=== PATIENT | female | born 1940 | race Caucasian/White ===

== ENCOUNTER → 2018-01-05 09:22 | Outpatient (POV) | payer MEDICARE, SELFPAY | PROVIDERS: Family Provider Internal Medicine; PCP Internal Medicine; Visit Provider Internal Medicine | DX: Z00.00 Encounter for general adult medical examination without abnormal findings (principal) ==

== ENCOUNTER → 2018-01-11 12:51 | Outpatient (CLI) | payer MEDICARE, OTHER, SELFPAY ==
--- NOTE | 2018-01-11 | CI_ITS ---
Cerebrovascular Exam Indications: 785.9 Bruit. Dementia. HTN. IMPRESSIONS 1. The bilateral vertebral arteries are patent with normal antegrade flow. 2. Study suggests 20-49% stenosis involving the right internal carotid artery and the left internal carotid artery. No change from the study of 31-Dec-2016. History: A bruit of the right carotid artery. Memory loss. Carotid duplex study. Complete study and Doppler flow study including spectral analysis, color and garber scale imaging. Height: Height: 165.1cm. Height: 65in. Weight: Weight: 70.3kg. Weight: 154.7lb. Body mass index: BMI: 25.8kg/m^2. Body surface area: BSA: 1.81m^2. Location: Vascular laboratory. Patient status: Outpatient. Tables: Arterial flow: + +--------+--------+ Location V sys V ed + +--------+--------+ Right CCA - proximal 116cm/s 18.1cm/s + +--------+--------+ Right CCA - distal 116cm/s 20.4cm/s + +--------+--------+ Right ECA 121cm/s -------- + +--------+--------+ Right ICA - proximal 99.8cm/s 29.9cm/s + +--------+--------+ Right ICA - mid 86.4cm/s 25.1cm/s + +--------+--------+ Right ICA - distal 93.5cm/s 27.5cm/s + +--------+--------+ Right vertebral 63.6cm/s -------- + +--------+--------+ Left CCA - proximal 95.9cm/s 18.9cm/s + +--------+--------+ Left CCA - distal 92.7cm/s 18.9cm/s + +--------+--------+ Left ECA 112cm/s -------- + +--------+--------+ Left ICA - proximal 67.9cm/s 17cm/s + +--------+--------+ Left ICA - mid 83.6cm/s 23.3cm/s + +--------+--------+ Left ICA - distal 88cm/s 23.9cm/s + +--------+--------+ Left vertebral 69.8cm/s -------- + +--------+--------+ Velocity ratios: + + + + + + Right, V sys Right, V ed Left, V sys Left, V ed + + + + + + Max ICA/dist CCA 0.86 1.47 0.95 1.26 + + + + + + (Report amended ) Electronically signed by: Evan Griggs [id number]
== END ==
PROVIDERS: Family Provider Internal Medicine; PCP Internal Medicine; Visit Provider Internal Medicine
DX: R09.89 Other specified symptoms and signs involving the circulatory and respiratory systems (principal)
CPT/HCPCS: 93880

== ENCOUNTER → 2018-03-22 11:23 | Outpatient (POV) | payer MEDICARE, SELFPAY | PROVIDERS: Visit Provider Nurse Practitioner Acute Care | DX: Z00.00 Encounter for general adult medical examination without abnormal findings (principal) ==

== ENCOUNTER → 2018-05-24 14:47 | Outpatient (POV) | payer MEDICARE, OTHER, SELFPAY | PROVIDERS: Visit Provider Nurse Practitioner Acute Care | DX: Z00.00 Encounter for general adult medical examination without abnormal findings (principal) ==

== ENCOUNTER → 2018-08-24 14:02 | Outpatient (POV) | payer MEDICARE, OTHER, SELFPAY | PROVIDERS: Visit Provider Dermatology | DX: Z00.00 Encounter for general adult medical examination without abnormal findings (principal) ==

== ENCOUNTER → 2018-09-14 10:39 | Outpatient (POV) | payer MEDICARE, OTHER, SELFPAY | PROVIDERS: Visit Provider Dermatology | DX: Z00.00 Encounter for general adult medical examination without abnormal findings (principal) ==

== ENCOUNTER → 2018-10-13 14:49 | Outpatient (CLI) | payer MEDICARE, OTHER, SELFPAY ==
--- NOTE | 2018-10-13 14:57 | XR_ITS ---
EXAM: XR cervical spine 5V HISTORY: ITS.REASON: NECK PAIN RADIATES TO LEFT SHOULDER ORDERING PHYSICIAN: Eloy Ruiz PATIENT AGE: 77 years COMPARISON: 06/10/2012. FINDINGS: There is generalized moderate osteopenia. There is minimal anterior subluxation of C4 on C5 which is stable and likely related to the facet hypertrophy. The anterior compression plate and fixation screws with osseous fusion across the disc space at C5-6 appear stable. Posterior elements are intact. The facet hypertrophy causes moderate osseous foraminal stenosis bilaterally at C3-4. There is no prevertebral soft tissue prominence. IMPRESSION: Osteopenia. No acute process. C4 on C5 subluxation is chronic and likely from facet arthrosis. Stable postoperative findings at C5-6. Moderate osseous foraminal stenosis because of facet arthrosis bilaterally at C3-4.
== END ==
PROVIDERS: PCP Internal Medicine; Visit Provider Internal Medicine
DX: M54.2 Cervicalgia (principal)
CPT/HCPCS: 72050

== ENCOUNTER 2018-12-15 14:00 | Outpatient (RCR) | payer MEDICARE, OTHER, SELFPAY | END 2018-12-15 14:05 | disposition home or self-care (01) | LOC: PT 14:00 | PROVIDERS: Visit Provider Internal Medicine | DX: M54.12 Radiculopathy, cervical region (principal) | CPT/HCPCS: 97010; 97014; 97035; 97110; 97140; 97163; G0283 ==

== ENCOUNTER → 2019-02-15 13:57 | Outpatient (POV) | payer MEDICARE, OTHER, SELFPAY | PROVIDERS: Visit Provider Dermatology | DX: Z00.00 Encounter for general adult medical examination without abnormal findings (principal) ==

== ENCOUNTER → 2020-06-11 16:26 | Outpatient (CLI) | payer MEDICARE, OTHER, SELFPAY ==
[2020-06-11 18:49] LABS: Coronavirus 19 IgG Antibody Positive (Negative); Coronavirus 19 IgM Antibody Negative (Negative)
== END ==
PROVIDERS: Visit Provider Ophthalmology
DX: Z01.812 Encounter for preprocedural laboratory examination (principal); Z20.822 Contact with and (suspected) exposure to COVID-19; Z86.16 Personal history of COVID-19; H25.11 Age-related nuclear cataract, right eye
CPT/HCPCS: 36415; 86328

== ENCOUNTER 2020-06-12 07:30 | Day surgery (SDC) | payer MEDICARE, SELFPAY ==
[2020-06-12 08:27] VITALS: BP 168/103; PULSE 76; RESP 16; TEMP 36.6; O2SAT 93; BMI 26.7
[2020-06-12 09:20] VITALS: BP 137/62; PULSE 64; RESP 18; O2SAT 93
[2020-06-12 09:25] VITALS: BP 128/60; PULSE 63; RESP 18; O2SAT 93
[2020-06-12 09:30] VITALS: BP 135/63; PULSE 60; RESP 18; O2SAT 96
[2020-06-12 09:35] VITALS: BP 143/64; PULSE 62; RESP 18; O2SAT 96
[2020-06-12 09:40] VITALS: BP 161/76; PULSE 68; RESP 16; TEMP 36.4; O2SAT 94
== END 2020-06-12 09:48 | disposition home or self-care (01) ==
LOC: OR 07:35
PROVIDERS: PCP Internal Medicine Adolescent Medicine; Visit Provider Ophthalmology
DX: H25.813 Combined forms of age-related cataract, bilateral (principal); H53.149 Visual discomfort, unspecified; I10 Essential (primary) hypertension; E78.5 Hyperlipidemia, unspecified; M19.90 Unspecified osteoarthritis, unspecified site; H91.90 Unspecified hearing loss, unspecified ear; Z88.0 Allergy status to penicillin; Z85.828 Personal history of other malignant neoplasm of skin
CPT/HCPCS: 66984; V2632

== ENCOUNTER → 2020-06-25 12:32 | Outpatient (CLI) | payer MEDICARE, SELFPAY ==
[2020-06-25 13:51] LABS: Coronavirus 19 IgG Antibody Positive (Negative); Coronavirus 19 IgM Antibody Negative (Negative)
== END ==
PROVIDERS: Visit Provider Ophthalmology
DX: Z01.812 Encounter for preprocedural laboratory examination (principal)
CPT/HCPCS: 36415; 86328

== ENCOUNTER 2020-06-26 08:36 | Day surgery (SDC) | payer MEDICARE, SELFPAY ==
[2020-06-19 11:45] VITALS: BMI 25.9
[2020-06-26 09:33] VITALS: BP 148/70; PULSE 73; RESP 18; TEMP 36.6; O2SAT 94
[2020-06-26 10:37] VITALS: BP 168/70; PULSE 61; RESP 16; O2SAT 94
[2020-06-26 10:42] VITALS: BP 139/64; PULSE 61; RESP 16; O2SAT 97
[2020-06-26 10:47] VITALS: BP 147/55; PULSE 59; RESP 16; O2SAT 99
[2020-06-26 10:52] VITALS: BP 144/66; PULSE 59; RESP 16; O2SAT 99
[2020-06-26 10:57] VITALS: BP 133/72; PULSE 65; RESP 16; TEMP 36.8; O2SAT 93
== END 2020-06-26 11:10 | disposition home or self-care (01) ==
LOC: OR 08:38
PROVIDERS: PCP Internal Medicine Adolescent Medicine; Visit Provider Ophthalmology
DX: H25.813 Combined forms of age-related cataract, bilateral (principal); H53.149 Visual discomfort, unspecified; I10 Essential (primary) hypertension; E78.5 Hyperlipidemia, unspecified; M19.90 Unspecified osteoarthritis, unspecified site; H91.90 Unspecified hearing loss, unspecified ear; Z85.828 Personal history of other malignant neoplasm of skin; Z87.19 Personal history of other diseases of the digestive system; Z88.0 Allergy status to penicillin; Z88.2 Allergy status to sulfonamides; Z79.899 Other long term (current) drug therapy; Z79.82 Long term (current) use of aspirin
CPT/HCPCS: 66984; V2632

== ENCOUNTER 2020-08-25 11:15 | Emergency (ER) | payer MEDICARE, SELFPAY ==
[2020-08-25 12:07] LABS: Apearance,Urine Clear (Clear); Color,Urine Yellow (Yellow); Protein,Urine Negative (Negative); Specific Gravity, Urine 1.025 (1.005-1.030)
[2020-08-25 12:08] LABS: Bilirubin,Urine Negative (Negative); Blood, Urine Negative (Negative); Glucose,Urine (UA) Negative (Negative); Ketones,Urine Negative (Negative); UTC Leukocyte Esterase,Urine Negative (Negative); UTC Nitrate,Urine Negative (Negative); Urobilinogen,Urine 0.2 EU/dl (0.2)
[2020-08-25 12:14] VITALS: BP 159/80; PULSE 75; RESP 17; TEMP 36.8; O2SAT 95; BMI 25.8
--- NOTE | 2020-08-25 12:23 | HMH.EDUTC ---
[facility] [place] Clinical Impression: Low back pain Qualifiers: Chronicity: acute Back pain laterality: right Sciatica presence: without sciatica Qualified Code(s): M54.5 - Low back pain Disposition: Home, Self-Care Condition on Discharge: Good Instructions: DI for Low Back Pain, Methocarbamol Additional Instructions: Go home and rest. No heavy lifting. No twisting. Take the oral medications as directed. The muscle relaxer (robaxin) will make you drowsy, so don't drive or operate heavy machinery after taking it. Follow up with your regular doctor. GO TO THE ER FOR ANY WORSENING SYMPTOMS OR CONCERN, ESPECIALLY BOWEL OR BLADDER ISSUES, SADDLE AREA NUMBNESS, FEVER, ETC Prescriptions: methocarbamoL [Methocarbamol] 500 mg PO BIDP PRN #30 tab PRN Reason: Muscle Spasm Transmission Status: Received by [facility] predniSONE [Prednisone 20mg Tab] 20 mg PO BID 3 Days #6 tab Transmission Status: Received by [facility] Referrals: Stephan Tello MD [Primary Care Provider] - Time of Disposition: 12:25 Medical Decision Making - Medical Records Medical records reviewed: No: I reviewed the patient's medical records. - [place] Inquiry Pt receiving controlled substance: No Vital Signs: 08/25/20 12:14 08/25/20 12:27 Temperature 98.2 F 98.2 F Temperature Source Oral Pulse Rate 75 Pulse Rate [Left] 75 Respiratory Rate 17 17 Blood Pressure 159/80 H Blood Pressure [Right Arm] 159/80 H Blood Pressure Mean [Right Arm] 106 Blood Pressure Source [Right Arm] Automatic Cuff Blood Pressure Position [Right Arm] Sitting 02 Sat by Pulse Oximetry 95 Oxygen Delivery Method Room Air - Lab Data Lab results reviewed: Yes: I reviewed the patient's lab results. Lab Results 08/25/20 11:49: Urine Color Yellow, Urine Appearance Clear, Urine pH 7.0, Ur Specific [place] 1.025, Urine Protein Negative, Urine Glucose (UA) Negative, Urine Ketones Negative, Urine Blood Negative, Urine Nitrate Negative, Urine Bilirubin Negative, Urine Urobilinogen 0.2, Ur Leukocyte Esterase Negative [facility] [place] - General Stated complaint: back pain no AO Time Seen by Provider: 08/25/20 12:20 Mode of Arrival: Ambulatory Source of Information: Patient, Relative Limitations: No Limitations Description of Symptoms (Recalled from Triage Doc. by RN): Lower right back pain HEENT Symptoms (Recalled from RN notes): No Resp Symptoms (Recalled from RN notes): No Skin Symptoms (Recalled from RN notes): No MS Symptoms (Recalled from RN notes): Yes Functional Status (Recalled from RN notes): wnl - History of Present Illness Provider Complaint: She c/o low back pain for the past 3 days. She denies any injury. - Related Data Home Medications Medication Instructions Recorded Confirmed aspirin 81 mg tablet,delayed 81 mg PO DAILY 02/25/18 06/19/20 release cholecalciferol (vitamin D3) 125 5,000 unit PO DAILY 02/25/18 06/19/20 mcg (5,000 unit) capsule famotidine 20 mg tablet 20 mg PO BID 02/25/18 06/19/20 gabapentin 300 mg capsule 300 mg PO BID 02/25/18 06/19/20 lovastatin 40 mg tablet 40 mg PO QPM 02/25/18 06/19/20 memantine 10 mg tablet 10 mg PO BID 02/25/18 06/19/20 metoprolol tartrate 50 mg tablet 50 mg PO BID 02/25/18 06/19/20 multivitamin,tl-ukvw-gwdwjcsg 1 tab PO DAILY 02/25/18 06/19/20 oxycodone-acetaminophen 5 mg-325 1 tab PO Q4-6H PRN 02/25/18 06/26/20 mg tablet ranitidine HCl 300 mg capsule 300 mg PO QHS 02/25/18 06/19/20 verapamil 240 mg 24 hr 240 mg PO DAILY 02/25/18 06/19/20 capsule,extended release Furosemide [Lasix 20mg tab] 20 mg PO DAILY 06/12/20 06/19/20 Sucralfate [Carafate 1gm Tab] 1 gm PO ACHS 06/12/20 06/19/20 Previous Rx's Medication Instructions Recorded Albuterol Sulfate [Albuterol HFA 2 puffs IH Q6HP PRN #1 inh 04/23/18 Inhaler] methocarbamoL [Methocarbamol] 500 mg PO BIDP PRN #30 tab 08/25/20 predniSONE [Prednisone 20mg 20 mg PO BID 3 Days #6 tab 0
[2020-08-25 12:27] VITALS: BP 159/80; PULSE 75; RESP 17; TEMP 36.8; O2SAT 95
== END 2020-08-25 12:28 | disposition home or self-care (01) ==
PROVIDERS: Emergency Provider Nurse Practitioner Family; PCP Internal Medicine Adolescent Medicine
DX: M54.5 Low back pain (principal); E78.5 Hyperlipidemia, unspecified; I10 Essential (primary) hypertension; Z88.0 Allergy status to penicillin; Z88.2 Allergy status to sulfonamides; Z79.899 Other long term (current) drug therapy
CPT/HCPCS: G0463; 81003; 99202

== ENCOUNTER → 2021-03-07 10:04 | Outpatient (CLI) | payer MEDICARE, SELFPAY ==
[2021-03-07 11:30] LABS: Alanine Aminotransferase 22 U/L (12-78); Albumin Level 4.3 g/dl (3.5-5.0); Alkaline Phosphatase 63 U/L (38-126); Anion Gap 10.3 mEq/L (5-15); Aspartate Amino Transferase 28 U/L (14-36); Bilirubin,Total 0.4 mg/dl (0.2-1.3); Blood Urea Nitrogen 16 mg/dl (7-17); Calcium 9.4 mg/dl (8.4-10.2); Carbon Dioxide 30 mmol/L (22.0-30.0); Chloride 102 mmol/L (98-107); Chol/HDL Ratio 2.4 (1-3.5); Cholesterol 145 mg/dl (140-200); Estimated Glomerular Filt Rate 96 ml/min (>60); GFR (African American) 116 ML/MIN (>60); Globulin 2.2 g/dL (1.3-3.2); Glucose 110 mg/dl (74-100); HDL Cholesterol 61 mg/dl (40-60); Potassium 4.3 mmoL/L (3.5-5.1); Sodium 138 mmol/L (136-145); Total Protein,Serum 6.5 g/dl (6.3-8.2); Triglycerides 142 mg/dl (30-150); VLDL Cholesterol 28 mg/dL (0-40)
[2021-03-07 11:40] LABS: Direct LDL Cholesterol 65.18 mg/dL (100-129)
== END ==
PROVIDERS: Visit Provider Nurse Practitioner Family
DX: I10 Essential (primary) hypertension (principal); R73.03 Prediabetes; E78.5 Hyperlipidemia, unspecified
CPT/HCPCS: 36415; 80053; 80061; 83036

== ENCOUNTER → 2022-02-11 11:11 | Outpatient (POV) | payer MEDICARE, SELFPAY | PROVIDERS: Visit Provider Dermatology | DX: Z00.00 Encounter for general adult medical examination without abnormal findings (principal) ==

== ENCOUNTER → 2022-04-07 08:51 | Outpatient (CLI) | payer MEDICARE, SELFPAY ==
--- NOTE | 2022-04-07 08:58 | CT_ITS ---
FINAL REPORT CLINICAL HISTORY: ACUTE MIDLINE LOW BACK PAIN FINDINGS: Axial imaging of the lumbar spine was obtained without contrast. Sagittal and coronal reformatted images were also obtained and reviewed.This study was performed with techniques to keep radiation doses as low as reasonably achievable (ALARA). Individualized dose reduction techniques using automated exposure control or adjustment of mA and/or kV according to the patient's size were employed. There is fusion of L3 through L5. There is rightward curvature. There is a moderate L5 inferior endplate compression fracture with 40% loss of central height. The L5 vertebral body has a heterogeneous appearance and a pathologic fracture is not excluded. There is no evidence of significant central canal stenosis. T11-T12: There is an annular disc bulge with facet arthropathy and vertebral osteophytes. There is severe right and moderate left neural foraminal narrowing. T12-L1: There is an annular disc bulge with facet arthropathy and vertebral osteophytes. There is mild right neural foraminal narrowing. L1-2: There is an annular disc bulge with facet arthropathy and vertebral osteophytes. There is mild right and moderate left neural foraminal narrowing. L2-3: There is an annular disc bulge with facet arthropathy and vertebral osteophytes. There is mild right and moderate left neural foraminal narrowing. L3-4: There is fusion at this level with facet arthropathy and vertebral osteophytes. L4-5: There is fusion at this level with L4 laminectomies. There is facet arthropathy and vertebral osteophytes with mild bilateral neural foraminal narrowing. L5-S1: There is an annular disc bulge with facet arthropathy and vertebral osteophytes. There is moderate bilateral neural foraminal narrowing. There is spurring of the SI joints. IMPRESSION: Multilevel degenerative change and spondylosis with areas of neural foraminal narrowing which is worse on the right at T11-12. Moderate L5 inferior endplate compression fracture the or with 40% loss of central height. L5 vertebral body has heterogeneous appearance and a pathologic fracture is not excluded. Reviewed, Interpreted and Dictated by Barron Carrasco III, MD Transcribed by Toya Lepe Authenticated and [facility]
== END ==
PROVIDERS: PCP Internal Medicine Adolescent Medicine; Visit Provider Nurse Practitioner Family
DX: M54.42 Lumbago with sciatica, left side (principal)
CPT/HCPCS: 72131

== ENCOUNTER 2023-06-27 16:34 | Emergency (ER) | payer MEDICARE, SELFPAY ==
[2023-06-27 16:45] VITALS: BP 177/79; PULSE 80; RESP 18; TEMP 36.4; O2SAT 93; BMI 29.2
--- NOTE | 2023-06-27 16:57 | XR_ITS ---
PROCEDURE INFORMATION: Exam: XR Lumbosacral Spine Exam date and time: 06/27/2023 4:59 PM Age: 82 years old Clinical indication: Low back pain TECHNIQUE: Imaging protocol: Radiologic exam of the lumbosacral spine. Views: 2 or 3 views. COMPARISON: CT LUMBAR SPINE WO CON 04/07/2022 9:11 AM FINDINGS: Bones/joints: Osteopenia. Moderate rightward convexity lumbar scoliotic curvature centered at L2-L3. L3-L5 laminectomy and fusion without gross hardware complication. No acute fractures. Chronic mild-moderate inferior endplate compression deformity of L5 unchanged. Chronic severe disc degenerative changes T10-11 through L2-L3 Soft tissues: No gross soft tissue abnormalities. Gastrointestinal tract: Unremarkable bowel gas pattern. Vasculature: Moderate-severe calcific atherosclerosis. Intrapelvic phleboliths noted. IMPRESSION: No acute findings.
--- NOTE | 2023-06-27 16:57 | XR_ITS ---
PROCEDURE INFORMATION: Exam: XR Left Hip Exam date and time: 06/27/2023 4:57 PM Age: 82 years old Clinical indication: Hip pain; Left hip TECHNIQUE: Imaging protocol: Radiologic exam of the left hip. Views: 2 or 3 views hip with pelvis when performed. COMPARISON: ABDPELW/O CT ABD PELVIS W/O CONTRAST 02/26/2017 10:51 AM FINDINGS: Bones/joints: Osteopenia. No fracture or dislocation. 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 No diastasis. L3-S1 fusion without gross hardware complication or change. Mild enthesopathy at the ischial tuberosities and greater trochanters. Soft tissues: No gross soft tissue abnormalities. IMPRESSION: No acute findings.
--- NOTE | 2023-06-27 17:00 | PC.NURSE ---
Called RAD for xray
--- NOTE | 2023-06-27 17:13 | EXP.UTC ---
Discharge Plan Disposition Patient Disposition: Home, Self-Care Condition: Good Prescriptions Prescriptions: New prednisone 20 mg tablet 20 mg PO BID Qty: 10 0RF No Action memantine 10 mg tablet 10 mg PO BID verapamil 240 mg capsule,ext rel. pellets 24 hr 240 mg PO DAILY lovastatin 40 mg tablet 40 mg PO QPM gabapentin 300 mg capsule 300 mg PO BID oxycodone-acetaminophen 5-325 mg tablet 1 tab PO Q4-6H PRN (Reason: pain) aspirin [Adult Low Dose Aspirin] 81 mg tablet,delayed release (DR/EC) 81 mg PO DAILY Complete Multivitamin tablet 1 tab PO DAILY cholecalciferol (vitamin D3) 5,000 unit capsule 5,000 unit PO DAILY sucralfate 1 GM tablet 1 gm PO ACHS furosemide 20 MG tablet 20 mg PO DAILY potassium chloride 10 mEq capsule, extended release 10 meq PO DAILY omeprazole 20 mg capsule,delayed release(DR/EC) 20 mg PO DAILY Referrals Follow up/Referrals: Stephan Tello MD [Primary Care Provider] - See instructions Clinical Impressions Clinical Impression: Arthritis Low back pain Qualifiers: Chronicity: acute Back pain laterality: right Sciatica presence: without sciatica Qualified Code(s): M54.5 - Low back pain Instructions Patient Instructions: DI for Low Back Pain Discharge ED Provider: Alfreda ([facility])David [facility] General Stated complaint: lower back pain Mode of Arrival: Ambulatory Source of Information: Patient Limitations: No Limitations Time Seen by Provider: 06/27/23 17:08 Description of Symptoms (Recalled from Triage Doc. by RN): Pt's symptoms are lower back pain. She has been walking more than usual. HEENT Symptoms (Recalled from RN notes): Yes Resp Symptoms (Recalled from RN notes): No Skin Symptoms (Recalled from RN notes): No MS Symptoms (Recalled from RN notes): No Functional Status (Recalled from RN notes): n/a History of Present Illness Provider Complaint: 82 yr old female presents for c/o lower back pain. She has been walking more than usual. pt with walking Related Data Home Medications Medication Instructions Recorded Confirmed aspirin 81 mg tablet,delayed 81 mg PO DAILY Heart disease 02/25/18 06/27/23 release (Adult Low Dose Aspirin) cholecalciferol (vitamin D3) 125 5,000 unit PO DAILY Supplement 02/25/18 06/27/23 mcg (5,000 unit) capsule gabapentin 300 mg capsule 300 mg PO BID Pain 02/25/18 06/27/23 lovastatin 40 mg tablet 40 mg PO QPM Cholesterol 02/25/18 06/27/23 memantine 10 mg tablet 10 mg PO BID memory 02/25/18 06/27/23 multivitamin,zt-nlfv-alwjealy 1 tab PO DAILY Supplement 02/25/18 06/27/23 (Complete Multivitamin tablet) oxycodone-acetaminophen 5 mg-325 1 tab PO Q4-6H PRN pain 02/25/18 06/27/23 mg tablet verapamil 240 mg 24 hr 240 mg PO DAILY blood pressure 02/25/18 06/27/23 capsule,extended release furosemide 20 mg tablet 20 mg PO DAILY Edema 06/12/20 06/27/23 sucralfate 1 gram tablet 1 gm PO ACHS stomach 06/12/20 06/27/23 omeprazole 20 mg capsule,delayed 20 mg PO DAILY 06/27/23 06/27/23 release potassium chloride 10 mEq 10 meq PO DAILY 06/27/23 06/27/23 capsule,extended release Previous Rx's Medication Instructions Recorded prednisone 20 mg tablet 20 mg PO BID #10 tabs 06/27/23 Allergies Allergy/AdvReac Type Severity Reaction Status Date / Time Penicillins [PENICILLINS] Allergy Unknown I-RASH Verified 06/27/23 17:10 Sulfa (Sulfonamide Allergy Unknown I-RASH Verified 06/27/23 17:10 Antibiotics) [SULFA (SULFONAMIDE ANTIBIOTICS)] Worker's Comp Is this a Worker's Comp case?: No [facility] Disclaimer: The information contained in this section may have been updated after the patient was seen, as this information can be updated by other users. 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 , [employer]) Smoking Status: Never smoker second hand exposure: No alcohol intake: never current occupational status: other Travel in the last 8 weeks: None household members: family housing: house current occupational exposures/hazards: No caffeine: No ROS Obtained: Yes All systems reviewed & no additional complaints except as documented Constitutional Constitutional: Reports system reviewed and no additional complaints, except as documented Eyes Eyes: Reports system reviewed and no additional complaints, except as documented ENT Ears, Nose, Mouth, and Throat: Reports system reviewed and no additional complaints, except as documented Cardiovascular Cardiovascular: Reports system reviewed and no additional complaints, except as documented Respiratory Respiratory: Reports system reviewed and no additional complaints, except as documented Gastrointestinal Gastrointestingal: Reports system reviewed and no additional complaints, except as documented Genitourinary Female Genitourinary: Reports system reviewed and no additional complaints, except as documented, Reports as per HPI and Reports urinary frequency Musculoskeletal Musculoskeletal: Reports system reviewed and no additional complaints, except as documented, Reports as per HPI, Reports arthralgias and Reports back pain Integumentary/Breasts Skin/Breast: Reports system reviewed and no additional complaints, except as documented Neurologic Neurologic: Reports system reviewed and no additional complaints, except as documented Endocrine Endocrine: Reports system reviewed and no additional complaints, except as documented Hematologic/Lymphatic Henatologic/Lymphatic: Reports system reviewed and no additional complaints, except as documented Allergic/Immunologic Allergic/Immunologic: Reports system reviewed and no additional complaints, except as documented Physical Exam General General appearance: alert and in no apparent distress Head Head exam: atraumatic Eye Eye exam: Present normal appearance and PERRL ENT ENT exam: Present normal exam Respiratory Respiratory exam: Present normal lung sounds bilaterally Cardiovascular Cardiovascular exam: Present regular rate and normal rhythm Extremities Exam Extremities exam: Present normal inspection and normal capillary refill Back Exam Back exam: Present normal inspection, tenderness and CVA tenderness (L) Back 1 view image: 1. tender Neurological Exam Neurological exam: Present alert Skin Skin exam: Present warm and intact Medical Decision Making Medical Records Medical records reviewed: Yes I reviewed the patient's medical records. [place] Inquiry Pt receiving controlled substance: No [place] was queried for this patient: No Vital Signs: 06/27/23 16:45 Temperature 97.6 F Temperature Source Oral Pulse Rate [Right Radial] 80 Respiratory Rate 18 Blood Pressure [Right Arm] 177/79 H Blood Pressure Mean [Right Arm] 111 Blood Pressure Source [Right Arm] Automatic Cuff Blood Pressure Position [Right Arm] Sitting 02 Sat by Pulse Oximetry 93 L Oxygen Delivery Method Room Air Lab Data Lab results reviewed: Yes I reviewed the patient's lab results. Orders (Tests/Meds): ORDERS Category Date Time Status Hip XR left minimum 2 views [XR hip LT 2-3V w/pelvis] Exams 06/27/23 16:57 Taken Stat Lumbar spine XR 2-3 views [XR lumbar spine 2-3V] Stat Exams 06/27/23 16:57 Taken
[2023-06-27 17:42] LABS: Apearance,Urine Clear (Clear); Bilirubin,Urine Negative (Negative); Blood, Urine Negative (Negative); Color,Urine Yellow (Yellow); Glucose,Urine (UA) Negative (Negative); Ketones,Urine Negative (Negative); PH,Urine 5.5 (5.0-8.5); Protein,Urine Negative (Negative); UTC Leukocyte Esterase,Urine Negative (Negative); UTC Nitrate,Urine Negative (Negative); Urobilinogen,Urine 0.2 EU/dl (0.2)
[2023-06-27 18:12] VITALS: BP 177/79; PULSE 80; RESP 18; TEMP 36.4; O2SAT 94
== END 2023-06-27 18:12 | disposition home or self-care (01) ==
PROVIDERS: Emergency Provider Nurse Practitioner Family; PCP Internal Medicine Adolescent Medicine
DX: M54.50 Low back pain, unspecified (principal); M16.9 Osteoarthritis of hip, unspecified
CPT/HCPCS: 72100; 73502; 81003; 99212; 99214; G0463

== ENCOUNTER 2023-12-24 20:25 | Inpatient (IN) | payer MEDICARE, SELFPAY ==
[2023-12-24] VITALS (11 sets, daily range): BP systolic 101–132; BP diastolic 57–81; PULSE 77–140; RESP 19–29; TEMP 36.7; O2SAT 91–98; BMI 32.9
--- NOTE | 2023-12-24 20:36 | ECG_ITS ---
APPROVED REPORT Exam: Resting ECG HR:134 bpm ECG Measurements Heart Rate 134 AXES QRSd 142 QRS 20 QT 343 T 195 QTc 422 Conclusion ATRIAL FIBRILLATION WITH RAPID VENTRICULAR RESPONSE LEFT BUNDLE BRANCH BLOCK [120+ ms QRS DURATION, 80+ ms Q/S IN V1/V2, 85+ ms R IN I/aVL/V5/V6] ABNORMAL ECG UNCONFIRMED REPORT Electronically signed by : JESSICA ELLSWORTH, 12/25/2023 00:32:36
--- NOTE | 2023-12-24 21:01 | CT_ITS ---
PROCEDURE INFORMATION: Exam: CT Head Without Contrast Exam date and time: 12/24/2023 9:13 PM Age: 83 years old Clinical indication: Other: Confusion TECHNIQUE: Imaging protocol: Computed tomography of the head without contrast. Radiation optimization: All CT scans at this facility use at least one of these dose optimization techniques: automated exposure control; mA and/or kV adjustment per patient size (includes targeted exams where dose is matched to clinical indication); or iterative reconstruction. COMPARISON: CR (C SPINE OBL, CSPINE, C SPINE OBL) 10/13/2018 3:05 PM FINDINGS: Tubes, catheters and devices: Lithia artifact from bilateral cochlear implants with prior mastoidectomies. Brain: No evidence for intracranial hemorrhage, mass lesions or acute stroke. Intracranial vascular calcifications. Moderate small vessel ischemic change in the periventricular white matter. Cerebral ventricles: Moderate ventricular prominence. Pituitary gland and sella: Negative Paranasal sinuses: Visualized sinuses are unremarkable. No fluid levels. Mastoid air cells: Visualized mastoid air cells are well aerated. Orbital cavities: Bilateral cataract extractions. Parotid and submandibular glands: Negative Bones: Unremarkable. No acute fracture. Soft tissues: Unremarkable. Vasculature: Negative. Other findings: Mild generalized atrophy. Lithia artifact from the external portion of the cochlear implants. IMPRESSION: 1. No evidence for intracranial hemorrhage, mass lesions or acute stroke. 2. Intracranial vascular calcifications. 3. Mild generalized atrophy. 4. Moderate small vessel ischemic change in the periventricular white matter. 5. Moderate ventricular prominence. 6. Lithia artifact from bilateral cochlear implants with prior mastoidectomies. 7. Lithia artifact from the external portion of the cochlear implants. 8. Bilateral cataract extractions.
--- NOTE | 2023-12-24 21:01 | XR_ITS ---
PROCEDURE INFORMATION: Exam: XR Chest Exam date and time: 12/24/2023 9:09 PM Age: 83 years old Clinical indication: Shortness of breath; Additional info: SOB TECHNIQUE: Imaging protocol: Radiologic exam of the chest. Views: 1 view. COMPARISON: CR CXR2V XR chest 2V 04/23/2018 2:42 PM FINDINGS: Lungs: Mild indistinctness of the pulmonary vessels. Low lung volumes. Patchy opacification retrocardiac left lower lobe. Pleural spaces: Unremarkable. No pleural effusion. No pneumothorax. Heart/Mediastinum: Mild cardiomegaly. Bones/joints: Unremarkable. IMPRESSION: 1. Mild cardiomegaly. 2. Mild indistinctness of the pulmonary vessels. Venous congestion versus perihilar atelectasis. 3. Low lung volumes. 4. Patchy opacification retrocardiac left lower lobe. Atelectasis or consolidation left lower lobe.
[2023-12-24] MEDS: RINGERS SOLUTION,LACTATED 500 ML 999 ML IV (21:11)
--- NOTE | 2023-12-24 21:11 | PC.NURSE ---
pt to radiology at this time
[2023-12-24 21:19] LABS: Coronavirus 19, PCR Not Detected (NotDetected); Influenza A, PCR Not Detected (NotDetected); Influenza B, PCR Not Detected (NotDetected)
[2023-12-24 21:21] LABS: Basophils # 0.1 K/mm3 (0-0.2); Basophils % 0.7 % (0.1-2.0); Eosinophils # 0.1 K/mm3 (0.0-0.4); Eosinophils % 0.7 % (0.1-12.0); Hematocrit 46.1 % (37.0-47.0); Hemoglobin 14.5 g/dL (12.2-16.2); Lymphocytes # 1.7 K/mm3 (0.7-4.5); Lymphocytes % 15.4 % (10-50); Mean Corpuscular HGB Conc 31.5 g/dL (31.8-35.4); Mean Corpuscular Volume 104.9 fl (81-99); Mean Platelet Volume 10.2 fl (7.4-10.4); Monocytes # 0.8 K/mm3 (0.1-1.0); Monocytes % 7.2 % (1.7-9.3); Neutrophils # 8.3 K/mm3 (1.8-7.8); Platelet Count 279 K/mm3 (142-424); Red Cell Distribution Width 13.6 % (11.5-17.5); White Blood Count 10.9 K/mm3 (4.8-10.8)
[2023-12-24 21:24] LABS: Albumin Level 4.3 g/dl (3.5-5.0); Chloride 106 mmol/L (98-107); Sodium 140 mmol/L (136-145)
[2023-12-24 21:25] LABS: Potassium 4.2 mmoL/L (3.5-5.1)
[2023-12-24 21:27] LABS: Alanine Aminotransferase 321 U/L (12-78); Albumin/Globulin Ratio 1.6 (1.1-1.8); Alkaline Phosphatase 93 U/L (38-126); Aspartate Amino Transferase 544 U/L (14-36); Bilirubin,Total 1.1 mg/dl (0.2-1.3); Blood Urea Nitrogen 35 mg/dl (7-17); Carbon Dioxide 26 mmol/L (22.0-30.0); Creatinine Clearance Estimated 55 mL/min (50-200); Estimated Glomerular Filt Rate 60 ml/min (>60); GFR (African American) 72 ML/MIN (>60); Globulin 2.7 g/dL (1.3-3.2); Glucose 159 mg/dl (74-100); Lipase 74 U/L (23-300)
[2023-12-24 21:28] LABS: Calcium 9.3 mg/dl (8.4-10.2); Magnesium 2.2 mg/dl (1.6-2.3)
[2023-12-24] MEDS: METOPROLOL TARTRATE 5MG/5ML VIAL 5 MG IV (21:30)
--- NOTE | 2023-12-24 21:41 | CT_ITS ---
PROCEDURE INFORMATION: Exam: CTA Chest With Contrast Exam date and time: 12/24/2023 10:31 PM Age: 83 years old Clinical indication: Shortness of breath; Additional info: SOB TECHNIQUE: Imaging protocol: Computed tomographic angiography of the chest with contrast. Exam focused on the arteries. 3D rendering (Not supervised by radiologist): MIP and/or 3D reconstructed images were created by the technologist. Radiation optimization: All CT scans at this facility use at least one of these dose optimization techniques: automated exposure control; mA and/or kV adjustment per patient size (includes targeted exams where dose is matched to clinical indication); or iterative reconstruction. Contrast material: ISOVUE; Contrast volume: 70 ml; Contrast route: INTRAVENOUS (IV); COMPARISON: CR XR CHEST PORTABLE 12/24/2023 9:09 PM FINDINGS: Pulmonary arteries: No central or large peripheral pulmonary emboli. Aorta: There is moderate dilation of the ascending aorta. Ascending aorta measures 3.5 cm. The aorta demonstrates mild atherosclerotic calcification. Lungs: Low lung volumes. Ground-glass opacities in the perihilar region. Pleural spaces: Unremarkable. No pneumothorax. No pleural effusion. Heart: Mild cardiomegaly. Coronary arteries: Coronary artery calcifications. Lymph nodes: Unremarkable. No enlarged lymph nodes. Spleen: Calcified splenic granulomas. Bones/joints: Pedicle screws posterior fixation rods L3 through L5. PROCEDURE INFORMATION:. Partially visualized spinal fixation hardware. Multilevel degenerative change of the thoracic spine convex to the left. Multilevel degenerative change of the lumbar spine with multilevel disc space narrowing and vacuum disc phenomenon. Pedicle screws L3 through L5 with posterior fixation rods and L3-L5 laminectomies. Soft tissues: Unremarkable. Other findings: Small effusions. IMPRESSION: 1. No central or large peripheral pulmonary emboli. 2. There is moderate dilation of the ascending aorta. Ascending aorta measures 3.5 cm. 3. Mild cardiomegaly. 4. Low lung volumes. 5. Small effusions. 6. Ground-glass opacities in the perihilar region. Probable venous congestion.
--- NOTE | 2023-12-24 21:42 | CT_ITS ---
PROCEDURE INFORMATION: Exam: CT Abdomen And Pelvis With Contrast Exam date and time: 12/24/2023 10:31 PM Age: 83 years old Clinical indication: Other: Transamitits TECHNIQUE: Imaging protocol: Computed tomography of the abdomen and pelvis with contrast. 3D rendering (Not supervised by radiologist): MIP and/or 3D reconstructed images were created by the technologist. Radiation optimization: All CT scans at this facility use at least one of these dose optimization techniques: automated exposure control; mA and/or kV adjustment per patient size (includes targeted exams where dose is matched to clinical indication); or iterative reconstruction. Contrast material: ISOVUE; Contrast volume: 70 ml; Contrast route: IV; COMPARISON: CT ABDOMEN PELVIS W CON 12/24/2023 10:31 PM FINDINGS: Esophagus: The esophagus is normal. Liver: The liver is normal. Gallbladder and biliary ducts: No intra or extrahepatic biliary ductal dilatation. Infiltrative changes seen around the expected location of the common bile duct image 3/40-43 and coronal image 4/47. Gallbladder not visualized. Pancreas: Pancreas appears normal. Spleen: Calcified splenic granulomas. Adrenal glands: The adrenal glands appear normal. Kidneys and ureters: The kidneys are normal. Stomach and bowel: Nonspecific bowel gas pattern. The right colon is difficult to evaluate likely due to collapsed bowel which is difficult to evaluate and gives the appearance of apparent mucosal thickening image 3/64 and coronal image 4/50. The stomach is normal. Scattered colonic diverticula. Appendix: No secondary signs of appendicitis Intraperitoneal space: Unremarkable. No free air. No significant fluid collection. Vasculature: Portal vein not seen due to arterial phase imaging. The aorta demonstrates mild atherosclerotic calcification. Visceral arteries are patent. Lymph nodes: No free air or fluid or adenopathy. No significant abdominal adenopathy Urinary bladder: The urinary bladder is decompressed by Chandler catheter. Reproductive: Uterus appears normal. Bones/joints: Multilevel degenerative change of the lumbar spine with multilevel disc space narrowing and vacuum disc phenomenon. Pedicle screws L3 through L5 with posterior fixation rods and L3-L5 laminectomies. Soft tissues: Unremarkable. IMPRESSION: 1. No free air or fluid or adenopathy. 2. The liver appears normal. 3. No intra or extrahepatic biliary ductal dilatation. 4. Infiltrative changes seen around the expected location of the common bile duct image 3/40-43 and coronal image 4/47. The etiology is uncertain. MRCP may be helpful. 5. Nonspecific bowel gas pattern. 6. The right colon is difficult to evaluate likely due to collapsed bowel which is difficult to evaluate and gives the appearance of apparent mucosal thickening image 364 and coronal image 50. Repeat study with oral contrast may be helpful.
[2023-12-24 21:46] LABS: Troponin I 1.75 ng/ml (0.00-0.034)
--- NOTE | 2023-12-24 21:53 | HMH.EDGENADL ---
Discharge Plan Disposition Patient Disposition: Admitted Condition: Serious Chief Complaint: Altered Mental Status Clinical Impressions Clinical Impression: Pneumonia, Generalized weakness, Shortness of breath, Atrial fibrillation with RVR, Transaminitis, Elevated brain natriuretic peptide (BNP) level, Elevated troponin Discharge ED Provider: Mian Wylie Adult HPI General Chief complaint: Altered Mental Status Stated complaint: LBP,90/60 HR129 , cant stay aakw Time Seen by Provider: 12/24/23 20:36 Mode of Arrival: Wheelchair Source of Information: Relative Limitations: Altered Mental Status Description of Symptoms (Recalled from ER Triage Doc. by RN): Pt to ED with granddaughter from [facility] with c/o worsening AMS, high heart rate and low blood pressure at [facility]. Pt has hx of dementia. History of Present Illness HPI narrative: 83-year-old female with past medical history significant for HTN, dementia, on Lasix, HLD, GERD, presents today with granddaughter from care facility for evaluation concerning low blood pressure, generalized weakness and mental status change. Granddaughter at bedside states that symptoms have been progressing over the past couple of days. Patient reports shortness of breath but denies any chest pain or abdominal pain. She has not had any nausea, vomiting. Reports that she just does not feel good at this time. Granddaughter at bedside believes that patient may have a UTI. No further complaints Related Data Home Medications ?Medication ?Instructions ?Recorded ?Confirmed aspirin 81 mg tablet,delayed 81 mg PO DAILY Heart disease 02/25/18 06/27/23 release (Adult Low Dose Aspirin) cholecalciferol (vitamin D3) 125 5,000 unit PO DAILY Supplement 02/25/18 06/27/23 mcg (5,000 unit) capsule gabapentin 300 mg capsule 300 mg PO BID Pain 02/25/18 06/27/23 lovastatin 40 mg tablet 40 mg PO QPM Cholesterol 02/25/18 06/27/23 memantine 10 mg tablet 10 mg PO BID memory 02/25/18 06/27/23 multivitamin,nm-[id number] 1 tab PO DAILY Supplement 02/25/18 06/27/23 (Complete Multivitamin tablet) oxycodone-acetaminophen 5 mg-325 1 tab PO Q4-6H PRN pain 02/25/18 06/27/23 mg tablet verapamil 240 mg 24 hr 240 mg PO DAILY blood pressure 02/25/18 06/27/23 capsule,extended release furosemide 20 mg tablet 20 mg PO DAILY Edema 06/12/20 06/27/23 sucralfate 1 gram tablet 1 gm PO ACHS stomach 06/12/20 06/27/23 omeprazole 20 mg capsule,delayed 20 mg PO DAILY 06/27/23 06/27/23 release potassium chloride 10 mEq 10 meq PO DAILY 06/27/23 06/27/23 capsule,extended release Previous Rx's ?Medication ?Instructions ?Recorded prednisone 20 mg tablet 20 mg PO BID #10 tabs 06/27/23 Allergies Allergy/AdvReac Type Severity Reaction Status Date / Time Penicillins [PENICILLINS] Allergy Unknown I-RASH Verified 06/27/23 17:10 Sulfa (Sulfonamide Allergy Unknown I-RASH Verified 06/27/23 17:10 Antibiotics) [SULFA (SULFONAMIDE ANTIBIOTICS)] [facility] Disclaimer: The information contained in this section may have been updated after the patient was seen, as this information can be updated by other users. 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) Smoking Status: Unknown if ever smoked second hand exposure: No alcohol intake: never current occupational status: other Travel in the last 8 weeks: None household members: family housing: house current occupational exposures/hazards: No caffeine: No ROS Obtained: Yes All systems reviewed & no additional complaints except as documented Physical Exam General General appearance: alert, in no apparent distress and other (Ill-appearing) Head Head exam: atraumatic and normocephalic Eye Eye exam: Present normal appearance, PERRL and EOMI ENT ENT exam: Present normal oropharynx and mucous membranes moist Neck Neck exam: Present full ROM; Absent meningismus Respiratory Respiratory exam: Present other (Decreased breath sounds); Absent respiratory distress, wheezes, stridor or accessory muscle use Cardiovascular Cardiovascular exam: Present tachycardia and irregular rhythm Abdominal Exam Abdominal exam: Present soft; Absent distention, tenderness, guarding, rebound or rigidity Extremities Exam Extremities exam: Present normal inspection and edema (2+ pitting edema in bilateral lower extremities) Neurological Exam Neurological exam: Present alert, CN II-XII intact and other (Patient is alert and oriented to person and place. 5 out of 5 strength in bilateral upper and lower extremities. No facial droop.); Absent motor sensory deficit Psychiatric Psychiatric exam: Present normal affect and normal mood Skin Skin exam: Present warm and dry Medical Decision Making Medical Records Medical records reviewed: Yes I reviewed the patient's medical records. [place] Inquiry Pt receiving controlled substance: No [place] was queried for this patient: No Vital Signs: 12/24/23 20:26 12/24/23 21:22 12/24/23 21:27 Temperature 98.1 F Temperature Source Axillary Pulse Rate 140 H 138 H Pulse Rate [Apical] 134 H Respiratory Rate 23 25 H 24 Blood Pressure 117/80 122/70 Blood Pressure [Right Arm] 132/68 Blood Pressure Mean 92 85 Blood Pressure Mean [Right Arm] 89 Blood Pressure Source [Right Arm] Automatic Cuff Blood Pressure Position [Right Arm] Sitting 02 Sat by Pulse Oximetry 94 L 95 96 Oxygen Delivery Method Room Air Nasal Cannula Nasal Cannula Oxygen Flow Rate (LPM) 2 2 12/24/23 21:29 12/24/23 21:31 12/24/23 21:36 Temperature Temperature Source Pulse Rate 125 H 128 H 129 H Pulse Rate [Apical] Respiratory Rate 26 H 23 24 Blood Pressure 110/80 101/76 L 103/77 L Blood Pressure [Right Arm] Blood Pressure Mean 94 84 82 Blood Pressure Mean [Right Arm] Blood Pressure Source [Right Arm] Blood Pressure Position [Right Arm] 02 Sat by Pulse Oximetry 94 L 94 L 92 L Oxygen Delivery Method Nasal Cannula Nasal Cannula Nasal Cannula Oxygen Flow Rate (LPM) 2 2 2 12/24/23 21:39 12/24/23 21:59 12/24/23 22:41 Temperature Temperature Source Pulse Rate 120 H 81 Pulse Rate [Apical] Respiratory Rate 27 H 19 Blood Pressure 103/70 L 116/81 107/60 L Blood Pressure [Right Arm] Blood Pressure Mean 88 90 75 Blood Pressure Mean [Right Arm] Blood Pressure Source [Right Arm] Blood Pressure Position [Right Arm] 02 Sat by Pulse Oximetry 95 98 94 L Oxygen Delivery Method Nasal Cannula Nasal Cannula Oxygen Flow Rate (LPM) 2 2 12/24/23 22:59 12/24/23 23:30 Temperature Temperature Source Pulse Rate 77 114 H Pulse Rate [Apical] Respiratory Rate 21 29 H Blood Pressure 122/57 L 108/63 L Blood Pressure [Right Arm] Blood Pressure Mean 78 78 Blood Pressure Mean [Right Arm] Blood Pressure Source [Right Arm] Blood Pressure Position [Right Arm] 02 Sat by Pulse Oximetry 91 L 96 Oxygen Delivery Method Oxygen Flow Rate (LPM) Lab Data Lab Results 12/24/23 20:47: WBC 10.9 H, RBC 4.40, Hgb 14.5, Hct 46.1, MCV 104.9 H, MCH 33.0 H, MCHC 31.5 L, RDW 13.6, Plt Count 279, MPV 10.2, Neut % (Auto) 76.0, Lymph % (Auto) 15.4, [place] % (Auto) 7.2, Eos % (Auto) 0.7, Baso % (Auto) 0.7, Neut # (Auto) 8.3 H, Lymph # (Auto) 1.7, [place] # (Auto) 0.8, Eos # (Auto) 0.1, Baso # (Auto) 0.1, PT 15.2 H, INR 1.40 H, Sodium 140, Potassium 4.2, Chloride 106, Carbon Dioxide 26, Anion Gap 12.2, BUN 35 H, Creatinine 0.90, Estimated Creat Clear 55, Estimated GFR 60, Est GFR ( Amer) 72, Glucose 159 H, Calcium 9.3, Magnesium 2.2, Total Bilirubin 1.1, AST 544 H*, ALT 321 H*, Alkaline Phosphatase 93, Troponin I 1.75 H, NT-Pro-B Natriuret Pep 09957 H, Total Protein 7.0, Albumin 4.3, Globulin 2.7, Albumin/Globulin Ratio 1.6, Lipase 74 12/24/23 20:57: SARS-CoV-2 (PCR) Not detected, Influenza A Untype (PCR) Not detected, Influenza Type B (PCR) Not detected 12/24/23 20:59: VBG pH 7.34, VBG pCO2 39.8, VBG pO2 45.0 H, VBG HCO3 21.0 L, VBG Total CO2 22.3 L, VBG O2 Saturation 74.4 H, VBG Base Excess -4.7 L, VBG Lactic Acid 4.0 H 12/24/23 22:00: Urine Color Yellow, Urine Appearance Clear, Urine pH 6.0, Ur Specific [place] >= 1.030, Urine Protein Negative, Urine Glucose (UA) Negative, Urine Ketones Negative, Urine Blood Trace-i, Urine Nitrate Negative, Urine Bilirubin Negative, Urine Urobilinogen 1.0, Ur Leukocyte Esterase Negative, Urine RBC Occasional, Urine WBC 3-5, Ur Squamous Epith Cells 3-5, Urine Bacteria 1+, Hyaline Casts 10-20, Urine Mucus 1+ 12/24/23 20:47 12/24/23 20:47 Orders (Tests/Meds): ED MEDICATIONS Generic Name Dose Route Start Last Admin Trade Name Saulq PRN Reason Stop Dose Admin Ceftriaxone Sodium 2 gm/ 100 mls @ 200 mls/hr 12/24/23 22:45 12/24/23 22:56 Sodium Chloride IV 01/03/24 22:44 200 mls/hr Q24H TRAN Administration Azithromycin 500 mg/ Sodium 250 mls @ 250 mls/hr 12/24/23 22:45 Chloride IV 01/03/24 22:44 Q24H TRAN Metoprolol Tartrate 5 mg 12/24/23 20:59 12/24/23 21:30 Metoprolol Tartrate 5mg/5ml Vial IV 01/23/24 20:58 5 mg Q5MINP PRN Administration AFIB Sodium Chloride 10 ml 12/24/23 22:31 12/24/23 22:34 Sodium Chloride 0.9% 10ml Syr (Rad Only) IV 01/23/24 22:30 10 ml NEEDED PRN Administration Maintain IV Site Discontinued Medications Generic Name Dose Route Start Last Admin Trade Name Conner PRN Reason Stop Dose Admin Furosemide 40 mg 12/24/23 22:41 12/24/23 22:56 Furosemide 40mg/4ml Vial IV 12/24/23 22:42 40 mg ONCE ONE Administration Lactated Ringer's 500 mls @ 999 mls/hr 12/24/23 21:04 12/24/23 21:11 Lactated Ringer's 500ml IV 12/24/23 21:34 999 mls/hr .Q31M ONE Administration Iopamidol 70 ml 12/24/23 22:31 12/24/23 22:34 Iopamidol-370 (76%);100ml Bottle IV 12/24/23 22:32 70 ml ONCE ONE Administration Metoprolol Tartrate 25 mg 12/24/23 22:41 12/24/23 23:03 Metoprolol Tartrate 50mg Tablet PO 12/24/23 22:42 25 mg ONCE ONE Administration Sodium Chloride 50 ml 12/24/23 22:31 12/24/23 22:34 0.9 % Sodium Chloride 50 Ml Vial IV 12/24/23 22:32 50 ml ONCE ONE Administration ORDERS Category Date Time Status CT abdomen pelvis w con Stat Cat Scan 12/24/23 21:[address] head/brain wo con Stat Cat Scan 12/24/23 21:01 Completed CTA Chest [CT angio chest PE protocol] Stat Cat Scan 12/24/23 21:41 Completed CXR --portable [XR chest portable] Stat Exams 12/24/23 21:01 Completed BNP [NT Pro Brain Natriuretic Pep.] Stat Lab 12/24/23 20:47 Completed CBC w/Auto Diff [Complete Blood Count Auto Diff] Stat Lab 12/24/23 20:47 Completed CMP [Comprehensive Metabolic Panel] Stat Lab 12/24/23 20:47 Completed Lactic Acid Stat Lab 12/24/23 20:59 Ordered Lipase Stat Lab 12/24/23 20:47 Completed Magnesium Stat Lab 12/24/23 20:47 Completed PT INR [Prothrombin Time INR] Stat Lab 12/24/23 20:47 Completed Rapid PCR Covid and Flu A/B Stat Lab 12/24/23 20:57 Completed Trop I [Troponin I] Stat Lab 12/24/23 20:47 Completed Troponin I Q3H Lab 12/25/23 00:15 Ordered Troponin I Q3H Lab 12/25/23 03:15 Ordered UA [Urinalysis and Microscopic] Stat Lab 12/24/23 22:00 Completed VBG [Venous Blood Gas] Stat RT 12/24/23 20:59 Completed HEART Score History (anamnesis): Moderately suspicious ECG: Non-specific disturbance Age: >65 years Risk factors: 1-2 risk factors Troponin: > 3x normal limit HEART Score: 7 Medical Decision Narrative: 83-year-old female with past medical history significant for HTN, dementia, on Lasix, HLD, GERD, presents today with granddaughter from care facility for evaluation concerning low blood pressure, generalized weakness and mental status change. Granddaughter at bedside states that symptoms have been progressing over the past couple of days. Patient reports shortness of breath but denies any chest pain or abdominal pain. She has not had any nausea, vomiting. Reports that she just does not feel good at this time. Granddaughter at bedside believes that patient may have a UTI. On assessment she was tachycardic with heart rate in the 140s. A-fib with RVR on the monitor. She did have decreased breath sounds. Her abdomen was soft nondistended and nontender to palpation. She did have 2+ pitting edema in her bilateral lower extremities. Able to converse and follow commands appropriately. Neurological exam was nonfocal. She appeared to be very tired and ill overall. Other physical exam findings unremarkable. Differential diagnosis includes not limited to ACS, pneumonia, UTI, intracranial normality, A-fib with RVR, sepsis, CVA, among others. EKG was ordered and personally interpreted by me. It was remarkable for atrial fibrillation with RVR with a rate of 134 bpm. No ischemic changes noted. I did give patient a 500 cc bolus of fluids. Also gave her 5 mg of metoprolol and she was able to be rate controlled and repeat EKG showed sinus rhythm with a sinus arrhythmia with a rate of 80 bpm. No ischemic changes. WBC of 10.9 today. PT/INR 15.2/1.4. VBG with pH of 7.34. pCO2 of 39.8. Lactate of 4. Transaminitis with AST of 544, ALT of 321. Initial troponin significantly elevated at 1.75. Her BNP is also elevated at 11,300. Chest x-ray shows perihilar consolidation on my informal interpretation. Radiology reports possible consolidation versus vascular congestion. CT head without any acute intracranial maladies. CT abdomen and pelvis with normal-appearing liver with no intra or extrahepatic biliary ductal dilatation. She does have infiltrative changes around the common bile duct. Given patient's symptoms and lab findings I did order for ceftriaxone and azithromycin to initiate treatment of presumed pneumonia infection which could be driving patient's new onset A-fib. I did speak with Dr. Faust and cardiology and he recommended giving patient a 25 mg oral dose of metoprolol and anticoagulation with apixaban. On reassessment patient mary hemodynamically stable and in no acute distress. She is mentating appropriately however remains ill-appearing. I discussed ED workup and results with patient/granddaughter at bedside as well as plan to admit. They were agreeable to plan. I did consult with hospital medicine and discussed management and they have agreed to evaluate and admit to their service. Critical Care Critical Care Time Critical Care Time: No
[2023-12-24 22:13] LABS: NT Pro Brain Natriuretic Pep. 11300 pg/mL (0-450)
[2023-12-24 22:13] LABS: VBG Base Excess -4.7 mmol/L (-2.4-2.3); VBG Oxygen Saturation 74.4 % (50-70); VBG PCO2 39.8 mmol/L (35-51); VBG PH 7.34 mmol/L (7.31-7.41); VBG Total CO2 22.3 mmol/L (23-27)
[2023-12-24 22:21] LABS: Microscopic, Urine URINE MICROSCOPIC (MICROSCOPIC)
[2023-12-24 22:24] LABS: Appearance,Urine CLEAR (Clear); Blood, Urine TRACE-I (Negative); Color,Urine YELLOW (Yellow); Glucose,Urine (UA) Negative (Negative); Ketones,Urine Negative (Negative); Leukocyte Esterase,Urine Negative (Negative); Nitrate,Urine Negative (Negative); Protein,Urine Negative (Negative); Specific Gravity, Urine >= 1.030 (1.005-1.030)
[2023-12-24 22:27] LABS: Bilirubin,Urine Negative (Negative)
--- NOTE | 2023-12-24 22:27 | PC.NURSE ---
pt to radiology at this time
[2023-12-24] MEDS: IOPAMIDOL-370 (76%);100ML BOTTLE 70 ML IV (22:34)
[2023-12-24] MEDS: 0.9 % SODIUM CHLORIDE 50 ML VIAL IV (22:34)
[2023-12-24] MEDS: SODIUM CHLORIDE 0.9% 10ML SYR (RAD ONLY) 10 ML IV (22:34)
[2023-12-24 22:35] LABS: Bacteria,Urine 1+ /lpf; Mucus,Urine 1+ /lpf; RBC,Urine Occasional #/hpf (0-3)
--- NOTE | 2023-12-24 22:43 | ECG_ITS ---
APPROVED REPORT Exam: Resting ECG HR:80 bpm ECG Measurements Heart Rate 80 AXES ID 139 P -31 QRSd 153 QRS 23 QT 469 T 165 QTc 505 Conclusion SINUS RHYTHM WITH SINUS ARRHYTHMIA LEFT BUNDLE BRANCH BLOCK [120+ ms QRS DURATION, 80+ ms Q/S IN V1/V2, 85+ ms R IN I/aVL/V5/V6] ABNORMAL ECG UNCONFIRMED REPORT Electronically signed by : JESSICA ELLSWORTH, 12/25/2023 00:31:24
[2023-12-24] MEDS: FUROSEMIDE 40MG/4ML VIAL 40 MG IV (22:56)
[2023-12-24] MEDS: CEFTRIAXONE SODIUM 2 GM in 0.9 % SODIUM CHLORIDE 100 ML IV (22:56)
[2023-12-24 22:59] LABS: Prothrombin Time 15.2 seconds (10.1-12.5)
[2023-12-24] MEDS: METOPROLOL TARTRATE 50MG TABLET 25 MG PO (23:03)
[2023-12-24 23:16] LABS: Anion Gap 12.2 mEq/L (5-15)
--- NOTE | 2023-12-24 23:20 | ECG_ITS ---
APPROVED REPORT Exam: Resting ECG HR:105 bpm ECG Measurements Heart Rate 105 AXES QRSd 153 QRS 21 QT 357 T 187 QTc 418 Conclusion ATRIAL FIBRILLATION WITH RAPID VENTRICULAR RESPONSE LEFT BUNDLE BRANCH BLOCK [120+ ms QRS DURATION, 80+ ms Q/S IN V1/V2, 85+ ms R IN I/aVL/V5/V6] ABNORMAL ECG Electronically signed by : KENYA ALEXANDRE, 12/26/2023 06:43:11
[2023-12-25] VITALS (12 sets, daily range): BP systolic 111–133; BP diastolic 49–67; PULSE 60–77; RESP 16–30; TEMP 36–37.1; O2SAT 92–96; BMI 29.2; BMI 29.1
--- NOTE | 2023-12-25 00:31 | ECG_ITS ---
APPROVED REPORT Exam: Resting ECG HR:73 bpm ECG Measurements Heart Rate 73 AXES AL 161 P 42 QRSd 156 QRS 17 QT 498 T 178 QTc 524 Conclusion SINUS RHYTHM WITH FREQUENT SUPRAVENTRICULAR PREMATURE COMPLEXES LEFT BUNDLE BRANCH BLOCK [120+ ms QRS DURATION, 80+ ms Q/S IN V1/V2, 85+ ms R IN I/aVL/V5/V6] ABNORMAL ECG Electronically signed by : KENYA ALEXANDRE, 12/26/2023 06:44:31
--- NOTE | 2023-12-25 00:32 | PC.NURSE ---
0030 Received phone report from Marta RN/ED nurse. Patient is a 83 yo female from [place]. Admission Diagnosis: Elevated Troponon, Elevated BNP, Afib/RVR, Pneumonia, Encephalopathy. May transfer per stretcher.
[2023-12-25] MEDS: AZITHROMYCIN 500 MG in 0.9 % SODIUM CHLORIDE 250 ML 250 MG IV ×2 (00:35→20:43)
--- NOTE | 2023-12-25 00:43 | PC.NURSE ---
Report given to Bran Arreola RN
--- NOTE | 2023-12-25 00:49 | PC.NURSE ---
pt arrived to floor via stretcher @00:49
--- NOTE | 2023-12-25 01:02 | PC.NURSE ---
pATIENT ARRIVED AT 0049 PER STRETCHER. aDMITTED TO ROOM 205.
[2023-12-25 01:44] LABS: Reflex Lactic Add Lactic Reflex
--- NOTE | 2023-12-25 01:53 | PC.NURSE ---
uNABLE TO COMPLETE ADMISSION PATIENT UNABLE TO GIVE HISTORY ETC... NO FAMILY PRESENT. PATIENT IS FROM [facility]. ATTEMPTING TO GET RECORDS FAXED TO US. GRAND DAUGHTER BROUGHT PATIENT TO HOSPITAL WITH NO RECORDS.
[2023-12-25 02:02] LABS: Lactic Acid Follow Up (RFLX 1) 2.5 mmol/L (0.7-2.1)
[2023-12-25 02:36] LABS: Troponin I 1.71 ng/ml (0.00-0.034)
--- NOTE | 2023-12-25 02:39 | PC.NURSE ---
primary nurse not available at this time - charge nurse took critical lab, trop + and called Sinan BARILLAS. left primary nurse a note at her pod.
--- NOTE | 2023-12-25 03:08 | ECG_ITS ---
APPROVED REPORT Exam: Resting ECG HR:68 bpm ECG Measurements Heart Rate 68 AXES IA 155 P -11 QRSd 166 QRS -2 QT 503 T 172 QTc 521 Conclusion SINUS RHYTHM WITH OCCASIONAL SUPRAVENTRICULAR PREMATURE COMPLEXES LEFT BUNDLE BRANCH BLOCK [120+ ms QRS DURATION, 80+ ms Q/S IN V1/V2, 85+ ms R IN I/aVL/V5/V6] ABNORMAL ECG UNCONFIRMED REPORT Electronically signed by : Stephan Tello MD 12/25/2023 08:46:53
--- NOTE | 2023-12-25 03:38 | EXP.HP ---
History of Present Illness *Admission Date: 12/24/23 *Reason for visit:: Altered mental status elevated liver function atrial fib *History of present illness: This long-term care patient I have seen in the emergency room with her granddaughter says that she began to start feeling bad approximately 2 weeks ago and that she now has an altered mental status he has normal dementia but normally much more with it.. Noting it off and on again A-thaddeus is being admitted to the emergency room. Noting extremely elevated liver function test with some questionable gallbladder duct changes on CT of the abdomen. Also elevated troponin and [facility] Dis[facility]: The information contained in this section may have been updated after the patient was seen, as this information can be updated by other users. 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 Smoking Status: Unknown if ever smoked second hand exposure: No alcohol intake: never current occupational status: other Travel in the last 8 weeks: None household members: family housing: house current occupational exposures/hazards: No caffeine: No Review of Systems Review of Systems Review of systems:: unable to obtain Review of systems (narrative): Patient has confusion granddaughter was able to give some information Constitutional Constitutional: Reports as per HPI Eyes Eyes: Reports system reviewed and no additional complaints, except as documented ENT Ears, Nose, Mouth, and Throat: Reports system reviewed and no additional complaints, except as documented *Cardiovascular Cardiovascular: Reports system reviewed and no additional complaints, except as documented *Respiratory Respiratory: Reports system reviewed and no additional complaints, except as documented Comments: Patient examined she has oxygen on a rapid respiration rate *Gastrointestinal Gastrointestinal: Reports system reviewed and no additional complaints, except as documented *Genitourinary Comments: Chandler catheter placed in the emergency room *Musculoskeletal Musculoskeletal: Reports abnormal gait Comments: Patient is bedbound Integumentary/Breasts Skin/Breast: Reports as per HPI *Neurologic Neurologic: Reports abnormal gait, Reports behavioral changes, Reports confusion and Reports localized weakness Psychiatric Psychiatric: Reports behavioral changes and Reports confusion Comments: Known to have mild dementia but has progressively worsened in the last 2 weeks Endocrine Endocrine: Reports system reviewed and no additional complaints, except as documented Hematologic/Lymphatic Hematologic/Lymphatic: Reports system reviewed and no additional complaints, except as documented Allergic/Immunologic Allergic/Immunologic: Reports system reviewed and no additional complaints, except as documented Meds Home Medications and Allergies Home Medications ?Medication ?Instructions ?Recorded ?Confirmed ?Type aspirin 81 mg tablet,delayed 81 mg PO DAILY 02/25/18 12/25/23 History release (Adult Low Dose Aspirin) cholecalciferol (vitamin D3) 125 5,000 unit PO DAILY 02/25/18 12/25/23 History mcg (5,000 unit) capsule gabapentin 300 mg capsule 300 mg PO TID 02/25/18 12/25/23 History lovastatin 40 mg tablet 40 mg PO HS 02/25/18 12/25/23 History memantine 10 mg tablet 10 mg PO BID 02/25/18 12/25/23 History verapamil 240 mg 24 hr 240 mg PO DAILY 02/25/18 12/25/23 History capsule,extended release furosemide 20 mg tablet 20 mg PO DAILY 06/12/20 12/25/23 History omeprazole 20 mg capsule,delayed 20 mg PO HS 06/27/23 12/25/23 History release potassium chloride 10 mEq 10 meq PO DAILY 06/27/23 12/25/23 History capsule,extended release ferrous sulfate 325 mg (65 mg 325 mg PO DAILY 12/25/23 12/25/23 History iron) tablet (FeroSul) New Prescriptions to Start Prescriptions: Allergies Allergy/AdvReac Type Severity Reaction Status Date / Time Penicillins [PENICILLINS] Allergy Unknown I-RASH Verified 12/25/23 01:25 Sulfa (Sulfonamide Allergy Unknown I-RASH Verified 12/25/23 01:25 Antibiotics) [SULFA (SULFONAMIDE ANTIBIOTICS)] Exam Data for Last 24 hours Vital signs and Labs for Last 24 Hours: Temp Pulse Resp BP Pulse Ox O2 Del Method O2 Flow Rate 98.1 F 76 30 H 116/61 96 Nasal Cannula 2 12/25/23 00:44 12/25/23 02:21 12/25/23 01:31 12/25/23 00:44 12/25/23 01:31 12/25/23 03:00 12/25/23 03:00 Laboratory Results - last 24 hr 12/24/23 20:47: WBC 10.9 H, RBC 4.40, Hgb 14.5, Hct 46.1, MCV 104.9 H, MCH 33.0 H, MCHC 31.5 L, RDW 13.6, Plt Count 279, MPV 10.2, Neut % (Auto) 76.0, Lymph % (Auto) 15.4, [place] % (Auto) 7.2, Eos % (Auto) 0.7, Baso % (Auto) 0.7, Neut # (Auto) 8.3 H, Lymph # (Auto) 1.7, [place] # (Auto) 0.8, Eos # (Auto) 0.1, Baso # (Auto) 0.1, PT 15.2 H, INR 1.40 H, Sodium 140, Potassium 4.2, Chloride 106, Carbon Dioxide 26, Anion Gap 12.2, BUN 35 H, Creatinine 0.90, Estimated Creat Clear 55, Estimated GFR 60, Est GFR ( Amer) 72, Glucose 159 H, Calcium 9.3, Magnesium 2.2, Total Bilirubin 1.1, AST 544 H*, ALT 321 H*, Alkaline Phosphatase 93, Troponin I 1.75 H, NT-Pro-B Natriuret Pep 66397 H, Total Protein 7.0, Albumin 4.3, Globulin 2.7, Albumin/Globulin Ratio 1.6, Lipase 74 12/24/23 20:57: SARS-CoV-2 (PCR) Not detected, Influenza A Untype (PCR) Not detected, Influenza Type B (PCR) Not detected 12/24/23 20:59: VBG pH 7.34, VBG pCO2 39.8, VBG pO2 45.0 H, VBG HCO3 21.0 L, VBG Total CO2 22.3 L, VBG O2 Saturation 74.4 H, VBG Base Excess -4.7 L, VBG Lactic Acid 4.0 H 12/24/23 22:00: Urine Color Yellow, Urine Appearance Clear, Urine pH 6.0, Ur Specific [place] >= 1.030, Urine Protein Negative, Urine Glucose (UA) Negative, Urine Ketones Negative, Urine Blood Trace-i, Urine Nitrate Negative, Urine Bilirubin Negative, Urine Urobilinogen 1.0, Ur Leukocyte Esterase Negative, Urine RBC Occasional, Urine WBC 3-5, Ur Squamous Epith Cells 3-5, Urine Bacteria 1+, Hyaline Casts 10-20, Urine Mucus 1+ 12/25/23 00:52: Lactate 2.5 H 12/25/23 00:54: Troponin I 1.71 H I & O for Last 24 hours: Intake & Output 12/22/23 12/23/23 12/24/23/06/24 23:59 23:59 23:59 23:59 Output Total 750 / 750 Balance -750 / -750 Weight 81.647 kg Radiology Reports for the Last 24 Hours: Radiology reports shows some inflammation around the bile duct in the liver Constitutional Constitutional: mild distress and thin Comments: Long-term skilled nursing patient *Routine HEENT Exam Head: Present normocephalic and atraumatic Eye: Present EOMI and PERRL ENT: Present mucous membranes moist *Routine Neck Exam Neck: Present supple and full ROM Routine Chest/Breast/Axilla Exam Comments: No tenderness of the chest wall was found on exam *Routine Respiratory Exam Respiratory: Present accessory muscle use Comments: Patient respiratory rate almost 30. She is on nasal cannula but lungs were clear throughout auscultation *Routine Cardiovascular Exam Cardiovascular: Present RRR Comments: Patient has been going from A-fib back to normal saline per EKG. Noted at this time she has a regular rate and rhythm she is perfusing all distal extremities well with brisk capillary refill in all nailbeds *Routine Abdominal Exam Abdominal: Present soft and tenderness Comments: A generalized tenderness through both upper quad but no guarding *Routine Rectal Exam Rectal:: deferred *Routine Genitalia Exam Genitalia:: deferred H&P: Result Impressions 1. Altered mental status 2. Generalized decline in mentation over 2 weeks 3. Elevated liver function test 4. Intermittent atrial fibs going back to normal rhythm Imaging and Cardiology CT scan - abdomen: Status: image reviewed by me Additional comments: Some abnormal stranding around the bile duct Assessment and Plan *Assessment and plan (1) Elevated troponin: Status: Acute Category: Medical Code(s): R79.89 - Other specified abnormal findings of blood chemistry (2) Atrial fibrillation with RVR: Status: Acute Category: Medical Code(s): I48.91 - Unspecified atrial fibrillation (3) Generalized weakness: Status: Acute Category: Medical Code(s): R53.1 - Weakness (4) Shortness of breath: Status: Acute Category: Medical Code(s): R06.02 - Shortness of breath (5) Arthritis: Status: Acute Category: Medical Code(s): M19.90 - Unspecified osteoarthritis, unspecified site Plan 1. For altered mental status, will continue to stabilize electrolytes give her fluids as her urine is concentrated she now has a Chandler cath in 2. Elevated liver function, will repeat labs in the a.m. 3. Atrial fibs intermittent, cardiac consult Dr. Faust
--- NOTE | 2023-12-25 03:38 | PC.NURSE ---
called mick tobin @01:30 for medication history, faxed a request form.
--- NOTE | 2023-12-25 03:39 | PC.NURSE ---
called mick tobin @3:30 to follow up about fax request, they stated they do not have any information on patient other then code status, due to patient being in independent living care. Notified Akua SCHRADER
--- NOTE | 2023-12-25 03:41 | CA_ITS ---
APPROVED REPORT EXAM: Comprehensive 2D, Doppler, and color-flow Echocardiogram Director Biomedical Engineering: LISSETTE Anders, RVS Ht: 5 ft 2 in Wt: 180lbs BSA: 1.83 BP: 116/61 mmHg Indications: AMS, Pneumonia,Afib, Encepholapthy, HTN, SOB, Elevated troponin Echo Enhancing Agent Indication: Rule out thrombus Agent(s) / Amount(s) Used: Definity 2 cc 2D Dimensions IVSd 0.96 cm LVEF (Visual) 26.80 % PWd 0.57 cm LA Volume 85.10 mL LVDd 5.27 cm LA Volume Index [id number] mL/m2 (M/F) 16-34 LVDs 4.66 cm EF AP4 23.00 % Aortic Root 2.67 cm GL Strain -8.3 % Left Atrium 4.55 cm RVID Base (AP4) 3.21 cm (M/F) 2.5-4.1 LVOT 2.00 cm (M/F) 1.5-2.5 M-Mode Dimensions LVDd 5.27 cm (3.5-5.7) Ao Diam 3.27 cm (2.0-3.7) LVDs 4.66 cm (3.5-5.7) IVSd 0.96 cm (0.6-1.1) PWd 0.57 cm (0.6-1.1) EPSs 2.54 cm FS 12.60% TAPSE 1.83 (<1.7) LV Diastology E Decel Time 200 (160-240 msec) E/A Ratio 1.00 MED E' 2.4 (>= 7 cm/sec) MED A' 5.20 cm/s E'/MED E' Ratio 44.79 (<= 14) LAT E' 8.6 (>= 10 cm/sec) LAT A' 6.30 cm/s E/LAT E' Ratio 12.50 (<= 14) Aortic Valve LVOT Max 74.0 (70-110 cm/s) DIANA Index 0.81 cm2/m2 LVOT VTI 11.94 cm AoV Peak Alvaro. 117.0 (50-130 cm/s) AI PHT 379.00 ms AO Peak GR. 5.40 mmHg AO Mean GR. 2.60 (<5 mmHg) AO VTI 25.2 (18-25 cm) DIANA (VTI) 1.49 (2.5-4.5 cm2) Mitral Valve MV E Max Alvaro. 107.0 (40-130 cm/s) MV A Velocity 107.0 (40-130 cm/s) E/A Ratio 1.00 MV Decel. Time 200 (160-240 ms) MV Mean Gr. 2.20 (<2mmHg) Pulmonary Valve WI End VMAX 161.0 cm/s Tricuspid Valve TR P. Velocity 382.00 cm/s RAP Estimate 10.00 mmHg RVSP 68.30 mmHg Left Ventricle The left ventricle is normal size. Left ventricular systolic function is severely decreased. There is increased LV wall thickness. There is akinesis of the septal, inferoseptal, and anteroseptal LV ovalle. Grade 2 diastolic dysfunction is present. LVEF is 20-25%. Right Ventricle The right ventricle is mildly dilated. The right ventricular systolic function is normal. Atria Left atrium is moderately dilated. Right atrium is mildly dilated. There is no Doppler evidence of interatrial shunt. Aortic Valve The aortic valve is mildly thickened. There is no aortic valvular stenosis. Mild to moderate aortic regurgitation. Mitral Valve The mitral valve leaflets are mildly thickened. No evidence of mitral valve stenosis. Moderate to severe mitral regurgitation is present. Tricuspid Valve The tricuspid valve leaflets are thin and pliable. Moderate tricuspid regurgitation. RVSP is 44 mmHg plus RA pressure. Pulmonic Valve The pulmonary valve is normal in structure. Mild pulmonic regurgitation. Great Vessels The aortic root is normal in size. The ascending aorta is not well-visualized. The IVC is not well-visualized. Pericardium There is no pericardial effusion. Other Information Study Quality: Fair Conclusion Severe reduction in LV systolic function (LVEF 20-25%). Grade 2 diastolic dysfunction. Mild RV dilation with normal RV function. Biatrial dilation. Mild to moderate AI. Moderate to severe MR. Moderate TR. Mild PI. Electronically signed by : Oralia Rodriguez MD 12/26/2023 00:48:40
[2023-12-25 03:47] LABS: Reflex Lactic (2 hrs) Add Lactic Reflex
[2023-12-25 04:13] LABS: Troponin I 1.62 ng/ml (0.00-0.034)
[2023-12-25] MEDS: 0.9 % SODIUM CHLORIDE 1000ML 1,000 ML 50 ML IV ×2 (05:49→21:53)
[2023-12-25 05:55] LABS: Basophils # 0.1 K/mm3 (0-0.2); Basophils % 0.5 % (0.1-2.0); Eosinophils # 0.1 K/mm3 (0.0-0.4); Eosinophils % 0.7 % (0.1-12.0); Hematocrit 42.7 % (37.0-47.0); Lymphocytes # 1.6 K/mm3 (0.7-4.5); Lymphocytes % 16.2 % (10-50); Mean Corpuscular HGB Conc 30.6 g/dL (31.8-35.4); Mean Corpuscular Hemoglobin 32.1 pg (27.0-31.2); Mean Corpuscular Volume 105.2 fl (81-99); Mean Platelet Volume 9.6 fl (7.4-10.4); Monocytes % 9.7 % (1.7-9.3); Neutrophils # 7.3 K/mm3 (1.8-7.8); Neutrophils % 72.8 % (37.0-80.0); Platelet Count 225 K/mm3 (142-424); Red Blood Count 4.05 M/mm3 (4.20-5.40); Red Cell Distribution Width 13.6 % (11.5-17.5)
[2023-12-25 06:16] LABS: Lactic Acid Follow up (RFLX 2) 1.7 mmol/L (0.7-2.1)
[2023-12-25 06:19] LABS: Alanine Aminotransferase 422 U/L (12-78); Albumin Level 3.4 g/dl (3.5-5.0); Albumin/Globulin Ratio 1.3 (1.1-1.8); Alkaline Phosphatase 73 U/L (38-126); Anion Gap 7.6 mEq/L (5-15); Aspartate Amino Transferase 599 U/L (14-36); Bilirubin,Total 0.6 mg/dl (0.2-1.3); Blood Urea Nitrogen 31 mg/dl (7-17); Calcium 8.6 mg/dl (8.4-10.2); Carbon Dioxide 34 mmol/L (22.0-30.0); Chloride 106 mmol/L (98-107); Creatinine Clearance Estimated 48 mL/min (50-200); Estimated Glomerular Filt Rate 53 ml/min (>60); GFR (African American) 64 ML/MIN (>60); Gamma Glutamyl Transpeptidase 77 U/L (12-43); Globulin 2.7 g/dL (1.3-3.2); Glucose 123 mg/dl (74-100); Lipase 68 U/L (23-300); Magnesium 2.1 mg/dl (1.6-2.3); Potassium 3.6 mmoL/L (3.5-5.1); Sodium 144 mmol/L (136-145); Total Protein,Serum 6.1 g/dl (6.3-8.2)
--- NOTE | 2023-12-25 08:28 | SW/DCPLANNER ---
Addendum entered by Reba Parker 12/29/23 11:29: [facility] level of care and will discharge today. Addendum entered by Reba Parker 12/29/23 09:08: Yaneli hernandez/ [facility] stated that she can accept this patient pending precert. Precert will be started this AM. I will update patient, family and MD. Addendum entered by Reba Bamberg 12/28/23 11:48: Per [facility] this patient is not able to return to [facility] due to the need for a LTC [facility]ST[facility] pending bed. PT/OT evaluated patient and stated that patient will need SNF level of care. I spoke w/ patient's daughter in room this AM (Mary [phone]). Mary is interested in [facility] (currently no senior care beds available) or [facility]. Patient information has been faxed to Yaneli hernandez/ [facility]. I have also informed daughter to consider the following facilities if [facility] is not able to accept patient: [place], [facility], [facility], [facility], [facility] or [facility]. Original Note: Patient currently resides at [facility]. I will continue to follow up w/ rachael and [facility] during hospital admission. Discharge date is unknown at this time.
--- NOTE | 2023-12-25 08:39 | HMH.PHAINT1 ---
Pharmacy Intervention Comments: HOME MEDICATION LIST VERIFIED USING LIST FROM OUTPATIENT PHARMACY AND FAMILY [facility]ERS INTERVIEW
[2023-12-25] MEDS: ENOXAPARIN 40MG/0.4ML SYRINGE 40 MG SQ (10:22)
--- NOTE | 2023-12-25 12:45 | CT_ITS ---
FINAL REPORT TECHNIQUE: Thin section axial CT with IV contrast supplemented with multiplanar reconstruction under CT angiogram protocol. 3-D reconstructions were performed. This study was performed with techniques to keep radiation doses as low as reasonably achievable (ALARA). Individualized dose reduction techniques using automated exposure control or adjustment of mA and/or kV according to the patient''s size were employed. CLINICAL HISTORY: r/o CVA FINDINGS: No aneurysm is seen. Major intracranial vessels are patent without significant stenosis. IMPRESSION: No significant stenosis or occlusion. Reviewed, Interpreted and Dictated by Barron Carrasco III, MD Transcribed by Becky Pelaez Authenticated and [facility]
--- NOTE | 2023-12-25 12:45 | CT_ITS ---
FINAL REPORT CLINICAL HISTORY: r/o CVA FINDINGS: CTA NECK Thin section axial CT with contrast with multiplanar reconstruction NASCET criteria and technique was utilized during interpretation. There are bilateral pulmonary opacities which represent edema or pneumonia Aortic arch: Arch shows no significant narrowing. Great vessel origins are widely patent . Right carotid: No significant stenosis is seen of the cervical common or internal carotid artery . Left carotid: No significant stenosis is seen of the cervical common or internal carotid artery . Mild calcified plaque is seen at the carotid bulbs. Vertebrals: Left vertebral artery is dominant. No significant stenosis is present . IMPRESSION: No significant stenosis or occlusion. Bilateral pulmonary opacities which may represent edema or pneumonia Reviewed, Interpreted and Dictated by Barron Carrasco III, MD Transcribed by Becky Pelaez Authenticated and [facility]
--- NOTE | 2023-12-25 12:57 | EXP.CARD.CON ---
History of Present Illness History of Present Illness Consult date: 12/25/23 Requesting physician: Deng Mejia Consult reason: congestive heart failure Chief complaint: Altered mental status and tachycardia History of present illness: 83-year-old white female without known cardiovascular disease transported from custodial for altered mental status tachycardia and low blood pressure. Patient has severe dementia and history is obtained from chart and her granddaughter who is bedside. Apparently dementia has been worsening recently and patient is also had worsening weakness and episodes of tachycardia with low blood pressure. In the emergency room she was found to be in new to onset A-fib RVR-heart rate 140s. She has 2+ pitting edema lactate of 4 transaminitis, troponin 1.75, proBNP 11,000, chest x-ray with perihilar consolidation versus vascular congestion, hypoxia requiring 2.5 L/min O2 by nasal cannula. She was admitted overnight started on Eliquis and metoprolol. This morning she is sinus rhythm and resting comfortably with stable vital signs. Preliminary echo shows EF 30% which is a new diagnosis for her. [facility] Disclaimer: The information contained in this section may have been updated after the patient was seen, as this information can be updated by other users. 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 Smoking Status: Unknown if ever smoked second hand exposure: No alcohol intake: never current occupational status: other Travel in the last 8 weeks: None household members: family housing: house current occupational exposures/hazards: No caffeine: No Review of Systems Review of Systems Review of systems:: unable to obtain Exam Data for Last 24 hours Vital signs and Labs for Last 24 Hours: Temp Pulse Resp BP Pulse Ox O2 Del Method O2 Flow Rate 98.1 F 62 17 124/67 96 Nasal Cannula 2 12/25/23 11:28 12/25/23 11:28 12/25/23 11:28 12/25/23 11:28 12/25/23 11:28 12/25/23 11:28 12/25/23 11:28 Laboratory Results - last 24 hr 12/24/23 20:47: WBC 10.9 H, RBC 4.40, Hgb 14.5, Hct 46.1, MCV 104.9 H, MCH 33.0 H, MCHC 31.5 L, RDW 13.6, Plt Count 279, MPV 10.2, Neut % (Auto) 76.0, Lymph % (Auto) 15.4, [place] % (Auto) 7.2, Eos % (Auto) 0.7, Baso % (Auto) 0.7, Neut # (Auto) 8.3 H, Lymph # (Auto) 1.7, [place] # (Auto) 0.8, Eos # (Auto) 0.1, Baso # (Auto) 0.1, PT 15.2 H, INR 1.40 H, Sodium 140, Potassium 4.2, Chloride 106, Carbon Dioxide 26, Anion Gap 12.2, BUN 35 H, Creatinine 0.90, Estimated Creat Clear 55, Estimated GFR 60, Est GFR ( Amer) 72, Glucose 159 H, Calcium 9.3, Magnesium 2.2, Total Bilirubin 1.1, AST 544 H*, ALT 321 H*, Alkaline Phosphatase 93, Troponin I 1.75 H, NT-Pro-B Natriuret Pep 90707 H, Total Protein 7.0, Albumin 4.3, Globulin 2.7, Albumin/Globulin Ratio 1.6, Lipase 74 12/24/23 20:57: SARS-CoV-2 (PCR) Not detected, Influenza A Untype (PCR) Not detected, Influenza Type B (PCR) Not detected 12/24/23 20:59: VBG pH 7.34, VBG pCO2 39.8, VBG pO2 45.0 H, VBG HCO3 21.0 L, VBG Total CO2 22.3 L, VBG O2 Saturation 74.4 H, VBG Base Excess -4.7 L, VBG Lactic Acid 4.0 H 12/24/23 22:00: Urine Color Yellow, Urine Appearance Clear, Urine pH 6.0, Ur Specific [place] >= 1.030, Urine Protein Negative, Urine Glucose (UA) Negative, Urine Ketones Negative, Urine Blood Trace-i, Urine Nitrate Negative, Urine Bilirubin Negative, Urine Urobilinogen 1.0, Ur Leukocyte Esterase Negative, Urine RBC Occasional, Urine WBC 3-5, Ur Squamous Epith Cells 3-5, Urine Bacteria 1+, Hyaline Casts 10-20, Urine Mucus 1+ 12/25/23 00:52: Lactate 2.5 H 12/25/23 00:54: Troponin I 1.71 H 12/25/23 03:15: Troponin I 1.62 H 12/25/23 05:25: WBC 10.0, RBC 4.05 L, Hgb 13.0 D, Hct 42.7, MCV 105.2 H, MCH 32.1 H, MCHC 30.6 L, RDW 13.6, Plt Count 225, MPV 9.6, Neut % (Auto) 72.8, Lymph % (Auto) 16.2, [place] % (Auto) 9.7 H, Eos % (Auto) 0.7, Baso % (Auto) 0.5, Neut # (Auto) 7.3, Lymph # (Auto) 1.6, [place] # (Auto) 1.0, Eos # (Auto) 0.1, Baso # (Auto) 0.1, Sodium 144, Potassium 3.6, Chloride 106, Carbon Dioxide 34 H, Anion Gap 7.6, BUN 31 H, Creatinine 1.00, Estimated Creat Clear 48, Estimated GFR 53 L, Est GFR ( Amer) 64, Glucose 123 H D, Lactate 1.7, Calcium 8.6, Magnesium 2.1, Total Bilirubin 0.6, GGT 77 H, AST 599 H*, ALT 422 H*, Alkaline Phosphatase 73, Total Protein 6.1 L, Albumin 3.4 L D, Globulin 2.7, Albumin/Globulin Ratio 1.3, Lipase 68 I & O for Last 24 hours: Intake & Output 12/22/23 12/23/23 12/24/23 12/25/23 23:59 23:59 23:59 23:59 Intake Total 0 / 0 Output Total 1475 / 1475 Balance -1475 / -1475 Weight 180 lb 158 lb 9.6 oz Constitutional Constitutional: no acute distress and obtunded *Routine HEENT Exam Eye: Present PERRL *Routine Respiratory Exam Respiratory: Present CTA bilaterally; Absent accessory muscle use, wheezes or crackles *Routine Cardiovascular Exam Cardiovascular: Present RRR, Normal S1 and Normal S2; Absent murmur, gallop or rubs *Routine Abdominal Exam Abdominal: Present soft; Absent tenderness *Routine Extremities Exam Extremities: Present pulses intact; Absent cyanosis or edema *Routine Skin Exam Skin: Present intact; Absent erythema or wounds *Routine Neurological Exam Neurological: Absent alert Routine Psychiatric Exam Psychiatric: Present cooperative Meds Home Medications and Allergies Home Medications ?Medication ?Instructions ?Recorded ?Confirmed ?Type aspirin 81 mg tablet,delayed 81 mg PO DAILY 02/25/18 12/25/23 History release (Adult Low Dose Aspirin) cholecalciferol (vitamin D3) 125 5,000 unit PO DAILY 02/25/18 12/25/23 History mcg (5,000 unit) capsule gabapentin 300 mg capsule 300 mg PO TID 02/25/18 12/25/23 History lovastatin 40 mg tablet 40 mg PO HS 02/25/18 12/25/23 History memantine 10 mg tablet 10 mg PO BID 02/25/18 12/25/23 History verapamil 240 mg 24 hr 240 mg PO DAILY 02/25/18 12/25/23 History capsule,extended release furosemide 20 mg tablet 20 mg PO DAILY 06/12/20 12/25/23 History omeprazole 20 mg capsule,delayed 20 mg PO HS 06/27/23 12/25/23 History release potassium chloride 10 mEq 10 meq PO DAILY 06/27/23 12/25/23 History capsule,extended release ferrous sulfate 325 mg (65 mg 325 mg PO DAILY 12/25/23 12/25/23 History iron) tablet (FeroSul) New Prescriptions to Start Prescriptions: Allergies Allergy/AdvReac Type Severity Reaction Status Date / Time Penicillins [PENICILLINS] Allergy Unknown I-RASH Verified 12/25/23 01:25 Sulfa (Sulfonamide Allergy Unknown I-RASH Verified 12/25/23 01:25 Antibiotics) [SULFA (SULFONAMIDE ANTIBIOTICS)] Assessment and Plan *Assessment and plan (1) Acute left systolic heart failure: Status: Acute Category: Medical Code(s): I50.21 - Acute systolic (congestive) heart failure (2) Atrial fibrillation with RVR: Status: Acute Category: Medical Code(s): I48.91 - Unspecified atrial fibrillation (3) Transaminitis: Status: Acute Category: Medical Code(s): R74.01 - Elevation of levels of liver transaminase levels (4) Generalized weakness: Status: Acute Category: Medical Code(s): R53.1 - Weakness Plan Acute left systolic heart failure -New diagnosis this admission with proBNP 11,000, vascular congestion on chest x-ray, weakness and shortness of breath -New diagnosis A-fib RVR -New diagnosis EF 30 -BP low, will hold on Entresto -She has diuresed 1.5 L since admission -Try Jardiance, watch for yeast infection -Add Toprol as she also has A-fib and needs rate control -Not a candidate for a heart cath due to advanced dementia A-fib RVR -New diagnosis this admit -Spontaneous conversion to sinus rhythm with rate control -Add Toprol-XL 25, monitor blood pressure -Add Eliquis 5 mg twice daily, monitor for bleeding Transaminitis -Possibly from CHF -Further GI workup in process by primary service Lactic acidosis -Resolved Acute hypoxic respiratory failure -Likely from his CHF, infectious process workup also in place
[2023-12-25] MEDS: 0.9 % SODIUM CHLORIDE 50 ML VIAL IV (14:04)
[2023-12-25] MEDS: SODIUM CHLORIDE 0.9% 10ML SYR (RAD ONLY) 10 ML IV (14:04)
[2023-12-25] MEDS: IOPAMIDOL-370 (76%);100ML BOTTLE 80 ML IV (14:04)
[2023-12-25] MEDS: EMPAGLIFLOZIN 10MG TABLET 10 MG PO (14:34)
[2023-12-25] MEDS: METOPROLOL SUCCINATE XL 25MG TABLET 25 MG PO (14:34)
[2023-12-25 14:40] LABS: NT Pro Brain Natriuretic Pep. 7170 pg/mL (0-450)
--- NOTE | 2023-12-25 15:07 | P.PN_ITS ---
Subjective *Date: 12/25/23 *Time: 15:18 Interval history: Patient interviewed with granddaughter in law present in room. Patient transferred [facility] last night due to hypotension, tachycardia, and headache. Patient unreliable historian but granddaughter in law very up-to-date on patient's medical care and history. States patient uses wheelchair at baseline but she can walk a couple steps. Also states the patient developed increased work of breathing in [facility] last night, and patient currently on 2.5 L nasal cannula at time of evaluation by Dr. Mejia in emergency room. Patient also has bilateral cochlear implants with questionable MRI compatibility Medical Exam Vital signs and Labs for Last 24 Hours: Vital Signs Temp Pulse Pulse Resp BP BP Pulse Ox 12/25/23 11:28 98.1 F 62 17 124/67 96 12/25/23 11:00 12/25/23 09:00 12/25/23 08:00 70 12/25/23 08:00 12/25/23 08:00 98.3 F 64 16 111/55 L 96 12/25/23 06:36 12/25/23 05:00 12/25/23 04:00 96.8 F L 62 16 133/62 94 L 12/25/23 04:00 60 12/25/23 03:00 12/25/23 02:21 76 12/25/23 01:36 76 12/25/23 01:31 30 H 96 12/25/23 01:00 12/25/23 00:44 98.1 F 77 30 H 116/61 12/24/23 23:30 114 H 29 H 108/63 L 96 12/24/23 22:59 77 21 122/57 L 91 L 12/24/23 22:41 81 19 107/60 L 94 L 12/24/23 21:59 120 H 116/81 98 12/24/23 21:39 27 H 103/70 L 95 12/24/23 21:36 129 H 24 103/77 L 92 L 12/24/23 21:31 128 H 23 101/76 L 94 L 12/24/23 21:29 125 H 26 H 110/80 94 L 12/24/23 21:27 138 H 24 122/70 96 12/24/23 21:22 140 H 25 H 117/80 95 12/24/23 20:26 98.1 F 134 H 23 132/68 94 L O2 Del Method O2 Flow Rate 12/25/23 11:28 Nasal Cannula 2 12/25/23 11:00 Nasal Cannula 2 12/25/23 09:00 Nasal Cannula 2 12/25/23 08:00 12/25/23 08:00 Nasal Cannula 2 12/25/23 08:00 Nasal Cannula 2.5 12/25/23 06:36 Nasal Cannula 2 12/25/23 05:00 Nasal Cannula 2 12/25/23 04:00 Nasal Cannula 2 12/25/23 04:00 12/25/23 03:00 Nasal Cannula 2 12/25/23 02:21 12/25/23 01:36 12/25/23 01:31 Nasal Cannula 2 12/25/23 01:00 Nasal Cannula 2 12/25/23 00:44 Nasal Cannula 2 12/24/23 23:30 12/24/23 22:59 12/24/23 22:41 12/24/23 21:59 Nasal Cannula 2 12/24/23 21:39 Nasal Cannula 2 12/24/23 21:36 Nasal Cannula 2 12/24/23 21:31 Nasal Cannula 2 12/24/23 21:29 Nasal Cannula 2 12/24/23 21:27 Nasal Cannula 2 12/24/23 21:22 Nasal Cannula 2 12/24/23 20:26 Room Air Intake and Output 12/24/23 12/25/23 12/25/23 23:59 07:59 15:59 Intake Total 240 / 240 Output Total 750 / 1475 725 / 1475 Balance -750 / -1235 -485 / -1235 Intake: Intake, Oral Amount 240 / 240 Output: Output, Urine Amount 750 / 1475 725 / 1475 Other: Number of Unmeasured Voids 0 Weight 81.647 kg 71.94 kg 71.9 kg Patient Weight 12/25/23 23:59 Weight 71.9 kg Laboratory Results - last 24 hr 12/24/23 20:47: WBC 10.9 H, RBC 4.40, Hgb 14.5, Hct 46.1, MCV 104.9 H, MCH 33.0 H, MCHC 31.5 L, RDW 13.6, Plt Count 279, MPV 10.2, Neut % (Auto) 76.0, Lymph % (Auto) 15.4, [place] % (Auto) 7.2, Eos % (Auto) 0.7, Baso % (Auto) 0.7, Neut # (Auto) 8.3 H, Lymph # (Auto) 1.7, [place] # (Auto) 0.8, Eos # (Auto) 0.1, Baso # (Auto) 0.1, PT 15.2 H, INR 1.40 H, Sodium 140, Potassium 4.2, Chloride 106, Carbon Dioxide 26, Anion Gap 12.2, BUN 35 H, Creatinine 0.90, Estimated Creat Clear 55, Estimated GFR 60, Est GFR ( Amer) 72, Glucose 159 H, Calcium 9.3, Magnesium 2.2, Total Bilirubin 1.1, AST 544 H*, ALT 321 H*, Alkaline Phosphatase 93, Troponin I 1.75 H, NT-Pro-B Natriuret Pep 91958 H, Total Protein 7.0, Albumin 4.3, Globulin 2.7, Albumin/Globulin Ratio 1.6, Lipase 74 12/24/23 20:57: SARS-CoV-2 (PCR) Not detected, Influenza A Untype (PCR) Not detected, Influenza Type B (PCR) Not detected 12/24/23 20:59: VBG pH 7.34, VBG pCO2 39.8, VBG pO2 45.0 H, VBG HCO3 21.0 L, VBG Total CO2 22.3 L, VBG O2 Saturation 74.4 H, VBG Base Excess -4.7 L, VBG Lactic Acid 4.0 H 12/24/23 22:00: Urine Color Yellow, Urine Appearance Clear, Urine pH 6.0, Ur Specific [place] >= 1.030, Urine Protein Negative, Urine Glucose (UA) Negative, Urine Ketones Negative, Urine Blood Trace-i, Urine Nitrate Negative, Urine Bilirubin Negative, Urine Urobilinogen 1.0, Ur Leukocyte Esterase Negative, Urine RBC Occasional, Urine WBC 3-5, Ur Squamous Epith Cells 3-5, Urine Bacteria 1+, Hyaline Casts 10-20, Urine Mucus 1+ 12/25/23 00:52: Lactate 2.5 H 12/25/23 00:54: Troponin I 1.71 H 12/25/23 03:15: Troponin I 1.62 H 12/25/23 05:25: WBC 10.0, RBC 4.05 L, Hgb 13.0 D, Hct 42.7, MCV 105.2 H, MCH 32.1 H, MCHC 30.6 L, RDW 13.6, Plt Count 225, MPV 9.6, Neut % (Auto) 72.8, Lymph % (Auto) 16.2, [place] % (Auto) 9.7 H, Eos % (Auto) 0.7, Baso % (Auto) 0.5, Neut # (Auto) 7.3, Lymph # (Auto) 1.6, [place] # (Auto) 1.0, Eos # (Auto) 0.1, Baso # (Auto) 0.1, Sodium 144, Potassium 3.6, Chloride 106, Carbon Dioxide 34 H, Anion Gap 7.6, BUN 31 H, Creatinine 1.00, Estimated Creat Clear 48, Estimated GFR 53 L , Est GFR ( Amer) 64, Glucose 123 H D, Lactate 1.7, Calcium 8.6, Magnesium 2.1, Total Bilirubin 0.6, GGT 77 H, AST 599 H*, ALT 422 H*, Alkaline Phosphatase 73, Total Protein 6.1 L, Albumin 3.4 L D, Globulin 2.7, Albumin/Globulin Ratio 1.3, Lipase 68 12/25/23 13:25: NT-Pro-B Natriuret Pep 7170 H I & O for Labs for Last 24 Hours: Intake & Output 12/22/23 12/23/23 12/24/23 12/25/23 23:59 23:59 23:59 23:59 Intake Total 240 / 240 Output Total 1475 / 1475 Balance -1235 / -1235 Weight 81.647 kg 71.9 kg Radiology Reports for the Last 24 Hours: 12/25/2023 CTA head: IMPRESSION: IMPRESSION: No significant stenosis or occlusion. 12/25/2023 CTA neck: Result pending 12/25/2023 echocardiogram: EF 30% with final result pending 12/24/2023 CT abdomen/pelvis: IMPRESSION: 1. No free air or fluid or adenopathy. 2. The liver appears normal. 3. No intra or extrahepatic biliary ductal dilatation. 4. Infiltrative changes seen around the expected location of the common bile duct image 3/40-43 and coronal image 4/47. The etiology is uncertain. MRCP may be helpful. 5. Nonspecific bowel gas pattern. 6. The right colon is difficult to evaluate likely due to collapsed bowel which is difficult to evaluate and gives the appearance of apparent mucosal thickening image 3/64 and coronal image 4/50. Repeat study with oral contrast may be helpful. 12/25/2023 CTA chest IMPRESSION: 1. No central or large peripheral pulmonary emboli. 2. There is moderate dilation of the ascending aorta. Ascending aorta measures 3.5 cm. 3. Mild cardiomegaly. 4. Low lung volumes. 5. Small effusions. 6. Ground-glass opacities in the perihilar region. Probable venous congestion. 12/24/2023 CT head IMPRESSION: 1. No evidence for intracranial hemorrhage, mass lesions or acute stroke. 2. Intracranial vascular calcifications. 3. Mild generalized atrophy. 4. Moderate small vessel ischemic change in the periventricular white matter. 5. Moderate ventricular prominence. 6. Crystal artifact from bilateral cochlear implants with prior mastoidectomies. 7. Crystal artifact from the external portion of the cochlear implants. 8. Bilateral cataract extractions. 12/24/23 CXR IMPRESSION: 1. Mild cardiomegaly. 2. Mild indistinctness of the pulmonary vessels. Venous congestion versus perihilar atelectasis. 3. Low lung volumes. 4. Patchy opacification retrocardiac left lower lobe. Atelectasis or consolidation left lower lobe. Constitutional: Present disheveled and somnolent Head: Present atraumatic and normal inspection ENT: Present normal exam and mucous membranes moist Neck: Present normal inspection Respiratory: Present decreased breath sounds and diminished air movement Cardiac: Present Irregularly Regular and Tachycardia GI: Present soft; Absent guarding or rebound Rectal (female): Present deferred (female): Present deferred Extremities: Present normal inspection and full ROM Skin: Present intact and dry Assessment and Plan *Assessment and plan (1) Acute left systolic heart failure: Status: Acute Category: Medical Code(s): I50.21 - Acute systolic (congestive) heart failure (2) Elevated troponin: Status: Acute Category: Medical Code(s): R79.89 - Other specified abnormal findings of blood chemistry (3) Atrial fibrillation with RVR: Status: Acute Category: Medical Code(s): I48.91 - Unspecified atrial fibrillation (4) Generalized weakness: Status: Acute Category: Medical Code(s): R53.1 - Weakness Plan 83-year-old female with past medical history significant for HTN, dementia, on Lasix, HLD, GERD, and atrial fibrillation. [place] [facility] [place] Patient reportedly developed increased work of breathing, hypotension, increased weakness, tachycardia, and headache with new oxygen requirement yesterday. Patient found to be in A-fib with RVR at time of presentation to hospital. Echocardiogram today shows ejection fraction 30%, and patient diagnosed with acute congestive heart failure. Problems as listed below. Acute CHF: ? Cautious diuresis. Appreciate cardiology assistance! Echocardiogram 12/24 shows ejection fraction 30%. Start Jardiance, Toprol. Fluid restriction 1.5 L/day. Wean from oxygen as tolerated. A-fib with RVR: ? Placed on Toprol. Also place patient on Eliquis. Cardiology following. Will titrate medications to retrieve rate control. Altered mental status likely secondary to acute CHF A-fib with RVR: ? Cardiac most likely etiology of metabolic encephalopathy, but will rule out stroke and TIA. CT brain within normal limits done in emergency room 12/23. CTA head/neck done today with results pending. Unable to perform MRI given patient has bilateral cochlear implants. Rule out pneumonia: ? Chest x-ray and CTA chest findings seem more indicative of pulmonary vascular congestion and heart failure versus pneumonia. Patient currently on IV azithromycin/Rocephin. Check procalcitonin. If procalcitonin within normal limits, will likely discontinue IV antibiotics. Check influenza/COVID rapid panel. Unable to do full respiratory panel due to lack of reagents and laboratory at this time. Bilateral maxillary rosacea: ? Patient noted to have mary rash on her cheek. Rash does not appear drug erythema related. Possibly rosacea. Patient denies pain, and rash nonfluctuant. Will continue to monitor rash during hospitalization but no current intervention required. Dementia: Continue home management Hypertension: Continue home management GERD: Continue home management PPx: Eliquis CODE STATUS full FEN: Cardiac diet Disposition: ? Patient will need to remain in house for acute CHF care until heart failure issues resolved. Likely patient remain in house for an additional 2 to 3 days. Receiving heart failure management. Case discussed with patient, patient's granddaughter in law, case management, nursing staff, dietary, and pharmacy by Dr. Mejia during interdisciplinary treatment rounds 12/25/2023.
[2023-12-25 16:19] LABS: Procalcitonin 0.137 ng/mL (0.0-2.0)
[2023-12-25] MEDS: FERROUS SULFATE 325MG TABLET 325 MG PO (16:54)
[2023-12-25] MEDS: ASPIRIN EC 81MG TABLET 81 MG PO (16:54)
[2023-12-25] MEDS: VERAPAMIL SR 120MG TABLET 240 MG PO (16:55)
[2023-12-25] MEDS: FUROSEMIDE 40MG/4ML VIAL 40 MG IV (16:55)
[2023-12-25] MEDS: CEFTRIAXONE SODIUM 2 GM in 0.9 % SODIUM CHLORIDE 100 ML IV (16:56)
[2023-12-25] MEDS: SODIUM CHLORIDE 3% 15ML NEB 3 ML IH (18:45)
[2023-12-25] MEDS: IPRATROPIUM/ALBUTEROL 3 ML NEB IH (18:45)
[2023-12-25] MEDS: PRAVASTATIN 40MG TAB 40 MG PO (20:44)
[2023-12-25] MEDS: GABAPENTIN 300MG CAPSULE 300 MG PO (20:44)
[2023-12-25] MEDS: MEMANTINE 10MG TABLET 10 MG PO (20:44)
[2023-12-25] MEDS: PANTOPRAZOLE 40MG TABLET 40 MG PO (20:44)
[2023-12-26] VITALS (9 sets, daily range): BP systolic 99–137; BP diastolic 56–72; PULSE 60–110; RESP 14–18; TEMP 36–36.8; O2SAT 90–98; BMI 29.1
[2023-12-26] MEDS: IPRATROPIUM/ALBUTEROL 3 ML NEB IH ×2 (06:10→18:36)
[2023-12-26 07:47] LABS: Basophils # 0.1 K/mm3 (0-0.2); Basophils % 0.4 % (0.1-2.0); Eosinophils # 0.3 K/mm3 (0.0-0.4); Eosinophils % 2.5 % (0.1-12.0); Hematocrit 41.1 % (37.0-47.0); Hemoglobin 12.6 g/dL (12.2-16.2); Lymphocytes # 1.4 K/mm3 (0.7-4.5); Lymphocytes % 12.8 % (10-50); Mean Corpuscular HGB Conc 30.6 g/dL (31.8-35.4); Mean Corpuscular Hemoglobin 32.2 pg (27.0-31.2); Mean Corpuscular Volume 105.2 fl (81-99); Mean Platelet Volume 9.7 fl (7.4-10.4); Monocytes % 8.9 % (1.7-9.3); Neutrophils # 8.1 K/mm3 (1.8-7.8); Neutrophils % 75.3 % (37.0-80.0); Platelet Count 218 K/mm3 (142-424); Red Cell Distribution Width 13.7 % (11.5-17.5); White Blood Count 10.7 K/mm3 (4.8-10.8)
[2023-12-26 07:59] LABS: Alanine Aminotransferase 331 U/L (12-78); Albumin Level 3.2 g/dl (3.5-5.0); Albumin/Globulin Ratio 1.2 (1.1-1.8); Alkaline Phosphatase 80 U/L (38-126); Aspartate Amino Transferase 247 U/L (14-36); Bilirubin,Total 0.5 mg/dl (0.2-1.3); Blood Urea Nitrogen 27 mg/dl (7-17); Calcium 8.4 mg/dl (8.4-10.2); Carbon Dioxide 31 mmol/L (22.0-30.0); Chloride 108 mmol/L (98-107); Creatinine Clearance Estimated 48 mL/min (50-200); Estimated Glomerular Filt Rate 69 ml/min (>60); GFR (African American) 83 ML/MIN (>60); Globulin 2.7 g/dL (1.3-3.2); Glucose 119 mg/dl (74-100); Sodium 144 mmol/L (136-145); Total Protein,Serum 5.9 g/dl (6.3-8.2)
[2023-12-26] MEDS: ASPIRIN EC 81MG TABLET 81 MG PO (08:15)
[2023-12-26] MEDS: CHOLECALCIFEROL 1,000 UNITS (25MCG) TABLET 125 MCG PO (08:15)
[2023-12-26] MEDS: EMPAGLIFLOZIN 10MG TABLET 10 MG PO (08:16)
[2023-12-26] MEDS: FERROUS SULFATE 325MG TABLET 325 MG PO (08:16)
[2023-12-26] MEDS: ENOXAPARIN 40MG/0.4ML SYRINGE 40 MG SQ (08:16)
[2023-12-26] MEDS: GABAPENTIN 300MG CAPSULE 300 MG PO ×2 (08:16→20:26)
[2023-12-26] MEDS: FUROSEMIDE 40MG/4ML VIAL 40 MG IV (08:16)
[2023-12-26] MEDS: METOPROLOL SUCCINATE XL 25MG TABLET 25 MG PO (08:17)
[2023-12-26] MEDS: MEMANTINE 10MG TABLET 10 MG PO ×2 (08:17→20:26)
[2023-12-26] MEDS: VERAPAMIL SR 120MG TABLET 240 MG PO (08:35)
--- NOTE | 2023-12-26 14:01 | EXP.PN ---
Subjective *Date: 12/26/23 *Time: 14:01 Interval history: The patient is seen and examined today. No family is at bedside. Nursing staff report that she remains afebrile with stable heart rates and some low blood pressures. She is saturating appropriately on 2 L of oxygen via nasal cannula. Her morning CBC identifies an MCV of 105 with normal white blood cell count hemoglobin and platelet count. Her liver enzymes identified downward trend. Exam Data for Last 24 hours Vital signs and Labs for Last 24 Hours: Temp Pulse Resp BP Pulse Ox O2 Del Method O2 Flow Rate 97.6 F 60 16 118/60 98 Nasal Cannula 2 12/26/23 08:00 12/26/23 12:00 12/26/23 08:00 12/26/23 08:00 12/26/23 08:00 12/26/23 13:00 12/26/23 13:00 Laboratory Results - last 24 hr 12/25/23 13:25: NT-Pro-B Natriuret Pep 7170 H, Procalcitonin 0.137 12/26/23 06:00: Sodium 144, Potassium 3.0 L, Chloride 108 H, Carbon Dioxide 31 H, Anion Gap 8.0, BUN 27 H, Creatinine 0.80, Estimated Creat Clear 48, Estimated GFR 69, Est GFR ( Amer) 83 D, Glucose 119 H, Calcium 8.4, Magnesium 2.0, Total Bilirubin 0.5, AST 247 H D, ALT 331 H*, Alkaline Phosphatase 80, Total Protein 5.9 L, Albumin 3.2 L, Globulin 2.7, Albumin/Globulin Ratio 1.2 12/26/23 06:29: WBC 10.7, RBC 3.90 L, Hgb 12.6, Hct 41.1, MCV 105.2 H, MCH 32.2 H, MCHC 30.6 L, RDW 13.7, Plt Count 218, MPV 9.7, Neut % (Auto) 75.3, Lymph % (Auto) 12.8, [place] % (Auto) 8.9, Eos % (Auto) 2.5, Baso % (Auto) 0.4, Neut # (Auto) 8.1 H, Lymph # (Auto) 1.4, [place] # (Auto) 1.0, Eos # (Auto) 0.3, Baso # (Auto) 0.1 I & O for Last 24 hours: Intake & Output 12/23/23 12/24/23 12/25/23 12/26/23 23:59 23:59 23:59 23:59 Intake Total 480 / 1070 790 / 790 Output Total 2575 / 2575 400 / 400 Balance -2095 / -1505 390 / 390 Weight 81.647 kg 71.9 kg 71.9 kg Constitutional Constitutional: no acute distress, chronically ill appearing and cooperative *Routine HEENT Exam Head: Present normocephalic Eye: Present EOMI and PERRL ENT: Present mucous membranes moist *Routine Neck Exam Neck: Absent JVD or lymphadenopathy *Routine Respiratory Exam Respiratory: Present crackles, normal respiratory effort and symmetric chest movement *Routine Cardiovascular Exam Cardiovascular: Present RRR and murmur *Routine Abdominal Exam Abdominal: Present soft and normoactive bowel sounds; Absent tenderness *Routine Extremities Exam Extremities: Present edema *Routine Skin Exam Skin: Present warm *Routine Neurological Exam Neurological: Present alert, moving all extremities, vision grossly intact and hearing grossly intact Routine Psychiatric Exam Psychiatric: Present cooperative Assessment and Plan *Assessment and plan (1) Acute HFrEF (heart failure with reduced ejection fraction): Status: Acute Category: Medical Code(s): I50.21 - Acute systolic (congestive) heart failure (2) Myocardial injury: Status: Acute Category: Medical Code(s): I5A - Non-ischemic myocardial injury (non-traumatic) (3) Atrial fibrillation with RVR: Status: Acute Category: Medical Code(s): I48.91 - Unspecified atrial fibrillation (4) Transaminitis: Status: Acute Category: Medical Code(s): R74.01 - Elevation of levels of liver transaminase levels (5) Dementia: Status: Acute Category: Medical Code(s): F03.90 - Unspecified dementia, unspecified severity, without behavioral disturbance, psychotic disturbance, mood disturbance, and anxiety Plan This is an 83-year-old female with chronic dementia who resides in long-term care and presented to the ED for weakness and mental status change from baseline. Problems addressed as follows: Myocardial injury type II Atrial fibrillation with RVR Acute HFrEF (stage C/NYHA IV) Telemetry monitoring Cardiology consultation [id number] ED troponin trend noted ECG with A-fib with RVR rate 105 Echo: EF 25%, G2 DD, severe MR, AR, TR, RVSP 44 mmHg Antiplatelet therapy with aspirin 81 mg daily Statin therapy Beta-jeancarlos therapy Calcium channel jeancarlos therapy Loop diuretic therapy SGLT2 inhibitor therapy ARNI therapy precluded by low blood pressures Aldosterone antagonist therapy Anticoagulation with Eliquis 5 mg twice daily Trending electrolytes, magnesium and creatinine Acute hypoxic respiratory failure Pulse oximetry monitoring Oxygen therapy to maintain appropriate oxygen saturations Currently requiring 2 L CTA chest: No PE, groundglass opacities perihilar region, no infiltrates, no consolidations Lavonne/Brielle inhalation therapy Trending labs and inflammatory markers Dementia Routine nursing interaction Namenda therapy Fall precautions Long-term care resident Case management consult for discharge planning The patient is hospitalized day 1 with above diagnoses complicated by her advanced age and memory impairment. We appreciate customer experience consultant evaluation and recommendations. Case management is assisting with discharge planning including transportation needs back to long-term care. Barriers to discharge currently include assessing stability of cardiac rhythm, diuresing and assessing oxygen requirements. Expected day of discharge over the next day or 2.
[2023-12-26] MEDS: BUMETANIDE 1 MG TABLET PO (16:30)
[2023-12-26] MEDS: POTASSIUM CHLORIDE 20MEQ TAB 40 MEQ PO (20:26)
[2023-12-26] MEDS: PRAVASTATIN 40MG TAB 40 MG PO (20:26)
[2023-12-26] MEDS: PANTOPRAZOLE 40MG TABLET 40 MG PO (20:26)
[2023-12-27] VITALS (9 sets, daily range): BP systolic 120–137; BP diastolic 56–74; PULSE 60–117; RESP 16–18; TEMP 36.4–37; O2SAT 89–97; BMI 30.4
[2023-12-27] MEDS: IPRATROPIUM/ALBUTEROL 3 ML NEB IH ×2 (06:32→18:33)
[2023-12-27 07:55] LABS: Basophils # 0.1 K/mm3 (0-0.2); Basophils % 0.4 % (0.1-2.0); Eosinophils # 0.2 K/mm3 (0.0-0.4); Eosinophils % 1.9 % (0.1-12.0); Hematocrit 41.6 % (37.0-47.0); Hemoglobin 12.7 g/dL (12.2-16.2); Lymphocytes # 1.2 K/mm3 (0.7-4.5); Mean Corpuscular HGB Conc 30.4 g/dL (31.8-35.4); Mean Corpuscular Hemoglobin 31.9 pg (27.0-31.2); Mean Corpuscular Volume 104.8 fl (81-99); Mean Platelet Volume 10.2 fl (7.4-10.4); Monocytes % 9.4 % (1.7-9.3); Neutrophils # 8.5 K/mm3 (1.8-7.8); Neutrophils % 77.2 % (37.0-80.0); Platelet Count 219 K/mm3 (142-424); Red Blood Count 3.97 M/mm3 (4.20-5.40); Red Cell Distribution Width 13.9 % (11.5-17.5); White Blood Count 10.9 K/mm3 (4.8-10.8)
[2023-12-27 08:00] LABS: Alanine Aminotransferase 264 U/L (12-78); Albumin Level 3.3 g/dl (3.5-5.0); Albumin/Globulin Ratio 1.3 (1.1-1.8); Alkaline Phosphatase 82 U/L (38-126); Anion Gap 6.3 mEq/L (5-15); Aspartate Amino Transferase 127 U/L (14-36); Bilirubin,Total 0.7 mg/dl (0.2-1.3); Blood Urea Nitrogen 22 mg/dl (7-17); Calcium 8.6 mg/dl (8.4-10.2); Carbon Dioxide 33 mmol/L (22.0-30.0); Chloride 106 mmol/L (98-107); Creatinine Clearance Estimated 51 mL/min (50-200); Estimated Glomerular Filt Rate 80 ml/min (>60); GFR (African American) 97 ML/MIN (>60); Globulin 2.6 g/dL (1.3-3.2); Glucose 118 mg/dl (74-100); Potassium 3.3 mmoL/L (3.5-5.1); Sodium 142 mmol/L (136-145); Total Protein,Serum 5.9 g/dl (6.3-8.2)
--- NOTE | 2023-12-27 08:58 | P.PN_ITS ---
Subjective *Date: 12/27/23 *Time: 12:59 Interval history: The patient is seen and examined at bedside today. I am accompanied by her nurse Kwabena today. No family is at bedside. Nursing staff report that she remains afebrile with stable vital signs and saturating appropriate on 2 L of oxygen via nasal cannula. Her morning labs have been reviewed and discussed including a CBC that is stable with a WBC 10.9, hemoglobin 12.7 and normal platelets. Her electrolytes identified normal sodium with potassium 3.3 with ongoing replacement. Her BUN is 22 and creatinine 0.7. Her LFTs are downward trending. The patient reports improvement. Exam Data for Last 24 hours Vital signs and Labs for Last 24 Hours: Temp Pulse Resp BP Pulse Ox O2 Del Method O2 Flow Rate 97.9 F 104 H 16 124/74 97 Nasal Cannula 2 12/27/23 08:00 12/27/23 08:00 12/27/23 08:00 12/27/23 08:00 12/27/23 08:00 12/27/23 08:00 12/27/23 08:00 Laboratory Results - last 24 hr 12/27/23 07:15: WBC 10.9 H, RBC 3.97 L, Hgb 12.7, Hct 41.6, MCV 104.8 H, MCH 31.9 H, MCHC 30.4 L, RDW 13.9, Plt Count 219, MPV 10.2, Neut % (Auto) 77.2, Lymph % (Auto) 11.0, [place] % (Auto) 9.4 H, Eos % (Auto) 1.9, Baso % (Auto) 0.4, Neut # (Auto) 8.5 H, Lymph # (Auto) 1.2, [place] # (Auto) 1.0, Eos # (Auto) 0.2, Baso # (Auto) 0.1, Sodium 142, Potassium 3.3 L, Chloride 106, Carbon Dioxide 33 H, Anion Gap 6.3, BUN 22 H, Creatinine 0.70, Estimated Creat Clear 51, Estimated GFR 80, Est GFR ( Amer) 97, Glucose 118 H, Calcium 8.6, Magnesium 2.0, Total Bilirubin 0.7, AST 127 H D, ALT 264 H, Alkaline Phosphatase 82, Total Protein 5.9 L, Albumin 3.3 L, Globulin 2.6, Albumin/Globulin Ratio 1.3 I & O for Last 24 hours: Intake & Output 12/24/23 12/25/23 12/26/23 12/27/23 23:59 23:59 23:59 23:59 Intake Total 480 / 1070 1210 / 1450 240 / 240 Output Total 2575 / 2575 1125 / 1125 1150 / 1150 Balance -2095 / -1505 85 / 325 -910 / -910 Weight 81.647 kg 71.9 kg 71.9 kg 75.16 kg Microbiology Reports for the Last 24 Hours: Microbiology 12/25/23 16:18 Blood Blood Culture - Preliminary NO GROWTH AFTER 24 HOURS 12/25/23 16:27 Blood Blood Culture - Preliminary NO GROWTH AFTER 24 HOURS Constitutional Constitutional: no acute distress, chronically ill appearing and cooperative *Routine HEENT Exam Head: Present normocephalic Eye: Present EOMI and PERRL ENT: Present mucous membranes moist *Routine Neck Exam Neck: Absent JVD or lymphadenopathy *Routine Respiratory Exam Respiratory: Present rhonchi, normal respiratory effort and symmetric chest move ment *Routine Cardiovascular Exam Cardiovascular: Present RRR and murmur *Routine Abdominal Exam Abdominal: Present soft and normoactive bowel sounds; Absent tenderness *Routine Extremities Exam Extremities: Present edema *Routine Skin Exam Skin: Present warm *Routine Neurological Exam Neurological: Present alert, moving all extremities, vision grossly intact and hearing grossly intact Routine Psychiatric Exam Psychiatric: Present cooperative Assessment and Plan *Assessment and plan (1) Acute HFrEF (heart failure with reduced ejection fraction): Status: Acute Category: Medical Code(s): I50.21 - Acute systolic (congestive) heart failure (2) Myocardial injury: Status: Acute Category: Medical Code(s): I5A - Non-ischemic myocardial injury (non-traumatic) (3) Atrial fibrillation with RVR: Status: Acute Category: Medical Code(s): I48.91 - Unspecified atrial fibrillation (4) Transaminitis: Status: Acute Category: Medical Code(s): R74.01 - Elevation of levels of liver transaminase levels (5) Dementia: Status: Acute Category: Medical Code(s): F03.90 - Unspecified dementia, unspecified severity, without behavioral disturbance, psychotic disturbance, mood disturbance, and anxiety Plan This is an 83-year-old female with chronic dementia who resides in long-term care and presented to the ED for weakness and mental status change from baseline. Problems addressed as follows: Myocardial injury type II Atrial fibrillation with RVR Acute HFrEF (stage C/NYHA IV) Telemetry monitoring Cardiology consultation [id number] ED troponin trend noted ECG with A-fib with RVR rate 105 Echo: EF 25%, G2 DD, severe MR, AR, TR, RVSP 44 mmHg Antiplatelet therapy with aspirin 81 mg daily Statin therapy Beta-jeancarlos therapy Calcium channel jeancarlos therapy Loop diuretic therapy SGLT2 inhibitor therapy ARNI therapy precluded by low blood pressures Aldosterone antagonist therapy Anticoagulation with Eliquis 5 mg twice daily Trending electrolytes, magnesium and creatinine Acute hypoxic respiratory failure Pulse oximetry monitoring Oxygen therapy to maintain appropriate oxygen saturations Currently requiring 2 L CTA chest: No PE, groundglass opacities perihilar region, no infiltrates, no consolidations Lavonne/Brielle inhalation therapy Trending labs and inflammatory markers Ambulatory oxygen evaluation for discharge planning Dementia Routine nursing interaction Namenda therapy Fall precautions PT/OT evaluation for discharge planning Long-term care resident Case management consult for discharge planning The patient is hospitalized day 2 with above diagnoses complicated by her advanced age and memory impairment. We appreciate pre owned sales consultant evaluation and recommendations. Case management is assisting with discharge planning including transportation needs back to long-term care. Barriers to discharge currently include assessing stability of cardiac rhythm, diuresing and assessing oxygen requirements. Expected day of discharge over the next day or 2.
[2023-12-27] MEDS: GABAPENTIN 300MG CAPSULE 300 MG PO ×2 (09:36→20:08)
[2023-12-27] MEDS: CHOLECALCIFEROL 1,000 UNITS (25MCG) TABLET 125 MCG PO (09:36)
[2023-12-27] MEDS: VERAPAMIL SR 120MG TABLET 240 MG PO (09:37)
[2023-12-27] MEDS: ASPIRIN EC 81MG TABLET 81 MG PO (09:37)
[2023-12-27] MEDS: SPIRONOLACTONE 25MG TABLET 12.5 MG PO (09:37)
[2023-12-27] MEDS: EMPAGLIFLOZIN 10MG TABLET 10 MG PO (09:37)
[2023-12-27] MEDS: FERROUS SULFATE 325MG TABLET 325 MG PO (09:38)
[2023-12-27] MEDS: BUMETANIDE 1 MG TABLET PO ×2 (09:38→16:11)
[2023-12-27] MEDS: METOPROLOL SUCCINATE XL 25MG TABLET 25 MG PO (09:38)
[2023-12-27] MEDS: MEMANTINE 10MG TABLET 10 MG PO ×2 (09:38→20:08)
[2023-12-27] MEDS: ENOXAPARIN 40MG/0.4ML SYRINGE 40 MG SQ (09:43)
[2023-12-27 10:25] LABS: HBsAg Screen Negative (Negative); HCV Ab Non Reactive (Non Reactive); Hep A Ab, IGM Negative (Negative); Hep B Core Ab, IgM Negative (Negative)
--- NOTE | 2023-12-27 16:58 | PC.NURSE ---
PATIENT IS ALERT BUT PLEASANTLY CONFUSED. SHE HAS SPENT MOST OF THE DAY UP TO CHAIR AND TOLERATED WELL. STILL REQUIRES 2LNC FOR O2 SUPPORT. ROOM AIR O2 SAT WAS 88% WHILE AT REST. APPETITE HAS BEEN IMPROVED TODAY. [facility] C[facility] REMAINS IN PLACE.
[2023-12-27] MEDS: PANTOPRAZOLE 40MG TABLET 40 MG PO (20:08)
[2023-12-27] MEDS: PRAVASTATIN 40MG TAB 40 MG PO (20:08)
[2023-12-28] VITALS (10 sets, daily range): BP systolic 99–140; BP diastolic 46–78; PULSE 60–107; RESP 16–19; TEMP 36.6–37.3; O2SAT 88–96; BMI 28.0
[2023-12-28] MEDS: IPRATROPIUM/ALBUTEROL 3 ML NEB IH ×2 (06:08→18:58)
[2023-12-28 06:52] LABS: Basophils # 0.1 K/mm3 (0-0.2); Basophils % 0.6 % (0.1-2.0); Eosinophils # 0.4 K/mm3 (0.0-0.4); Eosinophils % 3.3 % (0.1-12.0); Hemoglobin 13.6 g/dL (12.2-16.2); Lymphocytes # 1.2 K/mm3 (0.7-4.5); Lymphocytes % 10.5 % (10-50); Mean Corpuscular HGB Conc 30.3 g/dL (31.8-35.4); Mean Corpuscular Hemoglobin 32.1 pg (27.0-31.2); Mean Corpuscular Volume 105.6 fl (81-99); Mean Platelet Volume 10.3 fl (7.4-10.4); Neutrophils # 8.5 K/mm3 (1.8-7.8); Neutrophils % 76.6 % (37.0-80.0); Platelet Count 204 K/mm3 (142-424); Red Blood Count 4.26 M/mm3 (4.20-5.40); Red Cell Distribution Width 13.8 % (11.5-17.5); White Blood Count 11.1 K/mm3 (4.8-10.8)
[2023-12-28 08:01] LABS: Alanine Aminotransferase 208 U/L (12-78); Albumin Level 3.6 g/dl (3.5-5.0); Albumin/Globulin Ratio 1.3 (1.1-1.8); Alkaline Phosphatase 105 U/L (38-126); Anion Gap 11.9 mEq/L (5-15); Aspartate Amino Transferase 122 U/L (14-36); Bilirubin,Total 1.2 mg/dl (0.2-1.3); Blood Urea Nitrogen 19 mg/dl (7-17); Calcium 8.8 mg/dl (8.4-10.2); Carbon Dioxide 26 mmol/L (22.0-30.0); Chloride 104 mmol/L (98-107); Creatinine Clearance Estimated 47 mL/min (50-200); Estimated Glomerular Filt Rate 95 ml/min (>60); GFR (African American) 116 ML/MIN (>60); Globulin 2.7 g/dL (1.3-3.2); Glucose 98 mg/dl (74-100); Sodium 139 mmol/L (136-145); Total Protein,Serum 6.3 g/dl (6.3-8.2)
[2023-12-28 08:10] LABS: Potassium 2.9 mmoL/L (3.5-5.1)
[2023-12-28 08:17] LABS: Procalcitonin 0.087 ng/mL (0.0-2.0)
[2023-12-28] MEDS: DEFINITY US ECHO CONTRAST 2ML INJ 2 MG IV (08:47)
[2023-12-28] MEDS: GABAPENTIN 300MG CAPSULE 300 MG PO ×3 (09:34→20:04)
[2023-12-28] MEDS: EMPAGLIFLOZIN 10MG TABLET 10 MG PO (09:35)
[2023-12-28] MEDS: FERROUS SULFATE 325MG TABLET 325 MG PO (09:35)
[2023-12-28] MEDS: BUMETANIDE 1 MG TABLET PO ×2 (09:35→16:53)
[2023-12-28] MEDS: ASPIRIN EC 81MG TABLET 81 MG PO (09:35)
[2023-12-28] MEDS: MEMANTINE 10MG TABLET 10 MG PO ×2 (09:35→20:04)
[2023-12-28] MEDS: SPIRONOLACTONE 25MG TABLET 12.5 MG PO (09:35)
[2023-12-28] MEDS: METOPROLOL SUCCINATE XL 25MG TABLET 25 MG PO (09:36)
[2023-12-28] MEDS: ENOXAPARIN 40MG/0.4ML SYRINGE 40 MG SQ (09:36)
[2023-12-28] MEDS: CHOLECALCIFEROL 1,000 UNITS (25MCG) TABLET 125 MCG PO (09:36)
[2023-12-28] MEDS: POTASSIUM CHLORIDE 20MEQ TAB 40 MEQ PO (09:36)
[2023-12-28] MEDS: VERAPAMIL SR 120MG TABLET 240 MG PO (09:36)
[2023-12-28 10:00] LABS: NT Pro Brain Natriuretic Pep. 5430 pg/mL (0-450)
--- NOTE | 2023-12-28 10:55 | EXP.CARD.PN ---
Subjective Subjective Date: 12/28/23 Time: 11:14 Principal diagnosis: Cardiomyopathy, A-fib with RVR, HFrEF Interval history: 83-year-old white female in bed in no acute distress. Family member in room states patient is looking and feeling better. Patient is hard of hearing and has a history of cochlear implants but does not have them activated at this time. Exam Data for Last 24 hours Vital signs and Labs for Last 24 Hours: Temp Pulse Resp BP Pulse Ox O2 Del Method O2 Flow Rate 99.2 F 107 H 18 140/78 91 L Room Air 2 12/28/23 08:00 12/28/23 08:00 12/28/23 08:00 12/28/23 08:00 12/28/23 08:00 12/28/23 08:00 12/28/23 06:24 FiO2 28 12/27/23 18:53 Laboratory Results - last 24 hr 12/28/23 06:15: WBC 11.1 H, RBC 4.26, Hgb 13.6, Hct 45.0, MCV 105.6 H, MCH 32.1 H, MCHC 30.3 L, RDW 13.8, Plt Count 204, MPV 10.3, Neut % (Auto) 76.6, Lymph % (Auto) 10.5, [place] % (Auto) 9.0, Eos % (Auto) 3.3, Baso % (Auto) 0.6, Neut # (Auto) 8.5 H, Lymph # (Auto) 1.2, [place] # (Auto) 1.0, Eos # (Auto) 0.4, Baso # (Auto) 0.1, Sodium 139, Potassium 2.9 L*, Chloride 104, Carbon Dioxide 26, Anion Gap 11.9, BUN 19 H, Creatinine 0.60, Estimated Creat Clear 47, Estimated GFR 95, Est GFR ( Amer) 116, Glucose 98, Calcium 8.8, Magnesium 2.0, Total Bilirubin 1.2, AST 122 H, ALT 208 H, Alkaline Phosphatase 105, NT-Pro-B Natriuret Pep 5430 H, Total Protein 6.3, Albumin 3.6, Globulin 2.7, Albumin/Globulin Ratio 1.3, Procalcitonin 0.087 I & O for Last 24 hours: Intake & Output 12/25/23 12/26/23 12/27/2324 11:59 11:59 11:59 11:59 Intake Total 0 / 0 1270 / 1270 780 / 780 480 / 480 Output Total 1475 / 1475 1500 / 2225 1875 / 1875 2350 / 2350 Balance -1475 / -1475 -230 / -955 -1095 / -1095 -1870 / -1870 Weight 158 lb 9.6 oz 158 lb 8.198 oz 165 lb 11.2 oz 152 lb 11.2 oz Microbiology Reports for the Last 24 Hours: Microbiology 12/25/23 16:27 Blood Blood Culture - Preliminary NO GROWTH AFTER 48 HOURS 12/25/23 16:18 Blood Blood Culture - Preliminary NO GROWTH AFTER 48 HOURS Constitutional Constitutional: no acute distress *Routine Respiratory Exam Respiratory: Present decreased breath sounds and CTA bilaterally; Absent wheezes *Routine Cardiovascular Exam Cardiovascular: Present RRR Progress Note: A&P Assessment and plan (1) Acute HFrEF (heart failure with reduced ejection fraction): Status: Acute (2) Myocardial injury: Status: Acute (3) Atrial fibrillation with RVR: Status: Acute (4) Transaminitis: Status: Acute (5) Dementia: Status: Acute Assessment and Plan Assessment and Plan for All Diagnoses:: Acute left systolic heart failure -New diagnosis this admission with proBNP 11,000, vascular congestion on chest x-ray, weakness and shortness of breath -New diagnosis A-fib RVR -New diagnosis EF 30 -BP improved so we will start Entresto -She has diuresed 4.5 L since admission -Try Jardiance, watch for yeast infection -Add Toprol as she also has A-fib and needs rate control -Stop verapamil due to cardiomyopathy -Not a candidate for a heart cath due to advanced dementia A-fib RVR -New diagnosis this admit -Spontaneous conversion to sinus rhythm with rate control -Add Toprol-XL 25, monitor blood pressure -Add Eliquis 5 mg twice daily, monitor for bleeding Transaminitis -Possibly from CHF -Improving Acute hypoxic respiratory failure -Likely from CHF, infectious process workup also in place -No evidence of pneumonia on chest CTA, 12/24/2023 Hard of hearing -Uses hearing aids/cochlear implants Hypokalemia Adjusting dose of spironolactone and potassium supplementation Awaiting placement at a skilled facility Continue to monitor blood pressure with institution of Entresto Anticipate discharge in the next 1 to 2 days.
--- NOTE | 2023-12-28 11:10 | HMH.PTEV ---
Physical Therapy Evaluation Rehab PT IP Evaluation Start: 12/27/23 13:03 Freq: ONCE Status: Active Protocol: Document 12/28/23 10:51 RACHID (Rec: 12/28/23 11:10 RACHID [id number]) Subjective/History History History This is the initial eval for Melinda Joyner, a 83yof that was admitted to the hospital for pneumonia. The patient is also noted to have a altered mental state at this time. The patient did not note anything of her past medical history, and there is nothing noted in her report from the MD. Subjective Subjective Patient stated that she lives at assisted living in the independent [place]. Patient stated that she would sit up at the EOB but didn't know how she would feel standing. Patient's family stated that she is becoming more dependent on family with ADL's. Patient stated that she does use a walker at this time for ambulation. New diagnosis of cancer in past 12 No months? Rehab PT IP Eval Objective Appearance Patient Behavior Appropriate,Cooperative Patient Orientation Person,Birthday Difficulty following instructions none Speech Pattern Clear,Appropriate Ambulation Patient Able to Ambulate No Balance Ability to Arise Able, uses arms to help Sitting Balance Steady, safe Standing Balance Steady, wide stance Transfers Bed Transfer Ability Minimal x 2 (25% assist) Sit to Stand Bed Transfer Ability Minimal x 2 (25% assist) Rehab PT IP prob,goals,plan Problems Date of Evaluation: 12/28/23 PT IP Problems Bed Mobility,Transfers,Gait, Safety Rehab Potential Rehab Potential Good Equipment Needs Assistive Devices Rolling / Wheeled Walker Plan PT Intervention Plan Bed Mobility,Transfers,Gait, Balance Discharge Goals Bed Transfer Ability Minimal x 1 (25% assist) Sit to Stand Chair Transfer Ability Minimal x 1 (25% assist) Ambulation Assistive Device Rolling Walker Discharge Plan PT Discharge Plan Patient is most appropriate for rehabilitation placement at this time. Patient requires skilled therapy for bed mobility, transfers, and gait training to return patient to their PLOF. Eval Complexity Eval Charge Codes 01373 - High Complexity PHYSICIAN CERTIFICATION: I certify the specified therapy services for Melinda Fuentes are required, authorized, and reviewed every 30 days.
--- NOTE | 2023-12-28 11:11 | HMH.OTEV ---
OT Inpatient Evaluation Rehab OT IP Evaluation Start: 12/27/23 13:03 Freq: ONCE Status: Active Protocol: Document 12/28/23 10:05 PIETERSHAKIRA (Rec: 12/28/23 11:11 HEATHER [id number]) Rehab OT IP Assessment Subjective History This long-term care patient I have seen in the emergency room with her granddaughter says that she began to start feeling bad approximately 2 weeks ago and that she now has an altered mental status he has normal dementia but normally much more with it.. Noting it off and on again A- fib is being admitted to the emergency room. Noting extremely elevated liver function test with some questionable gallbladder duct changes on CT of the abdomen. Also elevated troponin and elevated BNP Patient is a resident at [facility] in the independent living facility. Patient was independently able to propel self in w/c and used a cane/ grab bar for transfers. Patient is needing increase assistance with ADLs in the past few weeks. Subjective I need help standing. Instructed Patient on proper hand and foot placement to complete bed mobility from supine->sit @ EOB->stand requiring Mod A x2. Patient stood <30 secs due to fatigue. Patient required Max A x2 to complete EOB->supine. Objective Patient Orientation Person,Name,Age,Birthday,Year Right Upper Extremity Gross ROM WFL Left Upper Extremity Gross ROM WFL Bed Mobility bed mobility - supine/sit Assist Level Maximum x 2 (75% assist) Transfer Training Sit/Stand Transfer Assist Level Moderate x 2 (50% assist) Rehab OT IP prob,goals,plan Problems Date of Evaluation: 12/28/23 OT IP Problems Bed Mobility,Transfers,Balance ,Self care,Safety Rehab Potential Rehab Potential Good Equipment Needs Assistive Devices Standard Walker Plan OT intervention Plan Bed Mobility,Transfers,Balance ,Self care,Safety,Therapeutic Exercise OT Plan Frequency BID Duration Goals Met Discharge Goals Bed Mobility Ability Assistance x2 Sit to Stand Chair Transfer Ability Moderate x 1 (50% assist) Chair Transfer Ability Moderate x 2 (50% assist) Discharge Plan OT Discharge Plan REcommend patient to return back to [facility] for skilled therapy services. Patient will require 24/ care for ADLs, bed mobility and fx 'l mobility with appropriate AE/devices. Patient is unsafe to return to independent living at this time. Patient to continue skilled OT IP services while here at [facility]. Eval Complexity Eval Charge Codes 08643 - Low Complexity PHYSICIAN CERTIFICATION: I certify the specified therapy services for Melinda Amber- are required, authorized, and reviewed every 30 days.
--- NOTE | 2023-12-28 11:24 | PC.NURSE ---
SHOSHANA PERRY WAS IN ROOM SPEAKING WITH FAMILY AND CAME OUT TO THIS NURSE AND STATED THAT PT APPEARED TO BE SHORT OF BREATH WHILE SHE WAS SITTING UP IN BED AT REST. THIS RN CAME TO BEDSIDE AND CHECKED PT'S OXYGEN SAT AND IT WAS FOUND TO BE 88%. PT WAS PLACED BACK ON 2L O2.
[2023-12-28] MEDS: APIXABAN 5MG TABLET 5 MG PO ×2 (11:53→20:04)
[2023-12-28] MEDS: SACUBITRIL/VALSARTAN 24-26MG TABLET 1 EACH PO ×2 (11:53→20:04)
[2023-12-28] MEDS: ALBUTEROL 0.083% 2.5 MG/3 ML NEB IH (12:25)
--- NOTE | 2023-12-28 17:31 | P.PN_ITS ---
Subjective *Date: 12/28/23 *Time: 17:31 Interval history: The patient is seen and examined at bedside today. The patient is accompanied by her granddaughter in law. Nursing staff report that she remains afebrile with stable vital signs and saturating appropriately on 2 L of oxygen via nasal cannula. Family is inquiring about transitioning care to long-term care. Case management is assisting with discharge needs. Her laboratory studies continue to improve. Her potassium is low this morning and is being replaced. Exam Data for Last 24 hours Vital signs and Labs for Last 24 Hours: Temp Pulse Resp BP Pulse Ox O2 Del Method O2 Flow Rate 98.3 F 60 19 116/61 94 L Nasal Cannula 4 12/28/23 16:00 12/28/23 16:00 12/28/23 16:00 12/28/23 16:00 12/28/23 16:00 12/28/23 16:00 12/28/23 16:00 FiO2 28 12/27/23 18:53 Laboratory Results - last 24 hr 12/28/23 06:15: WBC 11.1 H, RBC 4.26, Hgb 13.6, Hct 45.0, MCV 105.6 H, MCH 32.1 H, MCHC 30.3 L, RDW 13.8, Plt Count 204, MPV 10.3, Neut % (Auto) 76.6, Lymph % (Auto) 10.5, [place] % (Auto) 9.0, Eos % (Auto) 3.3, Baso % (Auto) 0.6, Neut # (Auto) 8.5 H, Lymph # (Auto) 1.2, [place] # (Auto) 1.0, Eos # (Auto) 0.4, Baso # (Auto) 0.1, Sodium 139, Potassium 2.9 L*, Chloride 104, Carbon Dioxide 26, Anion Gap 11.9, BUN 19 H, Creatinine 0.60, Estimated Creat Clear 47, Estimated GFR 95, Est GFR ( Amer) 116, Glucose 98, Calcium 8.8, Magnesium 2.0, Total Bilirubin 1.2, AST 122 H, ALT 208 H, Alkaline Phosphatase 105, NT-Pro-B Natriuret Pep 5430 H, Total Protein 6.3, Albumin 3.6, Globulin 2.7, Albumin/Globulin Ratio 1.3, Procalcitonin 0.087 I & O for Last 24 hours: Intake & Output 12/25/23 12/26/23 12/27/23 12/28/23 23:59 23:59 23:59 23:59 Intake Total 480 / 1070 1210 / 1450 600 / 720 240 / 240 Output Total 2575 / 2575 1125 / 1125 3200 / 3200 1300 / 1300 Balance -2095 / -1505 85 / 325 -2600 / -2480 -1060 / -1060 Weight 71.9 kg 71.9 kg 75.16 kg 69.264 kg Microbiology Reports for the Last 24 Hours: Microbiology 12/25/23 16:27 Blood Blood Culture - Preliminary NO GROWTH AFTER 48 HOURS 12/25/23 16:18 Blood Blood Culture - Preliminary NO GROWTH AFTER 48 HOURS Constitutional Constitutional: no acute distress, chronically ill appearing and cooperative *Routine HEENT Exam Head: Present normocephalic Eye: Present EOMI and PERRL ENT: Present mucous membranes moist *Routine Neck Exam Neck: Absent JVD or lymphadenopathy *Routine Respiratory Exam Respiratory: Present rhonchi, normal respiratory effort and symmetric chest movement *Routine Cardiovascular Exam Cardiovascular: Present RRR and murmur *Routine Abdominal Exam Abdominal: Present soft and normoactive bowel sounds; Absent tenderness *Routine Extremities Exam Extremities: Present edema *Routine Skin Exam Skin: Present warm *Routine Neurological Exam Neurological: Present alert, moving all extremities, vision grossly intact and hearing grossly intact Routine Psychiatric Exam Psychiatric: Present cooperative Assessment and Plan *Assessment and plan (1) Acute HFrEF (heart failure with reduced ejection fraction): Status: Acute Category: Medical Code(s): I50.21 - Acute systolic (congestive) heart failure (2) Myocardial injury: Status: Acute Category: Medical Code(s): I5A - Non-ischemic myocardial injury (non-traumatic) (3) Atrial fibrillation with RVR: Status: Acute Category: Medical Code(s): I48.91 - Unspecified atrial fibrillation (4) Transaminitis: Status: Acute Category: Medical Code(s): R74.01 - Elevation of levels of liver transaminase levels (5) Dementia: Status: Acute Category: Medical Code(s): F03.90 - Unspecified dementia, unspecified severity, without behavioral disturbance, psychotic disturbance, mood disturbance, and anxiety Plan This is an 83-year-old female with chronic dementia who resides in long-term care and presented to the ED for weakness and mental status change from baseline. Problems addressed as follows: Myocardial injury type II Atrial fibrillation with RVR Acute HFrEF (stage C/NYHA IV) Telemetry monitoring Cardiology consultation [id number] ED troponin trend noted ECG with A-fib with RVR rate 105 Echo: EF 25%, G2 DD, severe MR, AR, TR, RVSP 44 mmHg Antiplatelet therapy with aspirin 81 mg daily Statin therapy Beta-jeancarlos therapy Loop diuretic therapy SGLT2 inhibitor therapy ARNI therapy started 12/28/2023 Aldosterone antagonist therapy Anticoagulation with Eliquis 5 mg twice daily Trending electrolytes, magnesium and creatinine Acute hypoxic respiratory failure Pulse oximetry monitoring Oxygen therapy to maintain appropriate oxygen saturations Currently requiring 2 L CTA chest: No PE, groundglass opacities perihilar region, no infiltrates, no consolidations Lavonne/Brielle inhalation therapy Trending labs and inflammatory markers Ambulatory oxygen evaluation for discharge planning Dementia Routine nursing interaction Namenda therapy Fall precautions PT/OT evaluation for discharge planning Long-term care resident Case management consult for discharge planning The patient is hospitalized day 4 with above diagnoses complicated by her advanced age and memory impairment. We appreciate senior environmental consultant evaluation and recommendations. Case management is assisting with discharge planning including identify next site of care. Barriers to discharge currently include identifying facility for transition of care and insurance certification process. Expected day of discharge once facility is identified and insurance certification process is complete.
--- NOTE | 2023-12-28 18:08 | PC.NURSE ---
Pt has done well today. VSS. Pt has had many visitors at bedside today. Chandler remains in place and is draining adequate amounts of tea colored urine. No c/o pain. Pt did c/o shortness of breath early this afternoon. Pt's oxygen was still on her face but it had been turned off on the wall. this rn turned pt's o2 back on to two liters. Pt was eventually titrated up to 4L and had a PRN breathing treatment that helped her shortness of breath. Pt is now on 3L and will continue to titrates as needed.
[2023-12-28] MEDS: PANTOPRAZOLE 40MG TABLET 40 MG PO (20:04)
[2023-12-28] MEDS: PRAVASTATIN 40MG TAB 40 MG PO (20:04)
[2023-12-29] VITALS (11 sets, daily range): BP systolic 95–124; BP diastolic 58–72; PULSE 58–120; RESP 16–21; TEMP 36.4–37.2; O2SAT 92–96; BMI 27.8
[2023-12-29 06:15] LABS: Basophils # 0.1 K/mm3 (0-0.2); Basophils % 0.5 % (0.1-2.0); Eosinophils # 0.4 K/mm3 (0.0-0.4); Eosinophils % 2.9 % (0.1-12.0); Hemoglobin 13.3 g/dL (12.2-16.2); Lymphocytes # 1.2 K/mm3 (0.7-4.5); Lymphocytes % 10.1 % (10-50); Mean Corpuscular HGB Conc 30.3 g/dL (31.8-35.4); Mean Corpuscular Hemoglobin 31.5 pg (27.0-31.2); Mean Corpuscular Volume 103.8 fl (81-99); Mean Platelet Volume 9.6 fl (7.4-10.4); Monocytes # 1.2 K/mm3 (0.1-1.0); Monocytes % 9.8 % (1.7-9.3); Neutrophils # 9.3 K/mm3 (1.8-7.8); Neutrophils % 76.7 % (37.0-80.0); Platelet Count 232 K/mm3 (142-424); Red Blood Count 4.24 M/mm3 (4.20-5.40); Red Cell Distribution Width 13.9 % (11.5-17.5); White Blood Count 12.1 K/mm3 (4.8-10.8)
[2023-12-29 06:22] LABS: Anion Gap 8.7 mEq/L (5-15); Blood Urea Nitrogen 13 mg/dl (7-17); Calcium 8.5 mg/dl (8.4-10.2); Carbon Dioxide 32 mmol/L (22.0-30.0); Chloride 101 mmol/L (98-107); Creatinine Clearance Estimated 46 mL/min (50-200); Estimated Glomerular Filt Rate 95 ml/min (>60); GFR (African American) 116 ML/MIN (>60); Glucose 124 mg/dl (74-100); Sodium 139 mmol/L (136-145)
[2023-12-29 06:25] LABS: Potassium 2.7 mmoL/L (3.5-5.1)
[2023-12-29] MEDS: APIXABAN 5MG TABLET 5 MG PO (08:16)
[2023-12-29] MEDS: SACUBITRIL/VALSARTAN 24-26MG TABLET 1 EACH PO (08:16)
[2023-12-29] MEDS: GABAPENTIN 300MG CAPSULE 300 MG PO ×2 (08:16→13:23)
[2023-12-29] MEDS: BUMETANIDE 1 MG TABLET PO ×2 (08:17→16:41)
[2023-12-29] MEDS: FERROUS SULFATE 325MG TABLET 325 MG PO (08:17)
[2023-12-29] MEDS: ENOXAPARIN 40MG/0.4ML SYRINGE 40 MG SQ (08:17)
[2023-12-29] MEDS: ASPIRIN EC 81MG TABLET 81 MG PO (08:17)
[2023-12-29] MEDS: MEMANTINE 10MG TABLET 10 MG PO (08:17)
[2023-12-29] MEDS: METOPROLOL SUCCINATE XL 25MG TABLET 25 MG PO (08:17)
[2023-12-29] MEDS: CHOLECALCIFEROL 1,000 UNITS (25MCG) TABLET 125 MCG PO (08:17)
[2023-12-29] MEDS: EMPAGLIFLOZIN 10MG TABLET 10 MG PO (08:17)
[2023-12-29] MEDS: SPIRONOLACTONE 25MG TABLET 12.5 MG PO (08:18)
[2023-12-29] MEDS: POTASSIUM CHLORIDE 20MEQ TAB 40 MEQ PO (08:19)
--- NOTE | 2023-12-29 08:24 | P.PN_ITS ---
Subjective Subjective Date: 12/29/23 Time: 08:24 Principal diagnosis: Cardiomyopathy, A-fib with RVR, HFrEF Interval history: 83-year-old white female in bed in no acute distress. She states she feels like she is breathing better. No chest pain complaints. Exam Data for Last 24 hours Vital signs and Labs for Last 24 Hours: Temp Pulse Resp BP Pulse Ox O2 Del Method O2 Flow Rate 98.9 F 94 H 21 124/69 96 Nasal Cannula 3 12/29/23 08:00 12/29/23 08:00 12/29/23 08:00 12/29/23 08:00 12/29/23 08:00 12/29/23 08:00 12/29/23 08:00 FiO2 28 12/27/23 18:53 Laboratory Results - last 24 hr 12/28/23 06:15: NT-Pro-B Natriuret Pep 5430 H, Procalcitonin 0.087 12/29/23 05:43: WBC 12.1 H, RBC 4.24, Hgb 13.3, Hct 44.0, MCV 103.8 H, MCH 31.5 H, MCHC 30.3 L, RDW 13.9, Plt Count 232, MPV 9.6, Neut % (Auto) 76.7, Lymph % (Auto) 10.1, [place] % (Auto) 9.8 H, Eos % (Auto) 2.9, Baso % (Auto) 0.5, Neut # (Auto) 9.3 H, Lymph # (Auto) 1.2, [place] # (Auto) 1.2 H, Eos # (Auto) 0.4, Baso # (Auto) 0.1, Sodium 139, Potassium 2.7 L*, Chloride 101, Carbon Dioxide 32 H, Anion Gap 8.7, BUN 13 D, Creatinine 0.60, Estimated Creat Clear 46, Estimated GFR 95, Est GFR ( Amer) 116, Glucose 124 H D, Calcium 8.5 I & O for Last 24 hours: Intake & Output 12/26/23 12/27/23 12/28/23 12/29/23 11:59 11:59 11:59 11:59 Intake Total 1270 / 1270 780 / 780 480 / 480 510 / 510 Output Total 1500 / 2225 1875 / 1875 2350 / 2350 2125 / 2125 Balance -230 / -955 -1095 / -1095 -1870 / -1870 -1615 / -1615 Weight 158 lb 8.198 oz 165 lb 11.2 oz 152 lb 11.2 oz 151 lb 6 oz Constitutional Constitutional: no acute distress *Routine Respiratory Exam Respiratory: Present CTA bilaterally and diminished air movement; Absent wheezes *Routine Cardiovascular Exam Cardiovascular: Present RRR; Absent murmur, gallop or rubs *Routine Extremities Exam Extremities: Absent edema *Routine Neurological Exam Neurological: Present alert Progress Note: A&P Assessment and plan (1) Acute HFrEF (heart failure with reduced ejection fraction): Status: Acute (2) Myocardial injury: Status: Acute (3) Atrial fibrillation with RVR: Status: Acute (4) Transaminitis: Status: Acute (5) Dementia: Status: Acute Assessment and Plan Assessment and Plan for All Diagnoses:: 1. Acute left systolic heart failure -New diagnosis this admission with proBNP 11,000, vascular congestion on chest x-ray, weakness and shortness of breath -New diagnosis A-fib RVR -New diagnosis EF 30 -BP improved so we will start Entresto -She has diuresed 6.2 L since admission -Try Jardiance, watch for yeast infection -Add Toprol as she also has A-fib and needs rate control -Stop verapamil due to cardiomyopathy -Not a candidate for a heart cath due to advanced dementia 2. A-fib RVR -New diagnosis this admit -Spontaneous conversion to sinus rhythm with rate control -Add Toprol-XL 25, monitor blood pressure -Add Eliquis 5 mg twice daily, monitor for bleeding 3. Transaminitis -Possibly from CHF -Improving 4. Acute hypoxic respiratory failure -Likely from CHF, infectious process workup also in place -No evidence of pneumonia on chest CTA, 12/24/2023 5. Hard of hearing -Uses hearing aids/cochlear implants 6. Hypokalemia -Adjusting dose of spironolactone and potassium supplementation Awaiting placement at a skilled facility Continue to monitor blood pressure with institution of Entresto Increase spironolactone to 25 mg BID for diuresis and hypokalemia Will need close monitoring of potassium and renal functions. Anticipate discharge in the next 1 to 2 days. [facility] medication recommendations: Jardiance 10 mg daily Metoprolol XL 25 mg daily Aspirin 81 mg daily Pravachol 40 mg daily Apixaban 5 mg twice daily Entresto 24/26 mg twice daily Bumex 1 mg twice daily Spironolactone 25 mg twice daily Potassium chloride 40 meq BID Closely monitor renal function and potassium with blood work at least once per week in order to adjust diuretics and potassium. Follow-up in our office in 2 weeks.
[2023-12-29] MEDS: SPIRONOLACTONE 25MG TABLET 25 MG PO (09:26)
--- NOTE | 2023-12-29 10:21 | PC.NURSE ---
Pt given specimen cup in attempt to collect sputum sample.
--- NOTE | 2023-12-29 11:29 | DIET.NUTRFU ---
Rounded with IDT, patient waiting on placement. NO BM noted since admit, provider plans to start BM regimen. Breakfast intake was good this AM at 75%, she is ordered ensure vanilla due to her intake not beginning consistent.
--- NOTE | 2023-12-29 13:10 | P.DS_ITS ---
General Admission date:: 12/25/23 Discharge date: 12/29/23 HPI HPI HPI: 83-year-old white female without known cardiovascular disease transported from [facility] for altered mental status tachycardia and low blood pressure. Patient has severe dementia and history is obtained from chart and her granddaughter who is bedside. Apparently dementia has been worsening recently and patient is also had worsening weakness and episodes of tachycardia with low blood pressure. In the emergency room she was found to be in new to onset A-fib RVR-heart rate 140s. She has 2+ pitting edema lactate of 4 transaminitis, troponin 1.75, proBNP 11,000, chest x-ray with perihilar consolidation versus vascular congestion, hypoxia requiring 2.5 L/min O2 by nasal cannula. She was admitted overnight started on Eliquis and metoprolol. This morning she is sinus rhythm and resting comfortably with stable vital signs. Preliminary echo shows EF 30% which is a new diagnosis for her. Hospital Course Hospital Course Hospital Course: The patient is admitted to the telemetry unit with cardiology consultation. Imaging, labs and inflammatory markers are assessed and trended. Problems addressed as follows: Myocardial injury type II Atrial fibrillation with RVR Acute HFrEF (stage C/NYHA IV) Telemetry monitoring Cardiology consultation [id number] ED troponin trend noted ECG with A-fib with RVR rate 105 Echo: EF 25%, G2 DD, severe MR, AR, TR, RVSP 44 mmHg Aspirin 81 mg daily Statin therapy Beta-jeancarlos therapy Loop diuretic therapy SGLT2 inhibitor therapy ARNI therapy started 12/28/2023 Aldosterone antagonist therapy Anticoagulation with Eliquis 5 mg twice daily Avoiding calcium channel jeancarlos therapy with identified EF Trending electrolytes, magnesium and creatinine Accurate I's and O's Sodium and fluid restriction Routine weights Acute hypoxic respiratory failure Pulse oximetry monitoring Oxygen therapy to maintain appropriate oxygen saturations Currently requiring 2 L via NC CTA chest: No PE, groundglass opacities perihilar region, no infiltrates, no co nsolidations Lavonne/Brielle inhalation therapy Trending labs and inflammatory markers Ambulatory oxygen evaluation for discharge planning Dementia Routine nursing interaction Namenda therapy Fall precautions PT/OT evaluation for discharge planning Long-term care resident Case management consult for discharge planning The patient was hospitalized for 5 days with above diagnoses complicated by her advanced age and dementia. A poor prognoses was identified and goals of care conversation occurred. Family requested transition to [facility] facility with eventual transition into long-term care. They are concerned returning to independent living/assisted living is no longer an option with her advancing dementia. Ancillary services evaluated the patient. Oxygen requirements for discharge are noted. Case management assisted with discharge planning including identifying facility and transportation needs. I spent 35 minutes in [id number] time with the patient, case management, family at bedside and nursing staff (Juan José) concerning the discharge process. We discussed the admitting diagnoses and hospital course. We discussed identified improvement and the patient's/family desire to transition care to SNF with eventual transition to group home care. We reviewed inpatient studies and imaging. The patient/family voiced understanding on the importance of follow-up with her primary care provider and specialist(s). [facility] care will be transition[facility] to [facility]. Exam Data for Last 24 hours Vital signs and Labs for Last 24 Hours: Temp Pulse Resp BP Pulse Ox O2 Del Method O2 Flow Rate 97.6 F 103 H 19 117/65 96 Nasal Cannula 2 12/29/23 11:44 12/29/23 11:44 12/29/23 11:44 12/29/23 11:44 12/29/23 11:44 12/29/23 11:44 12/29/23 11:44 FiO2 28 12/27/23 18:53 Laboratory Results - last 24 hr 12/29/23 05:43: WBC 12.1 H, RBC 4.24, Hgb 13.3, Hct 44.0, MCV 103.8 H, MCH 31.5 H, MCHC 30.3 L, RDW 13.9, Plt Count 232, MPV 9.6, Neut % (Auto) 76.7, Lymph % (Auto) 10.1, [place] % (Auto) 9.8 H, Eos % (Auto) 2.9, Baso % (Auto) 0.5, Neut # (Auto) 9.3 H, Lymph # (Auto) 1.2, [place] # (Auto) 1.2 H, Eos # (Auto) 0.4, Baso # (Auto) 0.1, Sodium 139, Potassium 2.7 L*, Chloride 101, Carbon Dioxide 32 H, Anion Gap 8.7, BUN 13 D, Creatinine 0.60, Estimated Creat Clear 46, Estimated GFR 95, Est GFR ( Amer) 116, Glucose 124 H D, Calcium 8.5 I & O for Last 24 hours: Intake & Output 12/26/23 12/27/23 12/28/23 12/29/23 23:59 23:59 23:59 23:59 Intake Total 1210 / 1450 600 / 720 510 / 750 1140 / 1140 Output Total 1125 / 1125 3200 / 3200 2100 / 2100 1125 / 1125 Balance 85 / 325 -2600 / -2480 -1590 / -1350 15 Weight 71.9 kg 75.16 kg 69.264 kg 68.663 kg Constitutional Constitutional: no acute distress, chronically ill appearing and cooperative *Routine HEENT Exam Head: Present normocephalic Eye: Present EOMI and PERRL ENT: Present mucous membranes moist *Routine Neck Exam Neck: Absent JVD or lymphadenopathy *Routine Respiratory Exam Respiratory: Present rhonchi, normal respiratory effort and symmetric chest movement *Routine Cardiovascular Exam Cardiovascular: Present RRR and murmur *Routine Abdominal Exam Abdominal: Present soft and normoactive bowel sounds; Absent tenderness *Routine Extremities Exam Extremities: Present edema *Routine Skin Exam Skin: Present warm *Routine Neurological Exam Neurological: Present alert, moving all extremities, vision grossly intact and hearing grossly intact Routine Psychiatric Exam Psychiatric: Present cooperative Results Data Completed and Pending Labs on day of discharge: Labs from last 24 hours 12/29/23 05:43 WBC 12.1 H RBC 4.24 Hgb 13.3 Hct 44.0 MCV 103.8 H MCH 31.5 H MCHC 30.3 L RDW 13.9 Plt Count 232 MPV 9.6 Neut % (Auto) 76.7 Lymph % (Auto) 10.1 [place] % (Auto) 9.8 H Eos % (Auto) 2.9 Baso % (Auto) 0.5 Neut # (Auto) 9.3 H Lymph # (Auto) 1.2 [place] # (Auto) 1.2 H Eos # (Auto) 0.4 Baso # (Auto) 0.1 Sodium 139 Potassium 2.7 L* Chloride 101 Carbon Dioxide 32 H Anion Gap 8.7 BUN 13 D Creatinine 0.60 Estimated Creat Clear 46 Estimated GFR 95 Est GFR ( Amer) 116 Glucose 124 H D Calcium 8.5 Preliminary micro results at discharge 12/25/23 16:27 Blood Culture - Preliminary Blood NO GROWTH AFTER 48 HOURS 12/25/23 16:18 Blood Culture - Preliminary Blood NO GROWTH AFTER 48 HOURS DS: Diagnosis Discharge Diagnosis (1) Acute HFrEF (heart failure with reduced ejection fraction): Status: Acute Code(s): I50.21 - Acute systolic (congestive) heart failure (2) Myocardial injury: Status: Acute Code(s): I5A - Non-ischemic myocardial injury (non-traumatic) (3) Atrial fibrillation with RVR: Status: Acute Code(s): I48.91 - Unspecified atrial fibrillation (4) Transaminitis: Status: Acute Code(s): R74.01 - Elevation of levels of liver transaminase levels (5) Dementia: Status: Acute Code(s): F03.90 - Unspecified dementia, unspecified severity, without behavioral disturbance, psychotic disturbance, mood disturbance, and anxiety Meds Home Medications and Allergies Home Medications ?Medication ?Instructions ?Recorded ?Confirmed ?Type cholecalciferol (vitamin D3) 125 5,000 unit PO DAILY 02/25/18 12/25/23 History mcg (5,000 unit) capsule gabapentin 300 mg capsule 300 mg PO TID 02/25/18 12/25/23 History memantine 10 mg tablet 10 mg PO BID 02/25/18 12/25/23 History omeprazole 20 mg capsule,delayed 20 mg PO HS 06/27/23 12/25/23 History release potassium chloride 10 mEq 10 meq PO DAILY 06/27/23 12/25/23 History capsule,extended release ferrous sulfate 325 mg (65 mg 325 mg PO DAILY 12/25/23 12/25/23 History iron) tablet (FeroSul) apixaban 5 mg tablet (Eliquis) 5 mg PO BID #60 tabs 12/29/23 Rx aspirin 81 mg tablet,delayed 81 mg PO DAILY #30 tabs 12/29/23 Rx release bumetanide 1 mg tablet 0.5 mg (1/2 x 1 mg) PO BIDL #30 12/29/23 Rx tabs empagliflozin 10 mg tablet 10 mg PO DAILY #30 tabs 12/29/23 Rx (Jardiance) ipratropium 0.5 mg-albuterol 3 mg 3 ml inhalation BIDRT #320 mL 12/29/23 Rx (2.5 mg base)/3 mL nebulization soln metoprolol succinate 25 mg 25 mg PO DAILY #30 tabs 12/29/23 Rx tablet,extended release 24 hr pravastatin 40 mg tablet 40 mg PO HS #30 tabs 12/29/23 Rx sacubitril 24 mg-valsartan 26 mg 1 tab PO BID #60 tabs 12/29/23 Rx tablet (Entresto) spironolactone 25 mg tablet 25 mg PO BID #60 tabs 12/29/23 Rx New Prescriptions to Start Prescriptions: apixaban [Eliquis] Emeric,Wally aspirin Emeric,Wally bumetanide Emeric,Wally empagliflozin [Jardiance] Emeric,Wally ipratropium-albuterol Emeric,Wally metoprolol succinate Emeric,Wally pravastatin Emeric,Wally sacubitril-valsartan [Entresto] Emeric,Wally spironolactone Emeric,Wally Allergies Allergy/AdvReac Type Severity Reaction Status Date / Time Penicillins [PENICILLINS] Allergy Unknown I-RASH Verified 12/25/23 01:25 Sulfa (Sulfonamide Allergy Unknown I-RASH Verified 12/25/23 01:25 Antibiotics) [SULFA (SULFONAMIDE ANTIBIOTICS)] Discharge Plan Disposition Patient Disposition: [facility] Condition: Serious Discharge Order Discharge Orders: Discharge Order (Routine); Ordered 12/29/23 Ordered By: Wally Watts Follow up Plan Follow up with: Jesús Friedman PA [Physician Object Oriented Developer] - 01/11/24 2:45 pm Prescriptions/Medication Reconciliation: New aspirin 81 mg Tablet,Delayed Release (Dr/Ec) 81 mg PO DAILY Qty: 30 0RF Eliquis 5 mg Tablet 5 mg PO BID Qty: 60 0RF bumetanide 1 mg Tablet 0.5 mg PO BIDL Qty: 30 0RF ipratropium-albuterol 0.5 mg-3 mg(2.5 mg base)/3 mL Solution For Nebulization 3 ml inhalation BIDRT Qty: 320 0RF pravastatin 40 mg Tablet 40 mg PO HS Qty: 30 0RF spironolactone 25 mg Tablet 25 mg PO BID Qty: 60 0RF metoprolol succinate 25 mg Tablet Extended Release 24 Hr 25 mg PO DAILY Qty: 30 0RF Jardiance 10 mg Tablet 10 mg PO DAILY Qty: 30 0RF Entresto 24-26 mg Tablet 1 tab PO BID Qty: 60 0RF Continued memantine 10 mg tablet 10 mg PO BID gabapentin 300 mg capsule 300 mg PO TID cholecalciferol (vitamin D3) 5,000 unit capsule 5,000 unit PO DAILY potassium chloride 10 mEq capsule, extended release 10 meq PO DAILY omeprazole 20 mg capsule,delayed release(DR/EC) 20 mg PO HS ferrous sulfate [FeroSul] 325 mg (65 mg iron) tablet 325 mg PO DAILY Discontinued verapamil 240 mg capsule,ext rel. pellets 24 hr 240 mg PO DAILY lovastatin 40 mg tablet 40 mg PO HS aspirin [Adult Low Dose Aspirin] 81 mg tablet,delayed release (DR/EC) 81 mg PO DAILY furosemide 20 MG tablet 20 mg PO DAILY Problem Reconciliation Problems Reviewed?: Yes Patient Discharge Instructions ACTIVITY: Ambulate as tolerated DIET: low salt diet and cardiac Patient Instructions: DI for Heart Failure Print Language: Maori Providers Primary Care Provider: Stephan Tello Admit Provider: Deng Mejia Attending Provider: Deng Mejia
--- NOTE | 2023-12-29 14:00 | PC.NURSE ---
Pt Chandler catheter removed per MD request.
--- NOTE | 2023-12-29 17:29 | PC.NURSE ---
Pt discharging to [facility], Report called to MACRINA Casey. EMS service contacted [phone] for transport to [facility] stated that all ambulances were out right now but would come when they got back. Althea ([employer]) called for an update and they said it would be about an hour.
[2023-12-29] MEDS: IPRATROPIUM/ALBUTEROL 3 ML NEB IH (18:37)
--- NOTE | 2023-12-29 20:22 | PC.NURSE ---
Patient left floor with EMS at 20:22.
== END 2023-12-29 20:23 | DRG 280 ==
LOC: ER 22:05 → 2ND 12-25 00:14
PROVIDERS: Family Medicine; Nurse Practitioner Family; Physician Assistant; Admitting Provider Internal Medicine; Emergency Provider Emergency Medicine; PCP Internal Medicine Adolescent Medicine; Visit Provider Internal Medicine
DX: I11.0 Hypertensive heart disease with heart failure (principal); I50.21 Acute systolic (congestive) heart failure; I21.A1 Myocardial infarction type 2; J18.9 Pneumonia, unspecified organism; J96.01 Acute respiratory failure with hypoxia; I42.9 Cardiomyopathy, unspecified; F03.90 Unspecified dementia, unspecified severity, without behavioral disturbance, psychotic disturbance, mood disturbance, and anxiety; I48.91 Unspecified atrial fibrillation; M19.90 Unspecified osteoarthritis, unspecified site; E87.6 Hypokalemia
CPT/HCPCS: 36415; 51702; 70450; 70496; 70498; 71045; 71275; 74177; 80048; 80053; 80074; 81001; 82803; 82977; 83605; 83690; 83735; 83880; 84145; 84484; 85025; 85610; 87040; 87636; 93005; 93306; 93325; 94618; 94640; 94761; 97110; 97163; 97165; 97530; 99285; J0456; J0696; J1650; J1940; J7030; J7050; J7120; J7613; J7620; Q9957; Q9967

== ENCOUNTER 2024-01-21 14:23 | Inpatient (IN) | payer MEDICARE, SELFPAY ==
[2024-01-21] VITALS (22 sets, daily range): BP systolic 62–123; BP diastolic 35–80; PULSE 88–136; RESP 19–35; TEMP 36.6–37.3; O2SAT 88–97; BMI 25.8
--- NOTE | 2024-01-21 14:28 | ED_ITS ---
<Statement entered by Yaneli Cortés DO - 01/21/24 15:21> I was consulted by the CEZAR, and we discussed the complexity of the problems being addressed. I approved the treatment and management plan for this patient's care in the emergency department, thus performing a substantive portion of the medical decision making. Patient arrives critically ill with hypotension and atrial fibrillation with RVR, but she is in no acute distress. She is lying comfortably on the stretcher. She has a signed form with her daughter that says that she does not want to be defibrillated or cardioverted and is a DNR/DNI as well. She has advanced heart failure on medical record review from previous evaluation. No rate control was administered initially, as we were concerned that she would become more hypotensive. She was not cardioverted given her signed wishes. We tried a small fluid bolus challenge, which she did not respond to, so this was aborted as we do not want to volume overload the patient. She has signs of poor organ perfusion with a CASI with a creatinine up to 1.8 from 0.6. Ultimately we called cardiology who advised they would recommend administering oral metoprolol and admitting the patient for acute on chronic congestive heart failure. This was done after an interactive discussion with the hospitalist Yaneli Cortés DO Discharge Plan Disposition Patient Disposition: Admitted Condition: Fair Chief Complaint: Weakness Prescriptions Prescriptions: No Action memantine 10 mg tablet 10 mg PO BID gabapentin 300 mg capsule 300 mg PO TID cholecalciferol (vitamin D3) 5,000 unit capsule 5,000 unit PO DAILY potassium chloride 10 mEq capsule, extended release 10 meq PO DAILY omeprazole 20 mg capsule,delayed release(DR/EC) 20 mg PO HS ferrous sulfate [FeroSul] 325 mg (65 mg iron) tablet 325 mg PO DAILY aspirin 81 mg Tablet,Delayed Release (Dr/Ec) 81 mg PO DAILY Qty: 30 0RF Eliquis 5 mg Tablet 5 mg PO BID Qty: 60 0RF bumetanide 1 mg Tablet 0.5 mg PO BIDL Qty: 30 0RF ipratropium-albuterol 0.5 mg-3 mg(2.5 mg base)/3 mL Solution For Nebulization 3 ml inhalation BIDRT Qty: 320 0RF pravastatin 40 mg Tablet 40 mg PO HS Qty: 30 0RF spironolactone 25 mg Tablet 25 mg PO BID Qty: 60 0RF metoprolol succinate 25 mg Tablet Extended Release 24 Hr 25 mg PO DAILY Qty: 30 0RF Jardiance 10 mg Tablet 10 mg PO DAILY Qty: 30 0RF Entresto 24-26 mg Tablet 1 tab PO BID Qty: 60 0RF Referrals Follow up/Referrals: Airam Urban APRN [Primary Care Provider] - See instructions Clinical Impressions Clinical Impression: Atrial fibrillation with rapid ventricular response, Acute on chronic congestive heart failure Print Language Print Language: Yakut Discharge ED Provider: Yaneli Cortés General Adult HPI <DALJIT Patino - Last Filed: 01/21/24 15:13> General Chief complaint: Weakness Stated complaint: ams Time Seen by Provider: 01/21/24 14:28 History of Present Illness HPI narrative: [facility]. Patient has a history of atrial fibrillation on chronic beta-blockade. She is on metoprolol however it was noted that she has had a low blood pressure on vital signs [facility] the [facility] today. There is no report whether or not that she had a fast heart rate. EMS brought her BLS and thus we do not have any in-transit vital signs of her heart rate. On arrival patient is in atrial fibrillation with RVR with a blood pressure of 84 systolic. Patient herself has no complaints no chest pain shortness of breath fever chills hemoptysis hematochezia melena nausea vomiting diarrhea. Patient does have a recent echocardiogram done this month that shows a new diagnosis of heart failure with an EF of approximately 20 to 25%. She is follows with Dr. Faust's group Related Data Home Medications ?Medication ?Instructions ?Recorded ?Confirmed cholecalciferol (vitamin D3) 125 5,000 unit PO DAILY 02/25/18 01/11/24 mcg (5,000 unit) capsule gabapentin 300 mg capsule 300 mg PO TID 02/25/18 01/11/24 memantine 10 mg tablet 10 mg PO BID 02/25/18 01/11/24 omeprazole 20 mg capsule,delayed 20 mg PO HS 06/27/23 01/11/24 release potassium chloride 10 mEq 10 meq PO DAILY 06/27/23 01/11/24 capsule,extended release ferrous sulfate 325 mg (65 mg 325 mg PO DAILY 12/25/23 01/11/24 iron) tablet (FeroSul) Previous Rx's ?Medication ?Instructions ?Recorded apixaban 5 mg tablet (Eliquis) 5 mg PO BID #60 tabs 12/29/23 aspirin 81 mg tablet,delayed 81 mg PO DAILY #30 tabs 12/29/23 release bumetanide 1 mg tablet 0.5 mg (1/2 x 1 mg) PO BIDL #30 12/29/23 tabs empagliflozin 10 mg tablet 10 mg PO DAILY #30 tabs 12/29/23 (Jardiance) ipratropium 0.5 mg-albuterol 3 mg 3 ml inhalation BIDRT #320 mL 12/29/23 (2.5 mg base)/3 mL nebulization soln metoprolol succinate 25 mg 25 mg PO DAILY #30 tabs 12/29/23 tablet,extended release 24 hr pravastatin 40 mg tablet 40 mg PO HS #30 tabs 12/29/23 sacubitril 24 mg-valsartan 26 mg 1 tab PO BID #60 tabs 12/29/23 tablet (Entresto) spironolactone 25 mg tablet 25 mg PO BID #60 tabs 12/29/23 Allergies Allergy/AdvReac Type Severity Reaction Status Date / Time Penicillins [PENICILLINS] Allergy Unknown I-RASH Verified 01/11/24 14:56 Sulfa (Sulfonamide Allergy Unknown I-RASH Verified 01/11/24 14:56 Antibiotics) [SULFA (SULFONAMIDE ANTIBIOTICS)] [facility] <DALJIT Patino - Last Filed: 01/21/24 15:13> [facility] Disclaimer: The information contained in this section may have been updated after the patient was seen, as this information can be updated by other users. Medical History History of dementia Surgical History History of cochlear implant History of cataract surgery History of back surgery History of cholecystectomy 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 Smoking Status: Never smoker second hand exposure: No alcohol intake: never current occupational status: other Travel in the last 8 weeks: None household members: family housing: house current occupational exposures/hazards: No caffeine: No Other Medical History Have you received the Flu Vaccine for this season: No (unknown) Have you received the Pneumonia Vaccine: Yes <DALJIT Patino - Last Filed: 01/21/24 15:13> ROS Obtained: Yes Systems reviewed as appropriate & no additional complaints except as documented Physical Exam <DALJIT Patino - Last Filed: 01/21/24 15:13> General General appearance: alert and in no apparent distress Respiratory Respiratory exam: Present normal lung sounds bilaterally Cardiovascular Cardiovascular exam: Present regular rate Neurological Exam Neurological exam: Present alert and oriented X3 Medical Decision Making <DALJIT Patino - Last Filed: 01/21/24 15:13> Medical Records Medical records reviewed: Yes I reviewed the patient's medical records. Screening: Per USPSTF and CDC recommendations, given the prevalence of disease in our region, it is our hospital?s policy to screen for HIV and viral Hepatitis for all patients aged 18 and over and those with ongoing risk factors. [place] Inquiry Pt receiving controlled substance: No Vital Signs: 01/21/24 14:30 01/21/24 14:37 Temperature 98 F Temperature Source Oral Pulse Rate 130 H Pulse Rate [Left] 119 H Respiratory Rate 25 H 29 H Blood Pressure [Right Arm] 84/55 L Blood Pressure Mean [Right Arm] 64 Blood Pressure Source [Right Arm] Automatic Cuff Blood Pressure Position [Right Arm] Sitting 02 Sat by Pulse Oximetry 88 L 95 Oxygen Delivery Method Nasal Cannula Oxygen Flow Rate (LPM) 2 Lab Data Lab results reviewed: Yes I reviewed the patient's lab results. Lab Results 01/21/24 14:28: WBC 7.4, RBC 4.27, Hgb 13.5, Hct 44.2, MCV 103.6 H, MCH 31.7 H, MCHC 30.6 L, RDW 13.9, Plt Count 208, MPV 9.3, Neut % (Auto) 60.2, Lymph % (Auto) 27.8, [place] % (Auto) 6.8, Eos % (Auto) 4.6, Baso % (Auto) 0.6, Neut # (Auto) 4.5, Lymph # (Auto) 2.1, [place] # (Auto) 0.5, Eos # (Auto) 0.3, Baso # (Auto) 0.1, PT 15.6 H, INR 1.44 H 01/21/24 14:28 Orders (Tests/Meds): ED MEDICATIONS Generic Name Dose Route Start Last Admin Trade Name Conner PRN Reason Stop Dose Admin Sodium Chloride 1,000 mls @ 999 mls/hr 01/21/24 14:30 01/21/24 14:35 Sod Chlor 0.9% 1000ml Bag IV 01/21/24 15:30 999 mls/hr .Q1H1M ONE Administration ORDERS Category Date Time Status CXR --portable [XR chest portable] Stat Exams 01/21/24 14:48 Ordered BNP [NT Pro Brain Natriuretic Pep.] Stat Lab 01/21/24 14:28 Received CBC w/Auto Diff [Complete Blood Count Auto Diff] Stat Lab 01/21/24 14:28 Completed CMP [Comprehensive Metabolic Panel] Stat Lab 01/21/24 14:28 Received HIV (1&2) Antibody Rapid Stat Lab 01/21/24 14:28 Received Hep C Ab with Reflex to RNA Stat Lab 01/21/24 14:28 Received INR [Prothrombin Time INR] Stat Lab 01/21/24 14:28 Completed Magnesium Stat Lab 01/21/24 14:28 Received T4 (Thyroxine) Stat Lab 01/21/24 14:28 Received TSH [Thyroid Stimulating Hormone] Stat Lab 01/21/24 14:28 Received Trop I [Troponin I] Stat Lab 01/21/24 14:28 Received Troponin I Q3H Lab 01/21/24 17:30 Ordered Troponin I Q3H Lab 01/21/24 20:30 Ordered UA [Urinalysis and Microscopic] Stat Lab 01/21/24 14:30 Ordered Blood Culture Stat Micro 01/21/24 14:48 Ordered VBG [Venous Blood Gas] Stat RT 01/21/24 14:48 Ordered Medical Decision Narrative: In summary patient is a 83-year-old female who presents to the emergency department for evaluation of hypotension. Patient is patient is hypotensive on arrival with a systolic blood pressure of 84 diastolic 55 heart rate of 119 sustained breathing 25 times a minute satting at 88% on 2 L by nasal cannula initially with a temperature of 98. Physical exam is remarkable for a well- nourished well-developed 83-year-old female who is tachypneic but does not appear to be in acute distress. She herself denies any acute complaints. Breath sounds are clear and equal. Differential diagnosis includes decompensated heart failure atrial fibrillation with rapid ventricular response etc. Initial workup will be conducted with hematologic labs. Initial interventions include a small fluid challenge which the patient did not tolerate. Given that I had interactive discussion with Dr. Faust about patient management. He recommended not starting her on pressors not giving her any more fluid giving her a 50 mg p.o. dose of metoprolol tolerate admission and they will continue to follow. Given that I had interactive discussion with hospital medicine about patient management and she will be admitted for further evaluation and care <Yaneli Cortés, DO - Last Filed: 01/21/24 14:52> Vital Signs: 01/21/24 14:30 01/21/24 14:37 Temperature 98 F Temperature Source Oral Pulse Rate 130 H Pulse Rate [Left] 119 H Respiratory Rate 25 H 29 H Blood Pressure [Right Arm] 84/55 L Blood Pressure Mean [Right Arm] 64 Blood Pressure Source [Right Arm] Automatic Cuff Blood Pressure Position [Right Arm] Sitting 02 Sat by Pulse Oximetry 88 L 95 Oxygen Delivery Method Nasal Cannula Oxygen Flow Rate (LPM) 2 Lab Data Lab Results 01/21/24 14:28: WBC 7.4, RBC 4.27, Hgb 13.5, Hct 44.2, MCV 103.6 H, MCH 31.7 H, MCHC 30.6 L, RDW 13.9, Plt Count 208, MPV 9.3, Neut % (Auto) 60.2, Lymph % (Auto) 27.8, [place] % (Auto) 6.8, Eos % (Auto) 4.6, Baso % (Auto) 0.6, Neut # (Auto) 4.5, Lymph # (Auto) 2.1, [place] # (Auto) 0.5, Eos # (Auto) 0.3, Baso # (Auto) 0.1, PT 15.6 H, INR 1.44 H Orders (Tests/Meds): ED MEDICATIONS Generic Name Dose Route Start Last Admin Trade Name Freq PRN Reason Stop Dose Admin Sodium Chloride 1,000 mls @ 999 mls/hr 01/21/24 14:30 01/21/24 14:35 Sod Chlor 0.9% 1000ml Bag IV 01/21/24 15:30 999 mls/hr .Q1H1M ONE Administration ORDERS Category Date Time Status CXR --portable [XR chest portable] Stat Exams 10/03/24 14:48 Ordered BNP [NT Pro Brain Natriuretic Pep.] Stat Lab 01/21/24 14:28 Received CBC w/Auto Diff [Complete Blood Count Auto Diff] Stat Lab 01/21/24 14:28 Completed CMP [Comprehensive Metabolic Panel] Stat Lab 01/21/24 14:28 Received HIV (1&2) Antibody Rapid Stat Lab 01/21/24 14:28 Received Hep C Ab with Reflex to RNA Stat Lab 01/21/24 14:28 Received INR [Prothrombin Time INR] Stat Lab 01/21/24 14:28 Completed Magnesium Stat Lab 01/21/24 14:28 Received T4 (Thyroxine) Stat Lab 01/21/24 14:28 Received TSH [Thyroid Stimulating Hormone] Stat Lab 01/21/24 14:28 Received Trop I [Troponin I] Stat Lab 01/21/24 14:28 Received Troponin I Q3H Lab 01/21/24 17:30 Ordered Troponin I Q3H Lab 01/21/24 20:30 Ordered UA [Urinalysis and Microscopic] Stat Lab 01/21/24 14:30 Ordered Blood Culture Stat Micro 01/21/24 14:48 Ordered VBG [Venous Blood Gas] Stat RT 01/21/24 14:48 Ordered ECG Data Tracing #1: I reviewed this ECG and interpreted as documented below: Atrial fibrillation with rapid ventricular response with a ventricular rate of 114 bpm. Left bundle branch block noted. No significant changes noted from prior EKG. ECG initial impression date: 01/21/24 ECG initial impression time: 14:35 Critical Care <DALJIT Patino - Last Filed: 01/21/24 15:13> Critical Care Time Critical Care Time: No
--- NOTE | 2024-01-21 14:33 | ECG_ITS ---
APPROVED REPORT Exam: Resting ECG HR:114 bpm ECG Measurements Heart Rate 114 AXES QRSd 153 QRS -2 QT 357 T 165 QTc 424 Conclusion ATRIAL FIBRILLATION WITH RAPID VENTRICULAR RESPONSE LEFT BUNDLE BRANCH BLOCK [120+ ms QRS DURATION, 80+ ms Q/S IN V1/V2, 85+ ms R IN I/aVL/V5/V6] ABNORMAL ECG Electronically signed by : CONSUELO JONES, 01/21/2024 15:31:25
[2024-01-21] MEDS: 0.9 % SODIUM CHLORIDE 1000ML 1,000 ML 999 ML IV (14:35)
[2024-01-21 14:44] LABS: Basophils # 0.1 K/mm3 (0-0.2); Basophils % 0.6 % (0.1-2.0); Eosinophils # 0.3 K/mm3 (0.0-0.4); Eosinophils % 4.6 % (0.1-12.0); Hematocrit 44.2 % (37.0-47.0); Hemoglobin 13.5 g/dL (12.2-16.2); Lymphocytes # 2.1 K/mm3 (0.7-4.5); Lymphocytes % 27.8 % (10-50); Mean Corpuscular HGB Conc 30.6 g/dL (31.8-35.4); Mean Corpuscular Hemoglobin 31.7 pg (27.0-31.2); Mean Corpuscular Volume 103.6 fl (81-99); Mean Platelet Volume 9.3 fl (7.4-10.4); Monocytes # 0.5 K/mm3 (0.1-1.0); Monocytes % 6.8 % (1.7-9.3); Neutrophils # 4.5 K/mm3 (1.8-7.8); Neutrophils % 60.2 % (37.0-80.0); Platelet Count 208 K/mm3 (142-424); Red Blood Count 4.27 M/mm3 (4.20-5.40); Red Cell Distribution Width 13.9 % (11.5-17.5); White Blood Count 7.4 K/mm3 (4.8-10.8)
--- NOTE | 2024-01-21 14:48 | XR_ITS ---
PROCEDURE INFORMATION: Exam: XR Chest Exam date and time: 01/21/2024 4:33 PM Age: 83 years old Clinical indication: Pain; Chest pressure; Additional info: AMS TECHNIQUE: Imaging protocol: Radiologic exam of the chest. Views: 1 view. COMPARISON: CT ANGIO CHEST PE PROTOCOL 12/24/2023 10:31 PM FINDINGS: Lungs: There is mild coarsening of the bronchovascular markings with hyperinflation suggesting underlying obstructive airways disease. There is pulmonary edema, similar to prior. Pleural spaces: No large effusion or pneumothorax. Heart/Mediastinum: Stable cardiac and mediastinal contours. Vasculature: There are calcifications of the aortic arch. Bones/joints: No evidence of acute osseous abnormalities within the visualized portions of the thoracic spine and ribs. Osseous structures appear appropriate for patient age. IMPRESSION: There is pulmonary edema, similar to prior.
[2024-01-21 14:49] LABS: INR 1.44 (0.9-1.1); Prothrombin Time 15.6 seconds (10.1-12.5)
[2024-01-21 14:57] LABS: Alanine Aminotransferase 29 U/L (12-78); Albumin Level 3.7 g/dl (3.5-5.0); Albumin/Globulin Ratio 1.4 (1.1-1.8); Alkaline Phosphatase 54 U/L (38-126); Anion Gap 10.9 mEq/L (5-15); Aspartate Amino Transferase 40 U/L (14-36); Bilirubin,Total 0.8 mg/dl (0.2-1.3); Blood Urea Nitrogen 32 mg/dl (7-17); Calcium 8.8 mg/dl (8.4-10.2); Carbon Dioxide 28 mmol/L (22.0-30.0); Chloride 101 mmol/L (98-107); Creatinine Clearance Estimated 27 mL/min (50-200); Estimated Glomerular Filt Rate 27 ml/min (>60); GFR (African American) 33 ML/MIN (>60); Globulin 2.7 g/dL (1.3-3.2); Glucose 128 mg/dl (74-100); Magnesium 1.7 mg/dl (1.6-2.3); Potassium 4.9 mmoL/L (3.5-5.1); Sodium 135 mmol/L (136-145); Total Protein,Serum 6.4 g/dl (6.3-8.2)
--- NOTE | 2024-01-21 15:01 | PC.NURSE ---
respiratory has blood for vbg
[2024-01-21 15:03] LABS: VBG Base Excess -1.3 mmol/L (-2.4-2.3); VBG HCO3 23.5 mmol/L (23-30); VBG Oxygen Saturation 92.1 % (50-70); VBG PCO2 38.8 mmol/L (35-51); VBG PO2 68.6 mmol/L (28-40); VBG Total CO2 24.7 mmol/L (23-27)
[2024-01-21 15:04] LABS: Lactate Venous 3.3 mmol/L (0.4-2.0)
[2024-01-21 15:09] LABS: Troponin I 0.05 ng/ml (0.00-0.034)
--- NOTE | 2024-01-21 15:16 | PC.NURSE ---
Pt. and family updated on POC
[2024-01-21] MEDS: METOPROLOL TARTRATE 50MG TABLET 50 MG PO (15:17)
--- NOTE | 2024-01-21 15:24 | PC.NURSE ---
report called to seferino on second floor
[2024-01-21 15:26] LABS: NT Pro Brain Natriuretic Pep. 12400 pg/mL (0-450)
[2024-01-21 15:33] LABS: T4 (Thyroxine) 9.4 ug/dl (5.53-11.0)
[2024-01-21 15:50] LABS: Thyroid Stimulating Hormone 5.55 uIU/mL (0.465-4.68)
--- NOTE | 2024-01-21 16:22 | P.CONPHA_ITS ---
Pharmacy Intervention Comments: Home medication list verified using MAR from [facility].
--- NOTE | 2024-01-21 16:22 | HMH.PHAINT1 ---
Pharmacy Intervention Comments: Home medication list verified using MAR from [facility].
--- NOTE | 2024-01-21 17:38 | XR_ITS ---
PROCEDURE INFORMATION: Exam: XR Chest Exam date and time: 01/21/2024 5:39 PM Age: 83 years old Clinical indication: Shortness of breath; Additional info: SOB TECHNIQUE: Imaging protocol: Radiologic exam of the chest. Views: 1 view. COMPARISON: CR XR CHEST PORTABLE 01/21/2024 4:33 PM FINDINGS: Lungs: No evidence of acute pulmonary disease or infiltrates Pleural spaces: No large effusion or pneumothorax. Heart/Mediastinum: Stable cardiac and mediastinal contours. Vasculature: There are calcifications of the aortic arch. Bones/joints: There is partially visualized cervical spine surgical hardware. IMPRESSION: No dense parenchymal consolidation, pleural effusion, or pneumothorax.
[2024-01-21 17:42] LABS: POC Glucose,Bedside 125 (70-110)
--- NOTE | 2024-01-21 17:42 | ECG_ITS ---
APPROVED REPORT Exam: Resting ECG HR:98 bpm ECG Measurements Heart Rate 98 AXES QRSd 159 QRS -10 QT 410 T 148 QTc 465 Conclusion ATRIAL FIBRILLATION LEFT BUNDLE BRANCH BLOCK [120+ ms QRS DURATION, 80+ ms Q/S IN V1/V2, 85+ ms R IN I/aVL/V5/V6] ABNORMAL ECG UNCONFIRMED REPORT Electronically signed by : Stephan Tello MD 01/22/2024 15:25:21
[2024-01-21 17:55] LABS: ABG Base Excess -9.1 mmol/L (-2.4-2.3); ABG HCO3 14.8 mmhg (22.0-26.0); ABG Oxygen Saturation 100 % (90-100); ABG PCO2 21.5 mmhg (35.0-45.0); ABG PH 7.46 mmol/L (7.35-7.45); ABG PO2 297.1 mmhg (80-100); ABG TCO2 15.4 mmhg (23-27); Allen's Test Acceptable; Oxygen 100 %; Source Right Radial
[2024-01-21] MEDS: NOREPINEPHRINE BITARTRATE/D5W 8 MG/250 ML PLAST..BAG 3.75 MG IV (18:06)
[2024-01-21] MEDS: MILRINONE LACTATE 20 MG in 0.9 % SODIUM CHLORIDE 80 ML 4.36 MG IV (18:07)
[2024-01-21] MEDS: FUROSEMIDE 40MG/4ML VIAL 40 MG IV (18:07)
[2024-01-21 18:11] LABS: HIV (1&2) Antibody Rapid NONREACTIVE (NONREACTIVE)
--- NOTE | 2024-01-21 18:19 | PC.NURSE ---
Addendum entered by Annette Connor RN 01/21/24 18:56: 1855-DR. WEBER TALKED TO OPERATIONS WELDER AND ORDERED FOR MILRINONE TO BE TITRATED TO 0.3MCG/KG/MIN. Original Note: AT 1735 PT REQUESTED TO SIT UP ON THE SOB. SOON PT SAT UP SHE BECAME VERY PALE AND MINIMALLY RESPONSIVE. MANUAL BP 62/35. HR 123. MOTTLING NOTED TO BLE. GLUCOSE 125. HOSPITALIST NOTIFIED AND ARRIVED TO BS AT 1740. LEVOPHED ORDERED @ 8MCG/MIN. NEW IV ACCESS. 22 G NOTED RO RAC AND 22 G NOTED TO LFA. 1800-ABG AND EKG ORDERED. MANUAL BP 110/80 1805-BP 73/46. LEVOPHED TITRATED @ 12 MCG/MIN 180- HOSPITALIST NOTIFIED CARDIOLOGY. 40 IV LASIX ONE TIME AND IV MILRINONE ORDERED @ 0.2 MCG/KG/MIN. 181- LASIX GIVEN. MILRINONE STARTED. CATHETER INSERTED. PT HAS NOT HAD ANY UOP SINCE ARRIVING TO THE FLOOR. 181- BP 87/49. PER HOSPITALIST GOAL MAP 55-60. 182- PT IS ABLE TO ANSWER QUESTIONS HOWEVER SLOW TO RESPOND. BP 77/59. O2 SATURATION 92% ON 2 L NC. AFIB ON TELEMETRY. HR 107. 1840- BP 79/55 WILL CONTINUE TO MONITOR
[2024-01-21 18:22] LABS: Troponin I 0.05 ng/ml (0.00-0.034)
--- NOTE | 2024-01-21 18:37 | P.HP_ITS ---
History of Present Illness *Admission Date: 01/21/24 *Reason for visit:: A-fib RVR, acute HFrEF *History of present illness: Ms. Melinda Hidalgo is a 83-year-old female with a medical history significant for A-fib, HFrEF (LVEF 20-25% 12/26/2023), dementia, progressive hearing loss who presents from nursing facility for weakness and hypotension. Daughter states patient has been weak for the past day, which became worse today. Patient is dementia at baseline and is unable to answer most questions appropriately. She also has significant hearing loss requiring cochlear implant. On arrival, patient's blood pressure was in the 80s over 50s heart rate in the 120s. Creatinine 1.8 (baseline 0.6), BNP 12,400, troponin 0.05. Patient was given 1 L normal saline bolus and contacted cardiology who recommended metoprolol tartrate 50 mg in admission. Case discussed with ED provider and decision was made to admit patient for A-fib RVR, acute on chronic HFrEF. [facility] Disclaimer: The information contained in this section may have been updated after the patient was seen, as this information can be updated by other users. Medical History History of dementia Surgical History History of cochlear implant History of cataract surgery History of back surgery History of cholecystectomy Family History (Updated 01/21/24 @ 16:45 by Lelia Mercedes RN) Other No significant family history 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 (Updated 01/21/24 @ 16:46 by Lelia Mercedes RN) Smoking Status: Never smoker second hand exposure: No alcohol intake: never current occupational status: retired and other Travel in the last 8 weeks: None household members: family housing: house current occupational exposures/hazards: No caffeine: No Other Medical History Have you received the Flu Vaccine for this season: Yes Have you received the Pneumonia Vaccine: Yes Meds Home Medications and Allergies Home Medications ?Medication ?Instructions ?Recorded ?Confirmed ?Type gabapentin 300 mg capsule 300 mg PO TID 02/25/18 01/21/24 History memantine 10 mg tablet 10 mg PO BID 02/25/18 01/21/24 History omeprazole 20 mg capsule,delayed 20 mg PO HS 06/27/23 01/21/24 History release potassium chloride 10 mEq 10 meq PO DAILY 06/27/23 01/21/24 History capsule,extended release empagliflozin 10 mg tablet 10 mg PO DAILY #30 tabs 12/29/23 01/21/24 Rx (Jardiance) metoprolol succinate 25 mg 25 mg PO DAILY #30 tabs 12/29/23 01/21/24 Rx tablet,extended release 24 hr pravastatin 40 mg tablet 40 mg PO HS #30 tabs 12/29/23 01/21/24 Rx spironolactone 25 mg tablet 25 mg PO BID #60 tabs 12/29/23 01/21/24 Rx polyethylene glycol 3350 17 17 g PO DAILY PRN Constipation 01/21/24 01/21/24 History gram/dose oral powder (Miralax) New Prescriptions to Start Prescriptions: Allergies Allergy/AdvReac Type Severity Reaction Status Date / Time Penicillins [PENICILLINS] Allergy Unknown I-RASH Verified 01/11/24 14:56 Sulfa (Sulfonamide Allergy Unknown I-RASH Verified 01/11/24 14:56 Antibiotics) [SULFA (SULFONAMIDE ANTIBIOTICS)] Exam Data for Last 24 hours Vital signs and Labs for Last 24 Hours: Temp Pulse Resp BP Pulse Ox O2 Del Method O2 Flow Rate 98.1 F 110 H 19 93/57 L 95 Nasal Cannula 2 01/21/24 16:00 01/21/24 17:56 01/21/24 16:00 01/21/24 16:00 01/21/24 16:00 01/21/24 17:00 01/21/24 17:00 Laboratory Results - last 24 hr 01/21/24 14:28: WBC 7.4, RBC 4.27, Hgb 13.5, Hct 44.2, MCV 103.6 H, MCH 31.7 H, MCHC 30.6 L, RDW 13.9, Plt Count 208, MPV 9.3, Neut % (Auto) 60.2, Lymph % (Auto) 27.8, [place] % (Auto) 6.8, Eos % (Auto) 4.6, Baso % (Auto) 0.6, Neut # (Auto) 4.5, Lymph # (Auto) 2.1, [place] # (Auto) 0.5, Eos # (Auto) 0.3, Baso # (Auto) 0.1, PT 15.6 H, INR 1.44 H, Sodium 135 L, Potassium 4.9, Chloride 101, Carbon Dioxide 28, Anion Gap 10.9, BUN 32 H, Creatinine 1.80 H, Estimated Creat Clear 27, Estimated GFR 27 L, Est GFR ( Amer) 33 L, Glucose 128 H, Calcium 8.8, Magnesium 1.7, Total Bilirubin 0.8, AST 40 H, ALT 29, Alkaline Phosphatase 54, Troponin I 0.05 H, NT-Pro-B Natriuret Pep 25003 H, Total Protein 6.4, Albumin 3.7, Globulin 2.7, Albumin/Globulin Ratio 1.4, TSH 5.55 H, Thyroxine (T4) 9.4, HIV 1&2 Antibody Rapid Nonreactive 01/21/24 15:01: VBG pH 7.40, VBG pCO2 38.8, VBG pO2 68.6 H, VBG HCO3 23.5, VBG Total CO2 24.7, VBG O2 Saturation 92.1 H, VBG Base Excess -1.3, VBG Lactic Acid 3.3 H 01/21/24 17:34: POC Glucose 125 H 01/21/24 17:54: Specimen Source Right radial, O2 % 100, ABG pH 7.46 H, ABG pCO2 21.5 L, ABG pO2 297.1 H, ABG HCO3 14.8 L, ABG Total CO2 15.4 L, ABG O2 Saturation 100, ABG Base Excess -9.1 L, Ilya Test Acceptable, Troponin I 0.05 H I & O for Last 24 hours: Intake & Output 01/18/24 01/19/24 01/20/24 01/21/24 23:59 23:59 23:59 23:59 Output Total 0 / 0 Balance 0 / 0 Weight 72.575 kg Constitutional Constitutional: mild distress Comments: Demented at baseline. *Routine HEENT Exam Head: Present normocephalic Eye: Present EOMI and PERRL ENT: Present mucous membranes moist *Routine Neck Exam Neck: Present supple; Absent lymphadenopathy *Routine Respiratory Exam Respiratory: Present CTA bilaterally *Routine Cardiovascular Exam Cardiovascular: Present RRR *Routine Abdominal Exam Abdominal: Present soft and normoactive bowel sounds; Absent tenderness *Routine Rectal Exam Rectal:: deferred *Routine Genitalia Exam Genitalia:: deferred *Routine Extremities Exam Extremities: Present edema; Absent cyanosis or clubbing Comments: Bilateral lower extremity pitting edema 3+. *Routine Skin Exam Skin: Present warm; Absent rash *Routine Neurological Exam Neurological: Present alert and oriented X3 Assessment and Plan *Assessment and plan (1) Cardiogenic shock: Status: Acute Category: Medical Code(s): R57.0 - Cardiogenic shock (2) Acute on chronic congestive heart failure: Status: Acute Qualifiers: Heart failure type: unspecified Qualified Code(s): I50.9 - Heart failure, unspecified Category: Medical Code(s): I50.9 - Heart failure, unspecified Plan Ms. Melinda Hidalgo is a 83-year-old female with a medical history significant for A-fib, HFrEF (LVEF 20-25% 12/26/2023), dementia, progressive hearing loss who presents from nursing facility for weakness and hypotension. Daughter states patient has been weak for the past day, which became worse today. Patient is dementia at baseline and is unable to answer most questions appropriately. She also has significant hearing loss requiring cochlear implant. On arrival, patient's blood pressure was in the 80s over 50s heart rate in the 120s. Creatinine 1.8 (baseline 0.6), BNP 12,400, troponin 0.05. Patient was given 1 L normal saline bolus and contacted cardiology who recommended metoprolol tartrate 50 mg in admission. Case discussed with ED provider and decision was made to admit patient for A-fib RVR, acute on chronic HFrEF. #Cardiogenic shock #HFrEF exacerbation #A-fib #RVR, resolved ? Patient was tachycardic 120s, hypotensive 80s over 50s on admission and alert when she reached the floor. ? However, she became more weak and endorsed increased work of breathing. ? Repeat CXR revealed pulmonary edema. IV Lasix 40 mg given. ? Dr. Faust contacted, recommended starting milrinone. ? Started IV milrinone 0.2 mcg/kg/min. Patient has clinically improved since starting. ? Started Levophed for pressure support. Pressures have improved. ? Therapeutic Lovenox. ? Avoid IV fluids given volume overload. ? Consider more diuresis if needed. ? Cardiology consulted, pending further recommendations. ? Follow-up limited echo. ? Patient may benefit from hospice care for progressive heart failure. DNR/DNI
[2024-01-21 19:05] LABS: Reflex Lactic Add Lactic Reflex
[2024-01-21 20:34] LABS: Lactic Acid Follow Up (RFLX 1) 2.7 mmol/L (0.7-2.1)
[2024-01-21] MEDS: GABAPENTIN 300MG CAPSULE 300 MG PO (20:43)
[2024-01-21] MEDS: MEMANTINE 10MG TABLET 10 MG PO (20:43)
[2024-01-21] MEDS: ENOXAPARIN 100MG/ML SYRINGE 75 MG SQ (20:43)
[2024-01-21] MEDS: PRAVASTATIN 40MG TAB 40 MG PO (20:43)
[2024-01-21 21:52] LABS: Reflex Lactic (2 hrs) Add Lactic Reflex
[2024-01-21 21:58] LABS: Troponin I 0.11 ng/ml (0.00-0.034)
[2024-01-21 22:43] LABS: Lactic Acid Follow up (RFLX 2) 1.6 mmol/L (0.7-2.1)
[2024-01-21 22:48] LABS: Microscopic, Urine URINE MICROSCOPIC (MICROSCOPIC)
[2024-01-21 22:52] LABS: Appearance,Urine CLEAR (Clear); Bilirubin,Urine Negative (Negative); Blood, Urine TRACE-L (Negative); Color,Urine YELLOW (Yellow); Glucose,Urine (UA) 2+ (Negative); Ketones,Urine Negative (Negative); Leukocyte Esterase,Urine Negative (Negative); Nitrate,Urine Negative (Negative); Protein,Urine 2+ (Negative)
--- NOTE | 2024-01-21 22:58 | PC.NURSE ---
At start of shift, Milrinone gtt @ 0.3 mcg/kg/min per Govind verbal order. Norepi gtt @ 15 mcg/min.
[2024-01-21 23:18] LABS: Bacteria,Urine 1+ /lpf; Mucus,Urine 4+ /lpf
[2024-01-22] VITALS (27 sets, daily range): BP systolic 72–138; BP diastolic 37–88; PULSE 97–145; RESP 15–28; TEMP 36.4–37.2; O2SAT 84–98; BMI 25.3
[2024-01-22 06:10] LABS: Basophils # 0.1 K/mm3 (0-0.2); Basophils % 0.8 % (0.1-2.0); Eosinophils # 0.1 K/mm3 (0.0-0.4); Eosinophils % 1.8 % (0.1-12.0); Hematocrit 44.8 % (37.0-47.0); Hemoglobin 13.7 g/dL (12.2-16.2); Lymphocytes # 1.8 K/mm3 (0.7-4.5); Lymphocytes % 25.5 % (10-50); Mean Corpuscular HGB Conc 30.6 g/dL (31.8-35.4); Mean Corpuscular Hemoglobin 32.2 pg (27.0-31.2); Mean Platelet Volume 8.5 fl (7.4-10.4); Monocytes # 0.5 K/mm3 (0.1-1.0); Neutrophils # 4.6 K/mm3 (1.8-7.8); Platelet Count 184 K/mm3 (142-424); Red Blood Count 4.26 M/mm3 (4.20-5.40); Red Cell Distribution Width 13.9 % (11.5-17.5); White Blood Count 7.1 K/mm3 (4.8-10.8)
[2024-01-22 06:20] LABS: Chloride 100 mmol/L (98-107); Potassium 4.1 mmoL/L (3.5-5.1); Sodium 135 mmol/L (136-145)
[2024-01-22 06:23] LABS: Anion Gap 15.1 mEq/L (5-15); Blood Urea Nitrogen 33 mg/dl (7-17); Calcium 8.7 mg/dl (8.4-10.2); Carbon Dioxide 24 mmol/L (22.0-30.0); Creatinine Clearance Estimated 28 mL/min (50-200); Estimated Glomerular Filt Rate 29 ml/min (>60); GFR (African American) 35 ML/MIN (>60); Glucose 120 mg/dl (74-100); Lactic Acid 1.6 mmol/L (0.7-2.1)
[2024-01-22 06:24] LABS: Magnesium 1.7 mg/dl (1.6-2.3)
--- NOTE | 2024-01-22 08:09 | SW/DCPLANNER ---
Addendum entered by Reba Parker 01/26/24 12:41: Per July w/ [facility] equipment has been set up in patient's home. Patient will discharge home w/daughter today and [facility] will admit. Addendum entered by Reba Parker 01/25/24 14:59: July w/ [facility] stated that she will order equipment to be delivered to patient's home tomorrow morning. July stated that she will be following up w/ patient tomorrow at home or onsite depending on discharge time. Addendum entered by Reba Parker 01/25/24 13:27: Patient/family has expressed an interest in comfort care rather than skilled. Family preferred to return to [facility] w/ Hospice however Haylie w/ [facility] has stated they could only accept patient under private pay due to not being approved for [facility] at this time. Daughter also asked that I contact [facility] regarding [facility] pending: Lj states no beds at this time. Daughter now prefers for patient to return home w/ her and Hospice services. Patient information has been faxed to [facility]. July w/ Hospice stated a Hospice nurse could not onsite till tomorrow morning. I expressed to [facility] that patient is medically stable for discharge at this time. July then reviewed information stated that she is a Hospice candidate and suggested we set up DME (hospital bed/O2) thru [facility] to admit at home tomorrow. CM contacted [facility] regarding situation and they stated they would not be able to set up equipment if patient was going home w/ Hospice tomorrow. I have contacted Vivian w/ Hospice and left . Original Note: This patient currently resides at [facility] SNF level of care. Per Yaneli w/ [facility] patient's family just appealed to continue SNF and if denied plans to stay LTC. I will continue to follow up w/ Yaneli at [facility] until medically stable for discharge. Discharge date is unknown at this time. Updated patient information has been faxed.
[2024-01-22] MEDS: NOREPINEPHRINE BITARTRATE/D5W 8 MG/250 ML PLAST..BAG 18.75 MG IV (08:35)
[2024-01-22] MEDS: AMIODARONE HCL 150 MG in DEXTROSE 5 % IN WATER 100 ML 600 MG IV (09:18)
[2024-01-22] MEDS: MILRINONE LACTATE 20 MG in 0.9 % SODIUM CHLORIDE 80 ML 6.53 MG IV (09:21)
[2024-01-22] MEDS: MEMANTINE 10MG TABLET 10 MG PO ×2 (09:22→21:26)
[2024-01-22] MEDS: GABAPENTIN 300MG CAPSULE 300 MG PO ×2 (09:22→21:26)
[2024-01-22] MEDS: EMPAGLIFLOZIN 10MG TABLET 10 MG PO (09:22)
[2024-01-22] MEDS: ENOXAPARIN 80MG/0.8ML SYRINGE 70 MG SQ (09:25)
[2024-01-22 09:32] LABS: Troponin I 0.74 ng/ml (0.00-0.034)
--- NOTE | 2024-01-22 09:32 | P.CONCA_ITS ---
History of Present Illness History of Present Illness Consult date: 01/22/24 Requesting physician: Peña Ramsey Consult reason: known to you Chief complaint: Weakness and hypotension History of present illness: 83-year-old white female pleasantly demented, new to our service approximately 1 month ago where she was [facility] with weakness and hypotension. During admission she was found to have new diagnosis of atrial fibrillation and HFrEF with EF 30%. She elected not to proceed with left heart cath due to baseline poor functional status and dementia this was a joint decision with her and her daughter who was bedside. Patient was discharged home with medical therapy and has been doing relatively well. Daughter states she visited her yesterday evening and other than fatigue she had been feeling fine. Overnight apparently developed hypotension and weakness and she was transferred to the emergency department and then later admitted. She is currently on Levophed and milrinone for hypotension. No recent vomiting or diarrhea. She was in A-fib on arrival, rate is currently averaging 110-130. Troponin trending up from 0.05-0.7. Creatinine is 1.7. Chest x-ray is clear. [facility] Disclaimer: The information contained in this section may have been updated after the luis f ent was seen, as this information can be updated by other users. Medical History History of dementia Surgical History History of cochlear implant History of cataract surgery History of back surgery History of cholecystectomy Family History Other No significant family history 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 Smoking Status: Never smoker second hand exposure: No alcohol intake: never current occupational status: retired and other Travel in the last 8 weeks: None household members: family housing: house current occupational exposures/hazards: No caffeine: No Review of Systems Review of Systems Review of systems:: unable to obtain Exam Data for Last 24 hours Vital signs and Labs for Last 24 Hours: Temp Pulse Resp BP Pulse Ox O2 Del Method O2 Flow Rate 97.8 F 103 H 24 72/43 L 97 Nasal Cannula 2 01/22/24 08:00 01/22/24 07:00 01/22/24 07:00 01/22/24 07:00 01/22/24 07:00 01/22/24 07:00 01/22/24 07:00 Laboratory Results - last 24 hr 01/21/24 14:28: WBC 7.4, RBC 4.27, Hgb 13.5, Hct 44.2, MCV 103.6 H, MCH 31.7 H, MCHC 30.6 L, RDW 13.9, Plt Count 208, MPV 9.3, Neut % (Auto) 60.2, Lymph % (Auto) 27.8, [place] % (Auto) 6.8, Eos % (Auto) 4.6, Baso % (Auto) 0.6, Neut # (Auto) 4.5, Lymph # (Auto) 2.1, [place] # (Auto) 0.5, Eos # (Auto) 0.3, Baso # (Auto) 0.1, PT 15.6 H, INR 1.44 H, Sodium 135 L, Potassium 4.9, Chloride 101, Carbon Dioxide 28, Anion Gap 10.9, BUN 32 H, Creatinine 1.80 H, Estimated Creat Clear 27, Estimated GFR 27 L, Est GFR ( Amer) 33 L, Glucose 128 H, Calcium 8.8, Magnesium 1.7, Total Bilirubin 0.8, AST 40 H, ALT 29, Alkaline Phosphatase 54, Troponin I 0.05 H, NT-Pro-B Natriuret Pep 32252 H, Total Protein 6.4, Albumin 3.7, Globulin 2.7, Albumin/Globulin Ratio 1.4, TSH 5.55 H, Thyr oxine (T4) 9.4, HIV 1&2 Antibody Rapid Nonreactive 01/21/24 14:30: Urine Color Yellow, Urine Appearance Clear, Urine pH 6.0, Ur Specific [place] 1.020, Urine Protein 2+ A, Urine Glucose (UA) 2+, Urine Ketones Negative, Urine Blood Trace-l, Urine Nitrate Negative, Urine Bilirubin Negative, Urine Urobilinogen 2.0, Ur Leukocyte Esterase Negative, Urine RBC 5-10, Urine WBC 5-10, Ur Squamous Epith Cells 5-10, Urine Bacteria 1+, Urine Mucus 4+ 01/21/24 15:01: VBG pH 7.40, VBG pCO2 38.8, VBG pO2 68.6 H, VBG HCO3 23.5, VBG Total CO2 24.7, VBG O2 Saturation 92.1 H, VBG Base Excess -1.3, VBG Lactic Acid 3.3 H 01/21/24 17:34: POC Glucose 125 H 01/21/24 17:54: Specimen Source Right radial, O2 % 100, ABG pH 7.46 H, ABG pCO2 21.5 L, ABG pO2 297.1 H, ABG HCO3 14.8 L, ABG Total CO2 15.4 L, ABG O2 Saturation 100, ABG Base Excess -9.1 L, Ilya Test Acceptable, Troponin I 0.05 H 01/21/24 19:48: Lactate 2.7 H 01/21/24 21:22: Troponin I 0.11 H 01/21/24 22:20: Lactate 1.6 01/22/24 05:57: WBC 7.1, RBC 4.26, Hgb 13.7, Hct 44.8, MCV 105.0 H, MCH 32.2 H, MCHC 30.6 L, RDW 13.9, Plt Count 184, MPV 8.5, Neut % (Auto) 65.0, Lymph % (Auto) 25.5, [place] % (Auto) 7.0, Eos % (Auto) 1.8, Baso % (Auto) 0.8, Neut # (Auto) 4.6, Lymph # (Auto) 1.8, [place] # (Auto) 0.5, Eos # (Auto) 0.1, Baso # (Auto) 0.1, Sodium 135 L, Potassium 4.1, Chloride 100, Carbon Dioxide 24, Anion Gap 15.1 H, BUN 33 H, Creatinine 1.70 H, Estimated Creat Clear 28, Estimated GFR 29 L, Est GFR ( Amer) 35 L, Glucose 120 H, Lactate 1.6, Calcium 8.7, Magnesium 1.7 I & O for Last 24 hours: Intake & Output 01/19/24 01/20/24 01/21/24 01/22/24 23:59 23:59 23:59 23:59 Intake Total 102.330 / 102.330 202.072 / 202.072 Output Total 50 / 50 945 / 945 Balance 52.330 / 52.330 -742.928 / -742.928 Weight 160 lb 157 lb 11.2 oz Constitutional Constitutional: no acute distress and cooperative Comments: frail *Routine HEENT Exam Eye: Present PERRL *Routine Respiratory Exam Respiratory: Present CTA bilaterally; Absent accessory muscle use, wheezes or crackles *Routine Cardiovascular Exam Cardiovascular: Present RRR, Normal S1 and Normal S2; Absent murmur, gallop or rubs *Routine Abdominal Exam Abdominal: Present soft; Absent tenderness *Routine Extremities Exam Extremities: Present edema and pulses intact; Absent cyanosis *Routine Skin Exam Skin: Present intact; Absent erythema or wounds *Routine Neurological Exam Neurological: Present alert and oriented X3 Routine Psychiatric Exam Psychiatric: Present cooperative Meds Home Medications and Allergies Home Medications ?Medication ?Instructions ?Recorded ?Confirmed ?Type gabapentin 300 mg capsule 300 mg PO TID 02/25/18 01/21/24 History memantine 10 mg tablet 10 mg PO BID 02/25/18 01/21/24 History omeprazole 20 mg capsule,delayed 20 mg PO HS 06/27/23 01/21/24 History release potassium chloride 10 mEq 10 meq PO DAILY 06/27/23 01/21/24 History capsule,extended release empagliflozin 10 mg tablet 10 mg PO DAILY #30 tabs 12/29/23 01/21/24 Rx (Jardiance) metoprolol succinate 25 mg 25 mg PO DAILY #30 tabs 12/29/23 01/21/24 Rx tablet,extended release 24 hr pravastatin 40 mg tablet 40 mg PO HS #30 tabs 12/29/23 01/21/24 Rx spironolactone 25 mg tablet 25 mg PO BID #60 tabs 12/29/23 01/21/24 Rx polyethylene glycol 3350 17 17 g PO DAILY PRN Constipation 01/21/24 01/21/24 History gram/dose oral powder (Miralax) New Prescriptions to Start Prescriptions: Allergies Allergy/AdvReac Type Severity Reaction Status Date / Time Penicillins [PENICILLINS] Allergy Unknown I-RASH Verified 01/11/24 14:56 Sulfa (Sulfonamide Allergy Unknown I-RASH Verified 01/11/24 14:56 Antibiotics) [SULFA (SULFONAMIDE ANTIBIOTICS)] Assessment and Plan *Assessment and plan (1) Atrial fibrillation with rapid ventricular response: Status: Acute Category: Medical Code(s): I48.91 - Unspecified atrial fibrillation (2) Acute on chronic congestive heart failure: Status: Acute Qualifiers: Heart failure type: unspecified Qualified Code(s): I50.9 - Heart failure, unspecified Category: Medical Code(s): I50.9 - Heart failure, unspecified (3) Acute HFrEF (heart failure with reduced ejection fraction): Status: Acute Category: Medical Code(s): I50.21 - Acute systolic (congestive) heart failure (4) Dementia: Status: Acute Qualifiers: Dementia type: unspecified type Dementia severity: unspecified severity Dementia behavioral or psychological symptom: unspecified whether behavioral, psychotic, or mood disturbance or anxiety Qualified Code(s): F03.90 - Unspecified dementia, unspecified severity, without behavioral disturbance, psychotic disturbance, mood disturbance, and anxiety Category: Medical Code(s): F03.90 - Unspecified dementia, unspecified severity, without behavioral disturbance, psychotic disturbance, mood disturbance, and anxiety (5) NSTEMI (non-ST elevated myocardial infarction): Status: Acute Category: Medical Code(s): I21.4 - Non-ST elevation (NSTEMI) myocardial infarction Plan Cardiogenic Shock - known EF 30%, A-fib RVR, Hypotension - continue pressor support, add Amio for RVR PAF - new dx 12/2023 - RVR on arrival here, BP dropped on Metoprolol - pt on Eliquis at home, resume here at 2.5mg dose (renally adjusted) - DC Metoprolol, start Amio drip due to hypotension HFrEF, ACLSHF - new dx EF 30% in December, pt declined LHC at that time - CXR clear here, trace BLE edema - monitor volume status NSTEMI - elevated troponin here in setting of severe hypotension and a-fib RVR - new dx EF 30% last visit, she declined LHC and is DNR/DNI - Cont Eliquis, Statin, add Plavix Dementia - lives at SNF, daugther is bedside and involved in her care - goals of care - per Hospitalist *Unless pt/family decide they want interventions we will continue with medical therapy only.
[2024-01-22] MEDS: AMIODARONE HCL 900 MG in DEXTROSE 5 % IN WATER 500 ML 33.3 MG IV (09:35)
--- NOTE | 2024-01-22 09:39 | ECG_ITS ---
APPROVED REPORT Exam: Resting ECG HR:109 bpm ECG Measurements Heart Rate 109 AXES QRSd 157 QRS 25 QT 401 T 201 QTc 465 Conclusion ATRIAL FIBRILLATION WITH RAPID VENTRICULAR RESPONSE LEFT BUNDLE BRANCH BLOCK [120+ ms QRS DURATION, 80+ ms Q/S IN V1/V2, 85+ ms R IN I/aVL/V5/V6] ABNORMAL ECG UNCONFIRMED REPORT Electronically signed by : Stephan Tello MD 01/22/2024 15:24:13
[2024-01-22] MEDS: APIXABAN 5MG TABLET 2.5 MG PO ×2 (09:40→21:26)
[2024-01-22] MEDS: CLOPIDOGREL 75MG TAB 75 MG PO (12:43)
--- NOTE | 2024-01-22 15:38 | PC.NURSE ---
amiodarone decreased to 0.5mg/min
--- NOTE | 2024-01-22 17:55 | PC.NURSE ---
pt has slept majority of shift. levo gtt at 14mcg/min, milrinone gtt at 0.3mcg/kg/min, amio gtt at 0.5mg/min. hr has remained above 100bpm, cardiology and [place] aware. weaned to ra, tolerating well with sats at 94%. pt perked up this evening. prior to supper pt requested to get out of bed. assist x2 to chair at bs, pt remained awake and alert to self and ate well, atleast 25% and fed self. pt has verbalized needs t/o the day. cb within reach and bed alarm on while in bed for pt safety. no needs at this time.
[2024-01-22] MEDS: NOREPINEPHRINE BITARTRATE/D5W 8 MG/250 ML PLAST..BAG 22.5 MG IV (18:08)
--- NOTE | 2024-01-22 18:47 | EXP.PN ---
Subjective *Date: 01/22/24 *Time: 18:47 Interval history: Patient is somnolent today, but alert and arousable. Daughter at bedside. Had lengthy C conversation with daughter today who would really like to make her mother hospice today, but she really wants to talk it over with her family before making the decision. She does not want to escalate care with anything more than what we are already doing, I suggested switching amiodarone to digoxin to help with A-fib RVR and inotropy he and she declined. DNR/DNI and no cardioversion. Exam Data for Last 24 hours Vital signs and Labs for Last 24 Hours: Temp Pulse Resp BP Pulse Ox O2 Del Method O2 Flow Rate 99.0 F 115 H 22 107/61 L 94 L Room Air 2 01/22/24 16:00 01/22/24 17:59 01/22/24 17:59 01/22/24 17:59 01/22/24 17:59 01/22/24 18:42 01/22/24 13:05 Laboratory Results - last 24 hr 01/21/24 14:30: Urine Color Yellow, Urine Appearance Clear, Urine pH 6.0, Ur Specific [place] 1.020, Urine Protein 2+ A, Urine Glucose (UA) 2+, Urine Ketones Negative, Urine Blood Trace-l, Urine Nitrate Negative, Urine Bilirubin Negative, Urine Urobilinogen 2.0, Ur Leukocyte Esterase Negative, Urine RBC 5-10, Urine WBC 5-10, Ur Squamous Epith Cells 5-10, Urine Bacteria 1+, Urine Mucus 4+ 01/21/24 19:48: Lactate 2.7 H 01/21/24 21:22: Troponin I 0.11 H 01/21/24 22:20: Lactate 1.6 01/22/24 05:57: WBC 7.1, RBC 4.26, Hgb 13.7, Hct 44.8, MCV 105.0 H, MCH 32.2 H, MCHC 30.6 L, RDW 13.9, Plt Count 184, MPV 8.5, Neut % (Auto) 65.0, Lymph % (Auto) 25.5, [place] % (Auto) 7.0, Eos % (Auto) 1.8, Baso % (Auto) 0.8, Neut # (Auto) 4.6, Lymph # (Auto) 1.8, [place] # (Auto) 0.5, Eos # (Auto) 0.1, Baso # (Auto) 0.1, Sodium 135 L, Potassium 4.1, Chloride 100, Carbon Dioxide 24, Anion Gap 15.1 H, BUN 33 H, Creatinine 1.70 H, Estimated Creat Clear 28, Estimated GFR 29 L, Est GFR ( Amer) 35 L, Glucose 120 H, Lactate 1.6, Calcium 8.7, Magnesium 1.7 01/22/24 08:48: Troponin I 0.74 H I & O for Last 24 hours: Intake & Output 01/19/24 01/20/24 01/21/24 01/22/24 23:59 23:59 23:59 23:59 Intake Total 102.330 / 102.330 823.635 / 823.635 Output Total 50 / 50 1545 / 1545 Balance 52.330 / 52.330 -721.365 / -721.365 Weight 72.575 kg 71.5 kg Microbiology Reports for the Last 24 Hours: Microbiology 01/21/24 15:00 Blood Blood Culture - Preliminary NO GROWTH AFTER 24 HOURS 01/21/24 15:06 Blood Blood Culture - Preliminary NO GROWTH AFTER 24 HOURS Constitutional Constitutional: no acute distress Comments: Frail. *Routine HEENT Exam Head: Present normocephalic Eye: Present EOMI and PERRL ENT: Present mucous membranes moist *Routine Neck Exam Neck: Present supple; Absent lymphadenopathy *Routine Respiratory Exam Respiratory: Present CTA bilaterally *Routine Cardiovascular Exam Cardiovascular: Present RRR *Routine Abdominal Exam Abdominal: Present soft and normoactive bowel sounds; Absent tenderness *Routine Extremities Exam Extremities: Present edema; Absent cyanosis or clubbing *Routine Skin Exam Skin: Present warm; Absent rash *Routine Neurological Exam Neurological: Present alert and oriented X3 Assessment and Plan *Assessment and plan (1) Cardiogenic shock: Status: Acute Category: Medical Code(s): R57.0 - Cardiogenic shock (2) Acute on chronic congestive heart failure: Status: Acute Qualifiers: Heart failure type: unspecified Qualified Code(s): I50.9 - Heart failure, unspecified Category: Medical Code(s): I50.9 - Heart failure, unspecified Plan Ms. Melinda Hidalgo is a 83-year-old female with a medical history significant for A-fib, HFrEF (LVEF 20-25% 12/26/2023), dementia, progressive hearing loss who presents from nursing facility for weakness and hypotension. Daughter states patient has been weak for the past day, which became worse today. Patient is dementia at baseline and is unable to answer most questions appropriately. She also has significant hearing loss requiring cochlear implant. On arrival, patient's blood pressure was in the 80s over 50s heart rate in the 120s. Creatinine 1.8 (baseline 0.6), BNP 12,400, troponin 0.05. Patient was given 1 L normal saline bolus and contacted cardiology who recommended metoprolol tartrate 50 mg in admission. Case discussed with ED provider and decision was made to admit patient for A-fib RVR, acute on chronic HFrEF. #Cardiogenic shock #HFrEF exacerbation #A-fib RVR ? Patient was tachycardic 120s, hypotensive 80s over 50s on admission and alert when she reached the floor. ? However, she became more weak and endorsed increased work of breathing when she came to the floor. ? Repeat CXR revealed pulmonary edema. IV Lasix 40 mg given. ? Dr. Faust contacted, recommended starting milrinone. ? Continue IV milrinone 0.2 mcg/kg/min. Patient has clinically improved since starting. ? Continue Levophed for pressure support. Pressures have improved. ? IV amiodarone started for A-fib RVR. ? Therapeutic Lovenox. ? Avoid IV fluids given volume overload. ? Consider more diuresis if needed. ? Cardiology consulted, appreciate recommendations and efforts. ? Follow-up limited echo. ? Had lengthy [facility] conversation with daughter today who would really like to make her mother hospice today, but she really wants to talk it over with her family before making the decision. She does not want to escalate care with anything more than what we are already doing, I suggested switching amiodarone to digoxin to help with A-fib RVR and inotropy he and she declined. DNR/DNI and no cardioversion. Hope to have final decision tomorrow. DNR/DNI
--- NOTE | 2024-01-22 19:17 | CA_ITS ---
APPROVED REPORT EXAM: Limited 2D Echocardiogram [employer]: Keysha Faria RDCS Ht: 5 ft 6 in Wt: 160lbs BSA: 1.82 BP: 100/66 mmHg Indications: CHRONIC AF,CHF F/U FALIURE M-Mode Dimensions RVDd 0.52 cm (0.9-2.6) LA Diam 4.23 cm (1.9-4.0) LVDd 7.51 cm (3.5-5.7) LVDs 6.73 cm (3.5-5.7) IVSd 0.60 cm (0.6-1.1) PWd 0.60 cm (0.6-1.1) EF (Teich) 21.90% FS 10.40% EDV (Teich) 299.20 mL ESV (Teich) 233.70 mL Other Information Study Quality: Fair Conclusion This is a limited TTE to evaluate for LVEF. Limited windows were obtained. The left ventricle is normal in size. There is proximal increase in LV wall thickness, along with thinning of the mid to distal septal LV ovalle. Severe global hypokinesis is present. The septal, inferoseptal, and anteroseptal LV ovalle are akinetic. LVEF is 20%. Compared to prior study from 12/25/2023, the LV systolic function is unchanged. Electronically signed by : Oralia Rodriguez MD 01/22/2024 16:54:05
[2024-01-22] MEDS: PANTOPRAZOLE 40MG TABLET 40 MG PO (21:26)
[2024-01-22] MEDS: PRAVASTATIN 40MG TAB 40 MG PO (21:28)
[2024-01-23] VITALS (28 sets, daily range): BP systolic 88–128; BP diastolic 45–93; PULSE 100–160; RESP 14–40; TEMP 36.4–37.3; O2SAT 90–94; BMI 23.9
[2024-01-23] MEDS: MILRINONE LACTATE 20 MG in 0.9 % SODIUM CHLORIDE 80 ML 6.53 MG IV ×2 (00:27→23:25)
[2024-01-23] MEDS: AMIODARONE HCL 900 MG in DEXTROSE 5 % IN WATER 500 ML 33.3 MG IV (04:00)
[2024-01-23] MEDS: NOREPINEPHRINE BITARTRATE/D5W 8 MG/250 ML PLAST..BAG 22.5 MG IV ×2 (04:45→16:23)
[2024-01-23 06:16] LABS: HCV Ab Non Reactive (Non Reactive)
[2024-01-23 07:05] LABS: Basophils # 0.1 K/mm3 (0-0.2); Basophils % 1.2 % (0.1-2.0); Eosinophils # 0.1 K/mm3 (0.0-0.4); Eosinophils % 1.7 % (0.1-12.0); Hematocrit 40.4 % (37.0-47.0); Hemoglobin 13.2 g/dL (12.2-16.2); Lymphocytes # 1.2 K/mm3 (0.7-4.5); Lymphocytes % 15.6 % (10-50); Mean Corpuscular HGB Conc 32.7 g/dL (31.8-35.4); Mean Corpuscular Hemoglobin 32.2 pg (27.0-31.2); Mean Corpuscular Volume 98.5 fl (81-99); Monocytes # 0.7 K/mm3 (0.1-1.0); Monocytes % 9.8 % (1.7-9.3); Neutrophils # 5.4 K/mm3 (1.8-7.8); Neutrophils % 71.6 % (37.0-80.0); Platelet Count 170 K/mm3 (142-424); Red Blood Count 4.11 M/mm3 (4.20-5.40); Red Cell Distribution Width 14.2 % (11.5-17.5); White Blood Count 7.5 K/mm3 (4.8-10.8)
[2024-01-23 07:11] LABS: Chloride 99 mmol/L (98-107); Potassium 3.3 mmoL/L (3.5-5.1); Sodium 133 mmol/L (136-145)
[2024-01-23 07:14] LABS: Anion Gap 11.3 mEq/L (5-15); Blood Urea Nitrogen 22 mg/dl (7-17); Carbon Dioxide 26 mmol/L (22.0-30.0); Creatinine Clearance Estimated 35 mL/min (50-200); Estimated Glomerular Filt Rate 39 ml/min (>60); GFR (African American) 47 ML/MIN (>60)
[2024-01-23 07:15] LABS: Calcium 8.7 mg/dl (8.4-10.2); Glucose 148 mg/dl (74-100); Magnesium 1.5 mg/dl (1.6-2.3)
[2024-01-23] MEDS: APIXABAN 5MG TABLET 2.5 MG PO ×2 (09:07→20:38)
[2024-01-23] MEDS: EMPAGLIFLOZIN 10MG TABLET 10 MG PO (09:07)
[2024-01-23] MEDS: MEMANTINE 10MG TABLET 10 MG PO ×2 (09:07→20:38)
[2024-01-23] MEDS: GABAPENTIN 300MG CAPSULE 300 MG PO ×3 (09:07→20:37)
[2024-01-23] MEDS: MAGNESIUM SULFATE IN WATER 2 GM/50 ML PIGGYBACK IV ×2 (09:07→12:14)
[2024-01-23] MEDS: CLOPIDOGREL 75MG TAB 75 MG PO (09:07)
[2024-01-23] MEDS: KCl 20mEq/100ml 100 ML 50 MEQ IV ×2 (09:45→13:40)
[2024-01-23] MEDS: DIGOXIN 0.25MG/ML 2ML AMPUL 250 MCG IV ×2 (15:11→20:38)
--- NOTE | 2024-01-23 15:31 | P.PN_ITS ---
Subjective *Date: 01/23/24 *Time: 15:31 Interval history: Patient is sitting comfortably in bed this afternoon without acute concerns or distress. More conversational but still tachycardic to the 140s. Exam Data for Last 24 hours Vital signs and Labs for Last 24 Hours: Temp Pulse Resp BP Pulse Ox O2 Del Method O2 Flow Rate 97.6 F 137 H 20 98/55 L 93 L Room Air 2 01/23/24 11:25 01/23/24 15:11 01/23/24 15:00 01/23/24 15:00 01/23/24 15:00 01/23/24 15:00 01/22/24 13:05 Laboratory Results - last 24 hr 01/21/24 14:28: Hepatitis C Antibody Non reactive 01/23/24 06:20: WBC 7.5, RBC 4.11 L, Hgb 13.2, Hct 40.4, MCV 98.5, MCH 32.2 H, MCHC 32.7, RDW 14.2, Plt Count 170, MPV 9.0, Neut % (Auto) 71.6, Lymph % (Auto) 15.6, [place] % (Auto) 9.8 H, Eos % (Auto) 1.7, Baso % (Auto) 1.2, Neut # (Auto) 5.4, Lymph # (Auto) 1.2, [place] # (Auto) 0.7, Eos # (Auto) 0.1, Baso # (Auto) 0.1, Sodium 133 L, Potassium 3.3 L, Chloride 99, Carbon Dioxide 26, Anion Gap 11.3, BUN 22 H D, Creatinine 1.30 H D, Estimated Creat Clear 35, Estimated GFR 39 L, Est GFR ( Amer) 47 L D, Glucose 148 H, Calcium 8.7, Magnesium 1.5 L D I & O for Last 24 hours: Intake & Output 01/20/24 01/21/24 01/22/24 01/23/24 23:59 23:59 23:59 23:59 Intake Total 102.330 / 235.866 7958.635 / 1619.635 962.478 / 962.478 Output Total 50 / 50 1945 / 2295 1000 / 1000 Balance 52.330 / 52.330 -382.365 / -675.365 -37.522 / -37.522 Weight 72.575 kg 71.5 kg 67.614 kg Microbiology Reports for the Last 24 Hours: Microbiology 01/21/24 15:06 Blood Blood Culture - Preliminary NO GROWTH AFTER 48 HOURS 01/21/24 15:00 Blood Blood Culture - Preliminary NO GROWTH AFTER 48 HOURS Constitutional Constitutional: no acute distress Comments: Frail. *Routine HEENT Exam Head: Present normocephalic Eye: Present EOMI and PERRL ENT: Present mucous membranes moist *Routine Neck Exam Neck: Present supple; Absent lymphadenopathy *Routine Respiratory Exam Respiratory: Present CTA bilaterally *Routine Cardiovascular Exam Cardiovascular: Present tachycardia and irregular rhythm *Routine Abdominal Exam Abdominal: Present soft and normoactive bowel sounds; Absent tenderness *Routine Extremities Exam Extremities: Present edema; Absent cyanosis or clubbing *Routine Skin Exam Skin: Present warm; Absent rash *Routine Neurological Exam Neurological: Present alert Assessment and Plan *Assessment and plan (1) Cardiogenic shock: Status: Acute Category: Medical Code(s): R57.0 - Cardiogenic shock (2) Acute on chronic congestive heart failure: Status: Acute Qualifiers: Heart failure type: unspecified Qualified Code(s): I50.9 - Heart failure, unspecified Category: Medical Code(s): I50.9 - Heart failure, unspecified Plan Ms. Melinda Hidalgo is a 83-year-old female with a medical history significant for A-fib, HFrEF (LVEF 20-25% 12/26/2023), dementia, progressive hearing loss who presents from nursing facility for weakness and hypotension. Daughter states patient has been weak for the past day, which became worse today. Patient is dementia at baseline and is unable to answer most questions appropriately. She also has significant hearing loss requiring cochlear implant. On arrival, patient's blood pressure was in the 80s over 50s heart rate in the 120s. Creatinine 1.8 (baseline 0.6), BNP 12,400, troponin 0.05. Patient was given 1 L normal saline bolus and contacted cardiology who recommended metoprolol tartrate 50 mg in admission. Case discussed with ED provider and decision was made to admit patient for A-fib RVR, acute on chronic HFrEF. #Cardiogenic shock #HFrEF exacerbation #A-fib RVR ? Patient was tachycardic 130s, hypotensive 80s over 50s on admission and alert when she reached the floor. ? However, she became more weak and endorsed increased work of breathing when she came to the floor. ? Repeat CXR revealed pulmonary edema. IV Lasix 40 mg given. ? Dr. Faust contacted, recommended starting milrinone. ? Continue IV milrinone 0.2 mcg/kg/min. Patient has clinically improved since starting. ? Continue Levophed for pressure support. Pressures have improved. ? Continue Eliquis 2.5 mg twice daily. ? Avoid IV fluids given volume overload. ? Consider more diuresis if needed. ? Cardiology consulted, appreciate recommendations and efforts. ? Follow-up limited echo. ? Started IV digoxin, discontinued amiodarone drip for A-fib. Daughter states if digoxin is not efficacious for A-fib RVR, she will likely make patient comfort care on Thursday. DNR/DNI and no cardioversion. She does not want to also pursue an [facility] ischemic evaluation of HFrEF. ? Given IV digoxin 250 mcg, next dose in 6 hours. Then will start maintenance dose tomorrow morning. ? Started metoprolol tartrate 25mg every 8 hours. DNR/DNI
[2024-01-23] MEDS: METOPROLOL TARTRATE 25MG TABLET 25 MG PO (16:19)
--- NOTE | 2024-01-23 16:24 | PC.NURSE ---
Pt is awake in bed visiting with friends. She is alert to self. Follows directions. No complaints stated. Amiodarone was DC this afternoon. New orders received to give IV Digoxin and PO Metoprolol. Pt remains Levophed gtt currently infusing @ 12 mcg/min. Milrinone @ 0.3mcg/kg/min. New IV placed to LFA #22. F/C draing to bedside with good urine output this shift. No BM. HR continues to tachycardic. BP stable on Levophed. Pt remains on RA. Call light within reach.
[2024-01-23] MEDS: PANTOPRAZOLE 40MG TABLET 40 MG PO (20:38)
[2024-01-23] MEDS: PRAVASTATIN 40MG TAB 40 MG PO (20:38)
--- NOTE | 2024-01-23 21:07 | XR_ITS ---
PROCEDURE INFORMATION: Exam: XR Chest Exam date and time: 01/23/2024 9:29 PM Age: 83 years old Clinical indication: Shortness of breath; Additional info: SOB TECHNIQUE: Imaging protocol: Radiologic exam of the chest. Views: 1 view. COMPARISON: CR XR CHEST PORTABLE 01/21/2024 5:39 PM FINDINGS: Lungs: Bilateral airspace disease which could reflect edema versus pneumonia. Pleural spaces: Unremarkable. No pleural effusion. No pneumothorax. Heart/Mediastinum: Unremarkable. No cardiomegaly. Bones/joints: Unremarkable. IMPRESSION: Bilateral airspace disease which could reflect edema versus pneumonia.
[2024-01-23] MEDS: FUROSEMIDE 40MG/4ML VIAL 40 MG IV (22:20)
[2024-01-24] VITALS (25 sets, daily range): BP systolic 89–114; BP diastolic 43–70; PULSE 80–120; RESP 15–26; TEMP 36.3–37.3; O2SAT 91–96; BMI 23.6
[2024-01-24] MEDS: NOREPINEPHRINE BITARTRATE/D5W 8 MG/250 ML PLAST..BAG 18.75 MG IV (03:26)
--- NOTE | 2024-01-24 05:11 | PC.NURSE ---
patient had a good night once we got her breathing better. Patient is still on 3L NC sating low 90s but is breathing 20 breaths a min and not 40 like the beginning of shift. She has been turned q2hrs. She did have a BM this AM and got cleaned up from that. She brushed her teeth before bed tonight and has rested well.
[2024-01-24 07:17] LABS: Basophils # 0.1 K/mm3 (0-0.2); Basophils % 0.8 % (0.1-2.0); Eosinophils # 0.2 K/mm3 (0.0-0.4); Eosinophils % 1.9 % (0.1-12.0); Hematocrit 42.9 % (37.0-47.0); Hemoglobin 14.2 g/dL (12.2-16.2); Lymphocytes # 1.6 K/mm3 (0.7-4.5); Lymphocytes % 17.5 % (10-50); Mean Corpuscular Hemoglobin 31.9 pg (27.0-31.2); Mean Corpuscular Volume 96.5 fl (81-99); Mean Platelet Volume 8.7 fl (7.4-10.4); Monocytes # 0.7 K/mm3 (0.1-1.0); Monocytes % 7.5 % (1.7-9.3); Neutrophils # 6.5 K/mm3 (1.8-7.8); Neutrophils % 72.2 % (37.0-80.0); Platelet Count 177 K/mm3 (142-424); Red Blood Count 4.45 M/mm3 (4.20-5.40); Red Cell Distribution Width 14.3 % (11.5-17.5)
[2024-01-24 07:53] LABS: Chloride 100 mmol/L (98-107); Potassium 3.7 mmoL/L (3.5-5.1); Sodium 136 mmol/L (136-145)
[2024-01-24 07:56] LABS: Anion Gap 12.7 mEq/L (5-15); Calcium 9.1 mg/dl (8.4-10.2); Carbon Dioxide 27 mmol/L (22.0-30.0); Glucose 136 mg/dl (74-100); Magnesium 2.2 mg/dl (1.6-2.3)
[2024-01-24 08:01] LABS: Blood Urea Nitrogen 17 mg/dl (7-17); Creatinine Clearance Estimated 37 mL/min (50-200); Estimated Glomerular Filt Rate 43 ml/min (>60); GFR (African American) 52 ML/MIN (>60)
[2024-01-24] MEDS: APIXABAN 5MG TABLET 2.5 MG PO ×2 (08:22→20:07)
[2024-01-24] MEDS: GABAPENTIN 300MG CAPSULE 300 MG PO ×3 (08:23→20:07)
[2024-01-24] MEDS: CLOPIDOGREL 75MG TAB 75 MG PO (08:23)
[2024-01-24] MEDS: MEMANTINE 10MG TABLET 10 MG PO ×2 (08:23→20:07)
[2024-01-24] MEDS: EMPAGLIFLOZIN 10MG TABLET 10 MG PO (09:48)
[2024-01-24] MEDS: DIGOXIN 0.25MG TABLET 250 MCG PO (11:18)
[2024-01-24] MEDS: FUROSEMIDE 40 MG TABLET PO (11:18)
[2024-01-24] MEDS: MILRINONE LACTATE 20 MG in 0.9 % SODIUM CHLORIDE 80 ML 6.53 MG IV (14:47)
--- NOTE | 2024-01-24 16:30 | PC.NURSE ---
Pt is more drowsy today. Has had some periods of confusion. Currently napping at this time. Appetite has been fair today. Assistance has been needed. VS currently stable. Hr remains afib. Levophed titrated per protocol. Currently infusing @ 3 mcg/min. Milrinone is infusing @ 0.3 mcg/kg/min. F/C draining to bedside with clear, yellow urine. 1900 ml total urine output this shift. No BM. Family has been at bedside. Daughter states she will be back tomorrow. Call light within reach. Safety measures in place.
--- NOTE | 2024-01-24 17:07 | PC.NURSE ---
Per JOSE LUIS Long for MAP to be 60 - 65
[2024-01-24] MEDS: PRAVASTATIN 40MG TAB 40 MG PO (20:07)
[2024-01-24] MEDS: PANTOPRAZOLE 40MG TABLET 40 MG PO (20:07)
--- NOTE | 2024-01-24 22:11 | P.PN_ITS ---
Subjective *Date: 01/24/24 *Time: 22:11 Interval history: Patient was laying in bed comforatbly this morning without acute distress. No chest pain, SOB. Exam Data for Last 24 hours Vital signs and Labs for Last 24 Hours: Temp Pulse Resp BP Pulse Ox O2 Del Method O2 Flow Rate 97.7 F 97 H 20 94/55 L 92 L Nasal Cannula 2 01/24/24 20:00 01/24/24 22:00 01/24/24 22:00 01/24/24 22:00 01/24/24 22:00 01/24/24 22:00 01/24/24 22:00 Laboratory Results - last 24 hr 01/24/24 07:00: WBC 9.0, RBC 4.45, Hgb 14.2, Hct 42.9, MCV 96.5, MCH 31.9 H, MCHC 33.0, RDW 14.3, Plt Count 177, MPV 8.7, Neut % (Auto) 72.2, Lymph % (Auto) 17.5, [place] % (Auto) 7.5, Eos % (Auto) 1.9, Baso % (Auto) 0.8, Neut # (Auto) 6.5, Lymph # (Auto) 1.6, [place] # (Auto) 0.7, Eos # (Auto) 0.2, Baso # (Auto) 0.1, Sodium 136, Potassium 3.7, Chloride 100, Carbon Dioxide 27, Anion Gap 12.7, BUN 17, Creatinine 1.20 H, Estimated Creat Clear 37, Estimated GFR 43 L, Est GFR ( Amer) 52 L, Glucose 136 H, Calcium 9.1, Magnesium 2.2 D I & O for Last 24 hours: Intake & Output 01/21/24 01/22/24 01/23/24 01/24/24 23:59 23:59 23:59 23:59 Intake Total 102.330 / 084.168 2645.635 / 3978.954 9877.166 / 2220.166 / Output Total 50 / 50 1945 / 2295 2650 / 3250 4700 / 4700 Balance 52.330 / 52.330 -382.365 / -675.365 -429.834 / -1029.834 -2682.732 / - 2682.732 Weight 72.575 kg 71.5 kg 67.614 kg 66.769 kg Constitutional Constitutional: no acute distress Comments: Frail. *Routine HEENT Exam Head: Present normocephalic Eye: Present EOMI and PERRL ENT: Present mucous membranes moist *Routine Neck Exam Neck: Present supple; Absent lymphadenopathy *Routine Respiratory Exam Respiratory: Present CTA bilaterally *Routine Cardiovascular Exam Cardiovascular: Present tachycardia and irregular rhythm *Routine Abdominal Exam Abdominal: Present soft and normoactive bowel sounds; Absent tenderness *Routine Extremities Exam Extremities: Present edema; Absent cyanosis or clubbing Comments: 2+ pitting LE edema. *Routine Skin Exam Skin: Present warm; Absent rash *Routine Neurological Exam Neurological: Present alert Assessment and Plan *Assessment and plan (1) Cardiogenic shock: Status: Acute Category: Medical Code(s): R57.0 - Cardiogenic shock (2) Acute on chronic congestive heart failure: Status: Acute Qualifiers: Heart failure type: unspecified Qualified Code(s): I50.9 - Heart fa ilure, unspecified Category: Medical Code(s): I50.9 - Heart failure, unspecified Plan Ms. Melinda Hidalgo is a 83-year-old female with a medical history significant for A-fib, HFrEF (LVEF 20-25% 12/26/2023), dementia, progressive hearing loss who presents from nursing facility for weakness and hypotension. Daughter states patient has been weak for the past day, which became worse today. Patient is dementia at baseline and is unable to answer most questions appropriately. She also has significant hearing loss requiring cochlear implant. On arrival, patient's blood pressure was in the 80s over 50s heart rate in the 120s. Creatinine 1.8 (baseline 0.6), BNP 12,400, troponin 0.05. Patient was given 1 L normal saline bolus and contacted cardiology who recommended metoprolol tartrate 50 mg in admission. Case discussed with ED provider and decision was made to admit patient for A-fib RVR, acute on chronic HFrEF. #Cardiogenic shock #HFrEF exacerbation #A-fib RVR ? Patient was tachycardic 130s, hypotensive 80s over 50s on admission and alert when she reached the floor. ? However, she became more weak and endorsed increased work of breathing when she came to the floor. ? Repeat CXR revealed pulmonary edema. IV Lasix 40 mg given. ? Dr. Faust contacted, recommended starting milrinone. - After discussing with Dr. Faust, discontinued milrinone to help with hypotension and wean off Levophed. - Transitioned to PO digoxin 250mcg daily after IV bolus loading. ? Continue Levophed for pressure support. Wean as tolerated. - Started PO Lasix 40mg daily. Patient had about 3L output overnight with diuresis. ? Continue Eliquis 2.5 mg twice daily. ? Avoid IV fluids given volume overload. ? Consider more diuresis if needed. ? Cardiology consulted, appreciate recommendations and efforts. ? Follow-up limited echo. - Daughter is considering hospice care on Thursday. DNR/DNI and no cardioversion. She does not want to also pursue an [facility] ischemic evaluation of HFrEF or other invasive interventions. DNR/DNI
[2024-01-25] VITALS (16 sets, daily range): BP systolic 86–121; BP diastolic 50–70; PULSE 92–116; RESP 12–22; TEMP 36.6–37.2; O2SAT 93–96; BMI 23.7
[2024-01-25] MEDS: NOREPINEPHRINE BITARTRATE/D5W 8 MG/250 ML PLAST..BAG 5.63 MG IV (01:29)
--- NOTE | 2024-01-25 04:35 | PC.NURSE ---
Patient has no acute changes since shift change. She has rested well throughout the shift and remained on Norepi per JUN titration. Adequate urinary output via willson. VSS, NAD
[2024-01-25 06:54] LABS: Basophils # 0.1 K/mm3 (0-0.2); Basophils % 0.6 % (0.1-2.0); Eosinophils # 0.3 K/mm3 (0.0-0.4); Eosinophils % 3.2 % (0.1-12.0); Hemoglobin 14.3 g/dL (12.2-16.2); Lymphocytes # 1.1 K/mm3 (0.7-4.5); Lymphocytes % 13.2 % (10-50); Mean Corpuscular HGB Conc 33.3 g/dL (31.8-35.4); Mean Corpuscular Hemoglobin 31.8 pg (27.0-31.2); Mean Corpuscular Volume 95.4 fl (81-99); Mean Platelet Volume 8.8 fl (7.4-10.4); Monocytes # 0.8 K/mm3 (0.1-1.0); Monocytes % 9.3 % (1.7-9.3); Neutrophils # 6.4 K/mm3 (1.8-7.8); Neutrophils % 73.8 % (37.0-80.0); Platelet Count 184 K/mm3 (142-424); Red Cell Distribution Width 14.5 % (11.5-17.5); White Blood Count 8.7 K/mm3 (4.8-10.8)
[2024-01-25 07:29] LABS: Chloride 97 mmol/L (98-107); Potassium 3.1 mmoL/L (3.5-5.1); Sodium 135 mmol/L (136-145)
[2024-01-25 07:31] LABS: Blood Urea Nitrogen 14 mg/dl (7-17); Creatinine Clearance Estimated 41 mL/min (50-200); Estimated Glomerular Filt Rate 47 ml/min (>60); GFR (African American) 57 ML/MIN (>60)
[2024-01-25 07:32] LABS: Anion Gap 10.1 mEq/L (5-15); Carbon Dioxide 31 mmol/L (22.0-30.0); Glucose 119 mg/dl (74-100); Magnesium 1.7 mg/dl (1.6-2.3)
[2024-01-25] MEDS: DIGOXIN 0.25MG TABLET 250 MCG PO (08:50)
[2024-01-25] MEDS: APIXABAN 5MG TABLET 2.5 MG PO ×2 (08:50→21:18)
[2024-01-25] MEDS: MEMANTINE 10MG TABLET 10 MG PO ×2 (08:50→21:18)
[2024-01-25] MEDS: FUROSEMIDE 40 MG TABLET PO (08:50)
[2024-01-25] MEDS: CLOPIDOGREL 75MG TAB 75 MG PO (08:50)
[2024-01-25] MEDS: EMPAGLIFLOZIN 10MG TABLET 10 MG PO (08:50)
[2024-01-25] MEDS: GABAPENTIN 300MG CAPSULE 300 MG PO ×3 (08:50→21:18)
--- NOTE | 2024-01-25 10:04 | P.PN_ITS ---
Subjective Subjective Date: 01/25/24 Time: 15:53 Principal diagnosis: A. fib with RVR, Cardiogenic shock Exam Data for Last 24 hours Vital signs and Labs for Last 24 Hours: Temp Pulse Resp BP Pulse Ox O2 Del Method O2 Flow Rate 98.5 F 108 H 20 121/62 93 L Nasal Cannula 3 01/25/24 08:00 01/25/24 09:00 01/25/24 09:00 01/25/24 09:00 01/25/24 09:00 01/25/24 09:00 01/25/24 09:00 Laboratory Results - last 24 hr 01/25/24 05:46: WBC 8.7, RBC 4.50, Hgb 14.3, Hct 43.0, MCV 95.4, MCH 31.8 H, M CHC 33.3, RDW 14.5, Plt Count 184, MPV 8.8, Neut % (Auto) 73.8, Lymph % (Auto) 13.2, [place] % (Auto) 9.3, Eos % (Auto) 3.2, Baso % (Auto) 0.6, Neut # (Auto) 6.4, Lymph # (Auto) 1.1, [place] # (Auto) 0.8, Eos # (Auto) 0.3, Baso # (Auto) 0.1, Sodium 135 L, Potassium 3.1 L, Chloride 97 L, Carbon Dioxide 31 H, Anion Gap 10.1, BUN 14, Creatinine 1.10 H, Estimated Creat Clear 41, Estimated GFR 47 L, Est GFR ( Amer) 57 L, Glucose 119 H, Calcium 9.0, Magnesium 1.7 D I & O for Last 24 hours: Intake & Output 01/22/24 01/23/24 01/24/24 01/25/24 11:59 11:59 11:59 11:59 Intake Total 414.715 / 088.816 5677.728 / 2262.728 2157.688 / 2275.285 1233.449 / 1233.449 Output Total 1175 / 1205 1820 / 1970 4800 / 5000 2130 / 2130 Balance -760.285 / -790.285 392.728 / 292.728 -2642.312 / -2724.715 -896.551 / - 896.551 Weight 157 lb 11.2 oz 149 lb 1 oz 147 lb 3.2 oz 147 lb 0.773 oz Progress Note: A&P Assessment and plan (1) Cardiogenic shock: Status: Acute (2) Acute on chronic congestive heart failure: Status: Acute Assessment and Plan Assessment and Plan for All Diagnoses:: Cardiogenic Shock - known EF 20-30%, A-fib RVR, Hypotension - currently off pressor support with BP around 100 mm Hg PAF - new dx 12/2023 - RVR on arrival here, BP dropped on Metoprolol, milrinone and amiodarone - rate around 100-110 bpm on digoxin - pt on Eliquis at 2.5mg dose (renally adjusted) HFrEF, Acute on chronic - new dx EF 20-30% in December, pt/family declined LHC at that time - CXR clear here, trace BLE edema - monitor volume status NSTEMI - elevated troponin here (max 0.74) in setting of severe hypotension and a-fib RVR - new dx EF 20-30% last visit, she declined LHC and is DNR/DNI - Cont Eliquis, Statin, add Plavix Dementia - lives at SNF, avinashther is bedside and involved in her care - goals of care - per Hospitalist CASI - Improving with Cr down to 1.1 today Hypokalemia - defer to hospitalist DNR/DNI - family has decided on Hospice Nothing further to add. Please call if needed.
--- NOTE | 2024-01-25 11:06 | XR_ITS ---
FINAL REPORT CLINICAL HISTORY: hypoxic COMPARISON: 01/23/2024 FINDINGS: A single portable view of the chest was obtained. The heart size is within normal limits. Pulmonary vascular congestion has improved from the prior study. The mediastinum is within normal limits. Worsening left base opacities are consistent with worsening atelectasis or pneumonia. The bony thorax is intact. IMPRESSION: Worsening atelectasis or pneumonia. Improved pulmonary vascular congestion. Reviewed, Interpreted and Dictated by Barron Carrasco III, MD Transcribed by Kayleigh Friedman Authenticated and [facility]
--- NOTE | 2024-01-25 18:42 | PC.NURSE ---
PT HAS DONE FAIR SINCE I TOOK OVER PT CARE. NO COMPLAINTS THIS SHIFT. VSS.
[2024-01-25] MEDS: PRAVASTATIN 40MG TAB 40 MG PO (21:18)
[2024-01-25] MEDS: PANTOPRAZOLE 40MG TABLET 40 MG PO (21:21)
--- NOTE | 2024-01-25 23:40 | P.PN_ITS ---
Subjective *Date: 01/25/24 *Time: 08:00 Interval history: Patient is lying in bed comforatbly without acute distress. No chest pain, SOB. Exam Data for Last 24 hours Vital signs and Labs for Last 24 Hours: Temp Pulse Resp BP Pulse Ox O2 Del Method O2 Flow Rate 99.0 F 104 H 16 113/50 L 93 L Room Air 2 01/25/24 19:58 01/25/24 20:00 01/25/24 19:58 01/25/24 19:58 01/25/24 20:00 01/25/24 21:00 01/25/24 19:58 Laboratory Results - last 24 hr 01/25/24 05:46: WBC 8.7, RBC 4.50, Hgb 14.3, Hct 43.0, MCV 95.4, MCH 31.8 H, MCHC 33.3, RDW 14.5, Plt Count 184, MPV 8.8, Neut % (Auto) 73.8, Lymph % (Auto) 13.2, [place] % (Auto) 9.3, Eos % (Auto) 3.2, Baso % (Auto) 0.6, Neut # (Auto) 6.4, Lymph # (Auto) 1.1, [place] # (Auto) 0.8, Eos # (Auto) 0.3, Baso # (Auto) 0.1, Sodium 135 L, Potassium 3.1 L, Chloride 97 L, Carbon Dioxide 31 H, Anion Gap 10.1, BUN 14, Creatinine 1.10 H, Estimated Creat Clear 41, Estimated GFR 47 L, Est GFR ( Amer) 57 L, Glucose 119 H, Calcium 9.0, Magnesium 1.7 D I & O for Last 24 hours: Intake & Output 01/22/24 01/23/24 01/24/24 01/25/24 23:59 23:59 23:59 23:59 Intake Total 1562.635 / 7204.939 7746.166 / 2220.166 2044.803 / 2044.803 208.646 / 208.646 Output Total 1945 / 2295 2650 / 3250 4740 / 4790 2140 / 2140 Balance -382.365 / -675.365 -429.834 / -1029.834 -2695.197 / -2745.197 -1930.354 / -1930.354 Weight 71.5 kg 67.614 kg 66.769 kg 66.7 kg Microbiology Reports for the Last 24 Hours: Microbiology 01/21/24 15:06 Blood Blood Culture - Preliminary NO GROWTH AFTER 4 DAYS 01/21/24 15:00 Blood Blood Culture - Preliminary NO GROWTH AFTER 4 DAYS Constitutional Constitutional: no acute distress Comments: Frail. *Routine HEENT Exam Head: Present normocephalic Eye: Present EOMI and PERRL ENT: Present mucous membranes moist *Routine Neck Exam Neck: Present supple; Absent lymphadenopathy *Routine Respiratory Exam Respiratory: Present CTA bilaterally *Routine Cardiovascular Exam Cardiovascular: Present tachycardia and irregular rhythm *Routine Abdominal Exam Abdominal: Present soft and normoactive bowel sounds; Absent tenderness *Routine Extremities Exam Extremities: Present edema; Absent cyanosis or clubbing Comments: 2+ pitting LE edema. *Routine Skin Exam Skin: Present warm; Absent rash *Routine Neurological Exam Neurological: Present alert Assessment and Plan *Assessment and plan (1) Cardiogenic shock: Status: Acute Category: Medical Code(s): R57.0 - Cardiogenic shock (2) Acute on chronic congestive heart failure: Status: Acute Qualifiers: Heart failure type: unspecified Qualified Code(s): I50.9 - Heart failure, unspecified Category: Medical Code(s): I50.9 - Heart failure, unspecified Plan Ms. Melinda Hidalgo is a 83-year-old female with a medical history significant for A-fib, HFrEF (LVEF 20-25% 12/26/2023), dementia, progressive hearing loss who presents from nursing facility for weakness and hypotension. Daughter states patient has been weak for the past day, which became worse today. Patient is dementia at baseline and is unable to answer most questions appropriately. She also has significant hearing loss requiring cochlear implant. On arrival, patient's blood pressure was in the 80s over 50s heart rate in the 120s. Creatinine 1.8 (baseline 0.6), BNP 12,400, troponin 0.05. Patient was given 1 L normal saline bolus and contacted cardiology who recommended metoprolol tartrate 50 mg in admission. Case discussed with ED provider and decision was made to admit patient for A-fib RVR, acute on chronic HFrEF. #Cardiogenic shock #HFrEF exacerbation #A-fib RVR ? Patient was tachycardic 130s, hypotensive 80s over 50s on admission and alert when she reached the floor. ? However, she became more weak and endorsed increased work of breathing when she came to the floor. ? Repeat CXR revealed pulmonary edema. IV Lasix 40 mg given. ? Dr. Faust contacted, recommended starting milrinone. - After discussing with Dr. Faust, discontinued milrinone to help with hypotension and wean off Levophed. - Transitioned to PO digoxin 250mcg daily after IV bolus loading. ? Continue Levophed for pressure support. Wean as tolerated. - Started PO Lasix 40mg daily. Patient had about 3L output overnight with diuresis. ? Continue Eliquis 2.5 mg twice daily. ? Avoid IV fluids given volume overload. ? Consider more diuresis if needed. ? Cardiology consulted, appreciate recommendations and efforts. ? Follow-up limited echo. - Daughter has decided to make patient hospice care given progressively heart failure, does not want to pursue invasive interventions such as LHC. Unfortunately, [facility] cannot do hopice care. Only feasible choice for daughter is home with hospice. Hospice nurse will come tomorrow to evaluate patient. DNR/DNI
[2024-01-26] VITALS: BP 102/47; PULSE 93; PULSE 98; RESP 17; TEMP 37.3; O2SAT 97
[2024-01-26 04:00] VITALS: BP 113/63; PULSE 89; PULSE 99; RESP 17; TEMP 36.9; O2SAT 97; BMI 22.7
[2024-01-26 06:48] LABS: Basophils % 0.4 % (0.1-2.0); Eosinophils # 0.2 K/mm3 (0.0-0.4); Eosinophils % 2.1 % (0.1-12.0); Hematocrit 45.5 % (37.0-47.0); Hemoglobin 14.7 g/dL (12.2-16.2); Lymphocytes # 1.1 K/mm3 (0.7-4.5); Mean Corpuscular HGB Conc 32.3 g/dL (31.8-35.4); Mean Corpuscular Hemoglobin 31.7 pg (27.0-31.2); Mean Corpuscular Volume 98.1 fl (81-99); Mean Platelet Volume 8.7 fl (7.4-10.4); Monocytes # 0.8 K/mm3 (0.1-1.0); Monocytes % 8.8 % (1.7-9.3); Neutrophils # 7.3 K/mm3 (1.8-7.8); Neutrophils % 76.7 % (37.0-80.0); Platelet Count 181 K/mm3 (142-424); Red Blood Count 4.63 M/mm3 (4.20-5.40); Red Cell Distribution Width 14.4 % (11.5-17.5); White Blood Count 9.5 K/mm3 (4.8-10.8)
[2024-01-26 07:04] LABS: Chloride 95 mmol/L (98-107); Sodium 136 mmol/L (136-145)
[2024-01-26 07:07] LABS: Blood Urea Nitrogen 15 mg/dl (7-17); Carbon Dioxide 34 mmol/L (22.0-30.0); Creatinine Clearance Estimated 43 mL/min (50-200); Estimated Glomerular Filt Rate 53 ml/min (>60); GFR (African American) 64 ML/MIN (>60)
[2024-01-26 07:08] LABS: Glucose 111 mg/dl (74-100); Magnesium 1.6 mg/dl (1.6-2.3)
[2024-01-26 08:00] VITALS: BP 121/65; PULSE 100; PULSE 99; RESP 16; TEMP 36.3; O2SAT 94
[2024-01-26 08:59] VITALS: PULSE 82
[2024-01-26] MEDS: GABAPENTIN 300MG CAPSULE 300 MG PO (08:59)
[2024-01-26] MEDS: POTASSIUM CHLORIDE 20MEQ TAB 40 MEQ PO (08:59)
[2024-01-26] MEDS: DIGOXIN 0.25MG TABLET 250 MCG PO (08:59)
[2024-01-26] MEDS: CLOPIDOGREL 75MG TAB 75 MG PO (08:59)
[2024-01-26] MEDS: MAGNESIUM SULFATE IN WATER 2 GM/50 ML PIGGYBACK IV ×2 (08:59→10:32)
[2024-01-26] MEDS: MEMANTINE 10MG TABLET 10 MG PO (09:00)
[2024-01-26] MEDS: EMPAGLIFLOZIN 10MG TABLET 10 MG PO (09:00)
[2024-01-26] MEDS: APIXABAN 5MG TABLET 2.5 MG PO (09:00)
[2024-01-26] MEDS: FUROSEMIDE 40 MG TABLET PO (09:00)
[2024-01-26 12:00] VITALS: BP 125/63; PULSE 78; RESP 16; TEMP 36.4; O2SAT 95
--- NOTE | 2024-01-26 14:30 | EXP.DC.SUM ---
General Admission date:: 01/21/24 Discharge date: 01/26/24 HPI HPI HPI: Ms. Melinda Hidalgo is a 83-year-old female with a medical history significant for A-fib, HFrEF (LVEF 20-25% 12/26/2023), dementia, progressive hearing loss who presents from nursing facility for weakness and hypotension. Daughter states patient has been weak for the past day, which became worse today. Patient is dementia at baseline and is unable to answer most questions appropriately. She also has significant hearing loss requiring cochlear implant. On arrival, patient's blood pressure was in the 80s over 50s heart rate in the 120s. Creatinine 1.8 (baseline 0.6), BNP 12,400, troponin 0.05. Patient was given 1 L normal saline bolus and contacted cardiology who recommended metoprolol tartrate 50 mg in admission. Case discussed with ED provider and decision was made to admit patient for A-fib RVR, acute on chronic HFrEF. Hospital Course Hospital Course Hospital Course: Ms. Melinda Hidalgo is a 83-year-old female with a medical history significant for A-fib, HFrEF (LVEF 20-25% 12/26/2023), dementia, progressive hearing loss who presents from nursing facility for weakness and hypotension. Daughter states patient has been weak for the past day, which became worse today. Patient is dementia at baseline and is unable to answer most questions appropriately. She also has significant hearing loss requiring cochlear implant. On arrival, patient's blood pressure was in the 80s over 50s heart rate in the 120s. Creatinine 1.8 (baseline 0.6), BNP 12,400, troponin 0.05. Patient was given 1 L normal saline bolus and contacted cardiology who recommended metoprolol tartrate 50 mg in admission. Case discussed with ED provider and decision was made to admit patient for A-fib RVR, acute on chronic HFrEF. Cardiology was consulted during admission, assisted with care. Patient unfortunately has end-stage heart failure. Improvement in her kidney function. Adjustments made to rate controlling medications. Multiple goals of care discussion with family. Due to the progressive nature of her heart failure, will pursue hospice at discharge. Stable to discharge to the care of her family with hospice support. Problems addressed as follows: #Cardiogenic shock #HFrEF exacerbation #A-fib RVR ? Patient was tachycardic 130s, hypotensive 80s over 50s on admission and alert when she reached the floor. However, she became more weak and endorsed increased work of breathing when she came to the floor. Repeat CXR revealed pulmonary edema. IV diuretics were administered. Cardiology was contacted. Patient was started on milrinone as well as Levophed. Transitioned to digoxin for rate control. Able to gradually wean her milrinone and Levophed. Transitioned to oral diuresis with improvement in output. Continuing her Eliquis for anticoagulation. Patient has shown some minor improvement in kidney function and rate control. Continues to have severe heart failure with reduced ejection fraction however. After multiple discussions with family, Daughter has decided to make patient hospice care given progressively heart failure, does not want to pursue invasive interventions such as LHC. Unfortunately, [facility] cannot do hopice care. Only feasible choice for daughter is home with hospice. Hospice nurse will come tomorrow to evaluate patient. Echo was obtained showing severe reduction in EF of 20 to 25% with grade 2 diastolic dysfunction and moderate to severe mitral regurgitation. Hospice evaluated during admission. Equipment provided to family's home on day of discharge. Stable to discharge to the care of family and hospice. Total time spent on discharge 32 minutes in counseling, documentation, chart review, and direct care with patient. Exam Data for Last 24 hours Vital signs and Labs for Last 24 Hours: Temp Pulse Resp BP Pulse Ox O2 Del Method O2 Flow Rate 97.4 F L 82 16 121/65 94 L Nasal Cannula 2 01/26/24 08:00 01/26/24 08:59 01/26/24 08:00 01/26/24 08:00 01/26/24 08:00 01/26/24 11:00 01/26/24 11:00 Laboratory Results - last 24 hr 01/26/24 05:51: WBC 9.5, RBC 4.63, Hgb 14.7, Hct 45.5, MCV 98.1, MCH 31.7 H, MCHC 32.3, RDW 14.4, Plt Count 181, MPV 8.7, Neut % (Auto) 76.7, Lymph % (Auto) 12.0, [place] % (Auto) 8.8, Eos % (Auto) 2.1, Baso % (Auto) 0.4, Neut # (Auto) 7.3, Lymph # (Auto) 1.1, [place] # (Auto) 0.8, Eos # (Auto) 0.2, Baso # (Auto) 0.0, Sodium 136, Potassium 3.0 L, Chloride 95 L, Carbon Dioxide 34 H, Anion Gap 10.0, BUN 15, Creatinine 1.00, Estimated Creat Clear 43, Estimated GFR 53 L, Est GFR ( Amer) 64, Glucose 111 H, Calcium 9.0, Magnesium 1.6 I & O for Last 24 hours: Intake & Output 01/23/24 01/24/24 01/25/24 01/26/24 23:59 23:59 23:59 23:59 Intake Total 2220.166 / 2220.166 2044.803 / 2044.803 208.646 / 408.646 200 / 200 Output Total 2650 / 3250 4740 / 4790 2140 / 2140 300 / 300 Balance -429.834 / -1029.834 -2695.197 / -2745.197 -1931.354 / -1731.354 -100 / -100 Weight 67.614 kg 66.769 kg 66.7 kg 64.093 kg Microbiology Reports for the Last 24 Hours: Microbiology 01/21/24 15:06 Blood Blood Culture - Preliminary NO GROWTH AFTER 4 DAYS 01/21/24 15:00 Blood Blood Culture - Preliminary NO GROWTH AFTER 4 DAYS Constitutional Constitutional: no acute distress Comments: Frail. *Routine HEENT Exam Head: Present normocephalic Eye: Present EOMI and PERRL ENT: Present mucous membranes moist *Routine Neck Exam Neck: Present supple; Absent lymphadenopathy *Routine Respiratory Exam Respiratory: Present CTA bilaterally; Absent rhonchi, wheezes or crackles *Routine Cardiovascular Exam Cardiovascular: Present tachycardia and irregular rhythm *Routine Abdominal Exam Abdominal: Present soft and normoactive bowel sounds; Absent tenderness *Routine Rectal Exam Patient deferred: visual exam *Routine Exam Patient deferred: external exam *Routine Extremities Exam Extremities: Present edema; Absent cyanosis or clubbing Comments: 2+ pitting LE edema. *Routine Skin Exam Skin: Present warm; Absent rash *Routine Neurological Exam Neurological: Present alert and moving all extremities Results Data Completed and Pending Labs on day of discharge: Labs from last 24 hours 01/26/24 05:51 WBC 9.5 RBC 4.63 Hgb 14.7 Hct 45.5 MCV 98.1 MCH 31.7 H MCHC 32.3 RDW 14.4 Plt Count 181 MPV 8.7 Neut % (Auto) 76.7 Lymph % (Auto) 12.0 [place] % (Auto) 8.8 Eos % (Auto) 2.1 Baso % (Auto) 0.4 Neut # (Auto) 7.3 Lymph # (Auto) 1.1 [place] # (Auto) 0.8 Eos # (Auto) 0.2 Baso # (Auto) 0.0 Sodium 136 Potassium 3.0 L Chloride 95 L Carbon Dioxide 34 H Anion Gap 10.0 BUN 15 Creatinine 1.00 Estimated Creat Clear 43 Estimated GFR 53 L Est GFR ( Amer) 64 Glucose 111 H Calcium 9.0 Magnesium 1.6 Preliminary micro results at discharge 01/21/24 15:06 Blood Culture - Preliminary Blood NO GROWTH AFTER 4 DAYS 01/21/24 15:00 Blood Culture - Preliminary Blood NO GROWTH AFTER 4 DAYS DS: Diagnosis Discharge Diagnosis (1) Cardiogenic shock: Status: Acute Code(s): R57.0 - Cardiogenic shock (2) Acute on chronic congestive heart failure: Status: Acute Code(s): I50.9 - Heart failure, unspecified Qualifiers: Heart failure type: unspecified Qualified Code(s): I50.9 - Heart failure, unspecified Meds Home Medications and Allergies Home Medications ?Medication ?Instructions ?Recorded ?Confirmed ?Type gabapentin 300 mg capsule 300 mg PO TID 02/25/18 01/21/24 History memantine 10 mg tablet 10 mg PO BID 02/25/18 01/21/24 History omeprazole 20 mg capsule,delayed 20 mg PO HS 06/27/23 01/21/24 History release potassium chloride 10 mEq 10 meq PO DAILY 06/27/23 01/21/24 History capsule,extended release empagliflozin 10 mg tablet 10 mg PO DAILY #30 tabs 12/29/23 01/21/24 Rx (Jardiance) pravastatin 40 mg tablet 40 mg PO HS #30 tabs 12/29/23 01/21/24 Rx spironolactone 25 mg tablet 25 mg PO BID #60 tabs 12/29/23 01/21/24 Rx polyethylene glycol 3350 17 17 g PO DAILY PRN Constipation 01/21/24 01/21/24 History gram/dose oral powder (Miralax) apixaban 5 mg tablet (Eliquis) 5 mg PO BID 30 days #60 tabs 01/26/24 Rx clopidogrel 75 mg tablet 75 mg PO DAILY 30 days #30 tabs 01/26/24 Rx digoxin 125 mcg (0.125 mg) tablet 62.5 mcg (1/2 x 125 mcg (0.125 01/26/24 Rx mg)) PO DAILY 30 days #15 tabs furosemide 40 mg tablet 40 mg PO DAILY 30 days #30 tabs 01/26/24 Rx New Prescriptions to Start Prescriptions: apixaban [Eliquis] Diamond,Sly clopidogrel Diamond,Sly digoxin Diamond,Sly furosemide Diamond,Sly Allergies Allergy/AdvReac Type Severity Reaction Status Date / Time Penicillins [PENICILLINS] Allergy Unknown I-RASH Verified 01/11/24 14:56 Sulfa (Sulfonamide Allergy Unknown I-RASH Verified 01/11/24 14:56 Antibiotics) [SULFA (SULFONAMIDE ANTIBIOTICS)] Discharge Plan Disposition Patient Disposition: Hospice - Home Condition: Serious Discharge Order Discharge Orders: Discharge Order (Routine); Ordered 01/26/24 Ordered By: Sly Fields Follow up Plan Follow up with: Airam Urban APRN [Primary Care Provider] - Enter time for follow up Prescriptions/Medication Reconciliation: New furosemide 40 mg Tablet 40 mg PO DAILY 30 Days Qty: 30 0RF clopidogrel 75 mg Tablet 75 mg PO DAILY 30 Days Qty: 30 0RF digoxin 125 mcg (0.125 mg) Tablet 62.5 mcg PO DAILY 30 Days Qty: 15 0RF Eliquis 5 mg Tablet 5 mg PO BID 30 Days Qty: 60 0RF Continued memantine 10 mg tablet 10 mg PO BID gabapentin 300 mg capsule 300 mg PO TID potassium chloride 10 mEq capsule, extended release 10 meq PO DAILY omeprazole 20 mg capsule,delayed release(DR/EC) 20 mg PO HS pravastatin 40 mg Tablet 40 mg PO HS Qty: 30 0RF spironolactone 25 mg Tablet 25 mg PO BID Qty: 60 0RF Jardiance 10 mg Tablet 10 mg PO DAILY Qty: 30 0RF polyethylene glycol 3350 [Miralax] 17 gram/dose Powder 17 g PO DAILY PRN (Reason: Constipation) Discontinued metoprolol succinate 25 mg Tablet Extended Release 24 Hr 25 mg PO DAILY Qty: 30 0RF Rx Instructions: Hold if systolic <110, diastolic <90 Problem Reconciliation Problems Reviewed?: Yes Patient Discharge Instructions ACTIVITY: Continue current activity DIET: continue same diet Patient Instructions: DI for Heart Attack, DI for Heart Failure, DI for Atrial Fibrillation Print Language: Sinhala Providers Primary Care Provider: Airam Urban Admsherron Provider: Kwabena Long Attending Provider: Kwabena Long
--- NOTE | 2024-01-26 15:13 | PC.NURSE ---
Current Medications Melinda Joyner 1940 Acetaminophen (Acetaminophen 325mg Tab) 650 mg PO Q4HP PRN PRN Reason: Fever or Mild Pain (1-3) Stop: 02/20/24 15:12 Apixaban (Apixaban 5mg Tablet) 5 mg PO BID [facility] Stop: 02/25/24 20:59 Clopidogrel Bisulfate (Clopidogrel 75mg Tab) 75 mg PO DAILY TRAN Stop: 02/21/24 09:44 Last Admin: 01/26/24 08:59 Dose: 75 mg Digoxin (Digoxin 0.125mg Tablet) 62.5 mcg PO DAILY TRAN Stop: 02/26/24 08:59 Empagliflozin (Empagliflozin 10mg Tablet) 10 mg PO DAILY TRAN Stop: 02/21/24 08:59 Last Admin: 01/26/24 09:00 Dose: 10 mg Furosemide (Furosemide 40 Mg Tablet) 40 mg PO DAILY TRAN Stop: 02/23/24 10:29 Last Admin: 01/26/24 09:00 Dose: 40 mg Gabapentin (Gabapentin 300mg Capsule) 300 mg PO TID TRAN Stop: 02/20/24 20:59 Last Admin: 01/26/24 14:05 Dose: Not Given Memantine (Memantine 10mg Tablet) 10 mg PO BID TRAN Stop: 02/20/24 20:59 Last Admin: 01/26/24 09:00 Dose: 10 mg Ondansetron HCl (Ondansetron 4mg/2ml Vial) 4 mg IV Q8HP PRN PRN Reason: Nausea Stop: 02/20/24 15:12 Pantoprazole Sodium (Pantoprazole 40mg Tablet) 40 mg PO HS TRAN Stop: 02/21/24 20:59 Last Admin: 01/25/24 21:21 Dose: 40 mg Potassium Chloride (Potassium Chloride 20meq Tab) 40 meq PO Q4H TRAN Stop: 01/26/24 16:31 Last Admin: 01/26/24 14:21 Dose: Not Given Pravastatin Sodium (Pravastatin 40mg Tab) 40 mg PO HS TRAN Stop: 02/20/24 20:59 Last Admin: 01/25/24 21:18 Dose: 40 mg Sodium Chloride (Sodium Chloride 0.9% 10ml Flush Syringe) 10 ml IV NEEDED PRN PRN Reason: Maintain IV Site Stop: 02/21/24 08:30
== END 2024-01-26 15:20 | disposition hospice, home (50) | DRG 280 ==
LOC: ER 15:13 → 2ND 15:24
PROVIDERS: Physician Assistant; Admitting Provider Student in an Organized Health Care Education/Training Program; Emergency Provider Emergency Medicine; PCP Nurse Practitioner Family; Visit Provider Student in an Organized Health Care Education/Training Program
DX: I50.23 Acute on chronic systolic (congestive) heart failure (principal); R57.0 Cardiogenic shock; I21.4 Non-ST elevation (NSTEMI) myocardial infarction; N17.9 Acute kidney failure, unspecified; I48.0 Paroxysmal atrial fibrillation; F03.90 Unspecified dementia, unspecified severity, without behavioral disturbance, psychotic disturbance, mood disturbance, and anxiety; Z79.899 Other long term (current) drug therapy; Z79.01 Long term (current) use of anticoagulants; Z96.21 Cochlear implant status; Z66 Do not resuscitate
CPT/HCPCS: 36415; 71045; 80048; 80053; 81001; 82803; 82962; 83605; 83735; 83880; 84436; 84443; 84484; 85025; 85610; 86803; 87040; 87389; 93005; 93308; 99285; J0282; J1160; J1650; J1940; J2260; J3475; J7030; J7060